=== PATIENT | male | born 1960 | race Caucasian/White ===

== ENCOUNTER 2016-07-30 14:08 | Emergency (ER) | payer MEDICARE ==
[~2016-07-30] VITALS: Ht 185.4 cm; Wt 109.0 kg
[~2016-07-30 14:08] MED LIST: ARIP1TAB87 PO; CELE200 PO; CHLO100 PO; CYCL1PAK PO; FENT25DI T-DERMAL; FIORTAB4 PO; HALC0.25 PO; HYDR-3535 PO; PROP20TA24 PO; SUMA25TA2 PO; TRAZ100 PO; Z.0.OXYGEN INH
[2016-07-30 14:32] VITALS: BP 118/79; PULSE 72; RESP 16; TEMP 98.8; O2SAT 99
[2016-07-30] MEDS ORDERED: CHLO200T5 PO (14:46)
[2016-07-30] MEDS ORDERED: TRIA1TAB21 PO (14:46)
[2016-07-30] MEDS ORDERED: FENTANYL 25 MCG/HR T-DERMAL (14:46)
[2016-07-30] MEDS ORDERED: [UNRECOGNIZED DRUG - OTHER] (14:46)
[2016-07-30] MEDS ORDERED: BUTA1CAP PO (14:46)
[2016-07-30] MEDS ORDERED: SUMATRIPTAN (14:46)
[2016-07-30] MEDS ORDERED: HYDR-3535 PO (14:46)
[2016-07-30] MEDS ORDERED: TRAZ150T75 PO (14:46)
[2016-07-30] MEDS ORDERED: PROP20TA3 PO (14:46)
[2016-07-30] MEDS ORDERED: CELE200C PO (14:46)
[2016-07-30] MEDS ORDERED: ABIL30TA2 PO (14:46)
[2016-07-30] MEDS ORDERED: oxyCODONE/ACETAMINOPHEN 5 MG/325 MG TAB PO ONE ×2 (15:15)
--- NOTE | 2016-07-30 15:36 | RADHPO ---
EXAM DATE/TIME: 07/30/2016 15:22 [place] COMPARISON: No previous studies available for comparison. INDICATIONS : Fall. Headache. RADIATION DOSE: 60.14 CTDIvol (mGy) MEDICAL HISTORY : Seizures. Hypertension. Chronic obstructive pulmonary disease. SURGICAL HISTORY : Umbilical hernia repair. ENCOUNTER: Initial ACUITY: 2 days PAIN SCALE: 6/10 LOCATION: cranial TECHNIQUE: Multiple contiguous axial images were obtained of the head. Using automated exposure control and adj ustment of the mA and/or kV according to patient size, radiation dose was kept as low as reasonably a chievable to obtain optimal diagnostic quality images. FINDINGS: CEREBRUM: The ventricles are normal for age. No evidence of midline shift, mass lesion, hemorrhage or acute in farction. No extra-axial fluid collections are seen. POSTERIOR FOSSA: The cerebellum and brainstem are intact. The 4th ventricle is midline. The cerebellopontine angle i s unremarkable. EXTRACRANIAL: The visualized portion of the orbits is intact. SKULL: The calvaria is intact. No evidence of skull fracture. CONCLUSION: Unremarkable noncontrast CT. Sravan Alvarez MD on July 30, 2016 at 15:34 Board Certified Radiologist. This report was verified electronically.
[2016-07-30] MEDS ORDERED: PERC5TAB12 PO (16:55)
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
[2016-07-30 16:59] VITALS: BP 120/80
[2016-07-31] MEDS ORDERED: FENT25DI T-DERMAL (11:21)
== END 2016-07-30 17:02 | disposition home or self-care (01) ==
LOC: PHEFT 14:08
DX: M54.5 Low back pain (principal); J44.9 Chronic obstructive pulmonary disease, unspecified; I10 Essential (primary) hypertension; Z96.641 Presence of right artificial hip joint; Z96.612 Presence of left artificial shoulder joint; Z96.698 Presence of other orthopedic joint implants; Z72.0 Tobacco use; M19.90 Unspecified osteoarthritis, unspecified site; W19.XXXA Unspecified fall, initial encounter
CPT/HCPCS: 70450; 99284

== ENCOUNTER 2016-08-26 16:57 | Emergency (ER) | payer MEDICARE ==
[~2016-08-26] VITALS: Ht 185.4 cm; Wt 112.6 kg
[~2016-08-26 16:57] MED LIST changes: +ABIL30TA2 PO; -ARIP1TAB87 PO; +BUTA1CAP PO; -CELE200 PO; +CELE200C PO; -CHLO100 PO; +CHLO200T5 PO; -CYCL1PAK PO; -FIORTAB4 PO; -HALC0.25 PO; +PERC5TAB12 PO; -PROP20TA24 PO; +PROP20TA3 PO; -SUMA25TA2 PO; +SUMATRIPTAN; -TRAZ100 PO; +TRAZ150T75 PO; +TRIA1TAB21 PO; -Z.0.OXYGEN INH; +[UNRECOGNIZED DRUG - OTHER]
[2016-08-26 17:03] VITALS: BP 131/79; PULSE 80; RESP 20; TEMP 98.3; O2SAT 98
[2016-08-26] MEDS ORDERED: BACT800T5 PO (17:51)
[2016-08-26] MEDS ORDERED: ERYTOIN10 EACH EYE (17:51)
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
== END 2016-08-26 18:00 | disposition home or self-care (01) ==
LOC: PHEFT 16:57
DX: H00.11 Chalazion right upper eyelid (principal)
CPT/HCPCS: 99283

== ENCOUNTER 2016-09-24 13:01 | Emergency (ER) | payer MEDICARE, OTHER ==
[~2016-09-24 13:01] MED LIST changes: +BACT800T5 PO; +ERYTOIN10 EACH EYE; -TRAZ150T75 PO; -TRIA1TAB21 PO
[2016-09-24 13:16] VITALS: BP 146/100; PULSE 77; RESP 20; TEMP 98.6; O2SAT 96
[2016-09-24] MEDS ORDERED: HYDR-3535 PO ×3 (14:14→16:46)
[2016-09-24] MEDS ORDERED: PROP20TA3 PO (14:14)
[2016-09-24] MEDS ORDERED: CELE100C PO (14:14)
[2016-09-24] MEDS ORDERED: CYCL1TAB29 PO (14:14)
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
== END 2016-09-24 14:38 | disposition home or self-care (01) ==
LOC: PHED 13:01
DX: G89.29 Other chronic pain (principal); M25.559 Pain in unspecified hip; Z99.3 Dependence on wheelchair; J44.9 Chronic obstructive pulmonary disease, unspecified; H91.90 Unspecified hearing loss, unspecified ear; I10 Essential (primary) hypertension; Z72.0 Tobacco use; Z87.828 Personal history of other (healed) physical injury and trauma; Z99.81 Dependence on supplemental oxygen
CPT/HCPCS: 99281

== ENCOUNTER 2016-10-08 11:43 | Emergency (ER) | payer MEDICARE ==
[~2016-10-08] VITALS: Ht 182.9 cm; Wt 112.0 kg
[~2016-10-08 11:43] MED LIST changes: -ABIL30TA2 PO; -BACT800T5 PO; -BUTA1CAP PO; +CELE100C PO; -CELE200C PO; -CHLO200T5 PO; +CYCL1TAB29 PO; -ERYTOIN10 EACH EYE; -FENT25DI T-DERMAL; -PERC5TAB12 PO; -SUMATRIPTAN; -[UNRECOGNIZED DRUG - OTHER]
[2016-10-08 12:03] VITALS: BP 111/79; PULSE 68; RESP 18; TEMP 97.7; O2SAT 97
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
[2016-10-08] MEDS ORDERED: TYLETAB34 PO (12:52)
== END 2016-10-08 13:52 | disposition home or self-care (01) ==
LOC: PHEFT 11:43
DX: M54.5 Low back pain (principal); G89.29 Other chronic pain; I10 Essential (primary) hypertension; G47.30 Sleep apnea, unspecified; H91.90 Unspecified hearing loss, unspecified ear; Z76.0 Encounter for issue of repeat prescription; Z72.0 Tobacco use; Z87.39 Personal history of other diseases of the musculoskeletal system and connective tissue; Z86.59 Personal history of other mental and behavioral disorders; Z87.09 Personal history of other diseases of the respiratory system; Z86.69 Personal history of other diseases of the nervous system and sense organs
CPT/HCPCS: 99283

== ENCOUNTER 2017-03-16 08:10 | Emergency (ER) | payer MEDICARE, OTHER ==
[~2017-03-16] VITALS: Ht 185.4 cm; Wt 106.5 kg
[~2017-03-16 08:10] MED LIST changes: +CYCL10TA PO; -CYCL1TAB29 PO; +TYLETAB34 PO
[2017-03-16 08:17] VITALS: BP 118/77; PULSE 70; RESP 16; TEMP 97.3; O2SAT 99
[2017-03-16] MEDS ORDERED: HYDR-3583 PO ×2 (08:32→08:53)
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
== END 2017-03-16 09:03 | disposition home or self-care (01) ==
LOC: PHED 08:10
DX: Z76.0 Encounter for issue of repeat prescription (principal); G89.29 Other chronic pain; M19.90 Unspecified osteoarthritis, unspecified site; E11.9 Type 2 diabetes mellitus without complications; F32.9 Major depressive disorder, single episode, unspecified; I10 Essential (primary) hypertension; J44.9 Chronic obstructive pulmonary disease, unspecified; F17.290 Nicotine dependence, other tobacco product, uncomplicated
CPT/HCPCS: 99281

== ENCOUNTER 2017-04-02 11:21 | Emergency (ER) | payer OTHER ==
[~2017-04-02] VITALS: Ht 185.4 cm; Wt 106.0 kg
[~2017-04-02 11:21] MED LIST changes: -CELE100C PO; -CYCL10TA PO; -HYDR-3535 PO; +HYDR-3583 PO; -TYLETAB34 PO
[2017-04-02 11:24] VITALS: BP 129/86; PULSE 50; RESP 16; TEMP 97.8; O2SAT 99
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
--- NOTE | 2017-04-02 12:33 | RADRPT ---
EXAM DATE/TIME: 04/02/2017 12:11 [facility] COMPARISON: CT BRAIN W/O CONTRAST, July 30, 2016, 15:22. INDICATIONS : Fell out of bed this morning. Headache. RADIATION DOSE: 60.38 CTDIvol (mGy) MEDICAL HISTORY : Seizures. Hypertension. Brain injury. Anticoagulant therapy. SURGICAL HISTORY : None. ENCOUNTER: Initial ACUITY: 1 day PAIN SCALE: 8/10 LOCATION: Bilateral cranial TECHNIQUE: Multiple contiguous axial images were obtained of the head. Using automated exposure control and adj ustment of the mA and/or kV according to patient size, radiation dose was kept as low as reasonably a chievable to obtain optimal diagnostic quality images. DICOM format image data is available electro nically for review and comparison. FINDINGS: CEREBRUM: The ventricles are normal for age. Mild stable cortical atrophy overlie both frontal lobes. No eviden ce of midline shift, mass lesion, hemorrhage or acute infarction. No extra-axial fluid collections a re seen. POSTERIOR FOSSA: The cerebellum and brainstem are intact. The 4th ventricle is midline. The cerebellopontine angle i s unremarkable. EXTRACRANIAL: The visualized portion of the orbits is intact. SKULL: The calvaria is intact. No evidence of skull fracture. CONCLUSION: Unremarkable and stable CT scan of the brain compared to the prior examination. Robert Jones MD on April 02, 2017 at 12:29 Board Certified Radiologist. This report was verified electronically.
[2017-04-02] MEDS ORDERED: ACETAMINOPHEN 325 MG TAB PO ONE (12:45)
[2017-04-02] MEDS ORDERED: AMBI10TA PO (13:06)
[2017-04-02] MEDS ORDERED: CELE200C PO (13:06)
== END 2017-04-02 13:28 | disposition home or self-care (01) ==
LOC: PHED 11:21
DX: G44.309 Post-traumatic headache, unspecified, not intractable (principal); I10 Essential (primary) hypertension; Z72.0 Tobacco use
CPT/HCPCS: 70450; 99284

== ENCOUNTER 2017-04-05 11:33 | Emergency (ER) | payer OTHER ==
[~2017-04-05] VITALS: Ht 177.8 cm; Wt 100.0 kg
[~2017-04-05 11:33] MED LIST changes: +AMBI10TA PO; +CELE200C PO
[2017-04-05 12:03] VITALS: BP 114/73; PULSE 68; RESP 18; TEMP 97.6; O2SAT 99
[2017-04-05] MEDS ORDERED: ACETAMINOPHEN/HYDROcodone 325 MG/10 MG TAB PO ONE (12:15)
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
[2017-04-05 13:01] LABS: AUTOMATED NEUTROPHIL # 2.3 TH/MM3 (1.8-7.7); BASOPHIL # 0.1 TH/MM3 (0-0.2); BASOPHIL % 1.2 % (0.0-2.0); EOSINOPHIL # 0.1 TH/MM3 (0-0.4); EOSINOPHIL % 2.9 % (0.0-4.0); HEMATOCRIT 41.6 % (39.0-51.0); HEMOGLOBIN 14.7 GM/DL (13.0-17.0); LYMPH % 29.9 % (9.0-44.0); LYMPHOCYTE # 1.3 TH/MM3 (1.0-4.8); MEAN CELL VOLUME 89.7 FL (80.0-100.0); MEAN CORPUSCULAR HEMOGLOBIN 31.7 PG (27.0-34.0); MEAN CORPUSCULAR HGB CONC 35.4 % (32.0-36.0); MEAN PLATELET VOLUME 7.6 FL (7.0-11.0); MONO % 12.9 % (0.0-8.0); MONOCYTE # 0.6 TH/MM3 (0-0.9); NEUT % 53.1 % (16.0-70.0); PLATELET COUNT 192 TH/MM3 (150-450); RED BLOOD COUNT 4.64 MIL/MM3 (4.50-5.90); RED CELL DISTRIBUTION WIDTH 13.3 % (11.6-17.2); WHITE BLOOD COUNT 4.4 TH/MM3 (4.0-11.0)
[2017-04-05 13:16] LABS: ALBUMIN 3.2 GM/DL (3.4-5.0); AST (GOT) 14 U/L (15-37); BICARBONATE 29.3 MEQ/L (21.0-32.0); BLOOD UREA NITROGEN 20 MG/DL (7-18); CALCIUM 8.1 MG/DL (8.5-10.1); CHLORIDE 105 MEQ/L (98-107); CREATININE 1.04 MG/DL (0.60-1.30); GLOMERULAR FILTRATION RATE 74 ML/MIN (>89); GLUCOSE,RANDOM 96 MG/DL (74-106); SODIUM (NA) 139 MEQ/L (136-145)
[2017-04-05 13:26] LABS: ACETAMINOPHEN LESS THAN 2.0 MCG/ML (10.0-30.0); ALKALINE PHOSPHATASE 72 U/L (45-117); ALT (GPT) 14 U/L (12-78); TOTAL BILIRUBIN ADULT 0.2 MG/DL (0.2-1.0); TOTAL PROTEIN 6.6 GM/DL (6.4-8.2)
[2017-04-06 01:06] VITALS: BP 117/74; PULSE 51; RESP 18; O2SAT 98
[2017-04-06] MEDS ORDERED: IBUPROFEN 600 MG TAB PO ONE (01:15)
[2017-04-06] MEDS ORDERED: ACETAMINOPHEN 325 MG TAB PO ONE (04:15)
[2017-04-06] MEDS ORDERED: CELECOXIB 200 MG CAP PO ONE (08:15)
--- NOTE | 2017-04-06 11:39 | PD ---
Physical Exam Date Seen by Provider: Apr 06, 2017 Time Seen by Provider: 11:37 Narrative 56-year-old male patient was brought to the emergency Department under Wright act. The patient has been seen and evaluated by the psychiatric nurse practitioner, Peyton, to the Wright act. The patient denies any suicidal or homicidal ideation. He is happy and excited to go home. Data Data Last Documented VS Vital Signs Date Time Temp Pulse Resp B/P (MAP) Pulse Ox O2 Delivery O2 Flow Rate FiO2 04/06/17 01:06 51 18 117/74 (88) 98 Nasal Cannula 2.00 04/05/17 12:03 97.6 Orders Orders Complete Blood Count With Diff (04/05/17 12:12) Comprehensive Metabolic Panel (04/05/17 12:12) Thyroid Stimulating Hormone (04/05/17 12:12) Psych Screen (04/05/17 12:12) Drug Screen, Random Urine (04/05/17 12:12) Alcohol (Ethanol) (04/05/17 12:12) Salicylates (Aspirin) (04/05/17 12:12) Tylenol (Acetaminophen) (04/05/17 12:12) Acetamin-Hydrocod 325-10 Mg ([place] 10-32 (04/05/17 12:15) Ibuprofen (Motrin) (04/06/17 01:15) Acetaminophen (Tylenol) (04/06/17 04:15) Diet Regular Basic (04/06/17 Breakfast) Celecoxib (Celebrex) (04/06/17 08:15) Labs Laboratory Tests Test 04/05/17 11:57 04/05/17 12:30 Urine Opiates Screen NEG Urine Barbiturates Screen NEG Urine Amphetamines Screen NEG Urine Benzodiazepines Screen NEG Urine Cocaine Screen NEG Urine Cannabinoids Screen NEG White Blood Count 4.4 TH/MM3 Red Blood Count 4.64 MIL/MM3 Hemoglobin 14.7 GM/DL Hematocrit 41.6 % Mean Corpuscular Volume 89.7 FL Mean Corpuscular Hemoglobin 31.7 PG Mean Corpuscular Hemoglobin Concent 35.4 % Red Cell Distribution Width 13.3 % Platelet Count 192 TH/MM3 Mean Platelet Volume 7.6 FL Neutrophils (%) (Auto) 53.1 % Lymphocytes (%) (Auto) 29.9 % Monocytes (%) (Auto) 12.9 % Eosinophils (%) (Auto) 2.9 % Basophils (%) (Auto) 1.2 % Neutrophils # (Auto) 2.3 TH/MM3 Lymphocytes # (Auto) 1.3 TH/MM3 Monocytes # (Auto) 0.6 TH/MM3 Eosinophils # (Auto) 0.1 TH/MM3 Basophils # (Auto) 0.1 TH/MM3 CBC Comment DIFF FINAL Differential Comment Blood Urea Nitrogen 20 MG/DL Creatinine 1.04 MG/DL Random Glucose 96 MG/DL Total Protein 6.6 GM/DL Albumin 3.2 GM/DL Calcium Level 8.1 MG/DL Alkaline Phosphatase 72 U/L Aspartate Amino Transf (AST/SGOT) 14 U/L Alanine Aminotransferase (ALT/SGPT) 14 U/L Total Bilirubin 0.2 MG/DL Sodium Level 139 MEQ/L Potassium Level 4.5 MEQ/L Chloride Level 105 MEQ/L Carbon Dioxide Level 29.3 MEQ/L Anion Gap 5 MEQ/L Estimat Glomerular Filtration Rate 74 ML/MIN Thyroid Stimulating Hormone 3rd Gen 1.020 uIU/ML Salicylates Level 5.5 MG/DL Acetaminophen Level LESS THAN 2.0 MCG/ML Ethyl Alcohol Level LESS THAN 3 MG/DL MDM Supervised Visit with [facility]: No Narrative Course 56-year-old male was brought to the emergency Department under Wright act. His Wright act has been lifted by the psychiatric nurse practitioner. The patient denies any suicidal or homicidal ideations and would like to go home. The patient was discharged in stable condition with instructions, including return instructions and follow up instructions. Diagnosis Primary Impression: Chronic pain Qualified Codes: G89.29 - Other chronic pain Referrals: Primary Care Physician call for appointment Patient Instructions: Chronic Pain (ED), General Instructions Additional Instruction: Follow-up with your primary care physician. Return to the emergency department for any acute worsening of symptoms. Med/Other Pt SpecificInfo: No Change to Meds Disposition: 01 DISCHARGE HOME Condition: Stable Domenica Manriquez Apr 06, 2017 11:39
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
== END 2017-04-06 13:26 | disposition home or self-care (01) ==
LOC: NEDAMB 11:33 → NEPD 04-06 13:26
DX: G89.29 Other chronic pain (principal); F43.20 Adjustment disorder, unspecified; M19.90 Unspecified osteoarthritis, unspecified site; I10 Essential (primary) hypertension; J44.9 Chronic obstructive pulmonary disease, unspecified; E11.9 Type 2 diabetes mellitus without complications; F60.9 Personality disorder, unspecified; F17.290 Nicotine dependence, other tobacco product, uncomplicated
CPT/HCPCS: 80053; 80307; 84443; 85025; 99284

== ENCOUNTER → 2017-05-29 | Outpatient (CLI) | payer OTHER ==
[~2017-05-29] MED LIST changes: +GABA300C5 PO
--- NOTE | 2017-06-12 13:54 | RSPPFT ---
DATE OF PROCEDURE: 05/29/17 COMMENTS: Spirometry with FVC of 2.5 at 48% of predicted, FEV1 of 1.2 at 28%, FEV1/FVC ratio is 48%. There is a positive and significant response to acutely inhaled bronchodilator. Slow vital capacity is 61% of predicted. TLC is 76%. Diffusion capacity is 57% of predicted and normal when corrected for alveolar volume. IMPRESSION: 1. Moderately severe airways obstruction. 2. Positive and significant response to acutely inhaled bronchodilator. 3. Associated restrictive component. 4. Reduced diffusion but normal when corrected for lung volumes.
== END ==
LOC: PHRSP 10:29
PROVIDERS: ATTEND Internal Medicine Sleep Medicine
DX: R06.89 Other abnormalities of breathing (principal)
CPT/HCPCS: 36600; 82805; 94060; 94729

== ENCOUNTER 2017-06-04 15:45 | Inpatient (IN) | payer OTHER, MEDICARE ==
[2017-06-04] VITALS (15 sets, daily range): BP systolic 93–115; BP diastolic 53–68; PULSE 66–84; RESP 15–21; TEMP 97.9–99.5; O2SAT 97–100
[~2017-06-04] VITALS: Ht 180.3 cm; Wt 111.3 kg
[~2017-06-04 15:45] MED LIST changes: -GABA300C5 PO
[2017-06-04] MEDS ORDERED: SODIUM CHLOR 0.9% 1000 ML INJ 1,000 ML IV SCH (15:55)
[2017-06-04] MEDS ORDERED: DOPamine 800 MG/500 ML INJ 500 ML IV PRN (16:00)
[2017-06-04] MEDS ORDERED: SODIUM CHLORIDE 0.9% FLUSH 10 ML FLUSH IV FLUSH PRN (16:00)
[2017-06-04] MEDS ORDERED: TERBUTALINE INJ 1 MG/ML AMP SQ PRN ×2 (16:00→17:45)
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
[2017-06-04] MEDS ORDERED: VANCOMYCIN INJ 1,000 MG in SODIUM CHLOR 0.9% 250 ML INJ 250 ML IV ONE (16:45)
[2017-06-04] MEDS ORDERED: PIPERACIL-TAZO 4.5 GM PREMIX 100 ML IV ONE (16:45)
[2017-06-04] MEDS ORDERED: SODIUM CHLOR 0.9% 1000 ML INJ 1,000 ML IV ONE ×2 (16:45→19:15)
--- NOTE | 2017-06-04 16:53 | RADRPT ---
EXAM DATE/TIME: 06/04/2017 16:17 [facility] COMPARISON: No previous studies available for comparison. INDICATIONS : Short of breath. MEDICAL HISTORY : None. SURGICAL HISTORY : None. ENCOUNTER: Initial ACUITY: 1 day PAIN SCORE: 0/10 LOCATION: Bilateral chest FINDINGS: Endotracheal tube in good position. NG enters stomach. Ill-defined airspace disease in the upper righ t lung which could represent a bronchopneumonia. Minimal basilar density as well. No significant effu heidi. No pneumothorax. CONCLUSION: 1. Patchy air space disease in the right lung especially the upper right lung. Differential diagnosis includes pneumonia and aspiration. Endotracheal tube and nasogastric tube in good position. Ludin Woods MD on June 04, 2017 at 16:49 Board Certified Radiologist. This report was verified electronically.
--- NOTE | 2017-06-04 17:01 | RADRPT ---
EXAM DATE/TIME: 06/04/2017 16:42 [facility] COMPARISON: No previous studies available for comparison. INDICATIONS : Altered mental status, post code. RADIATION DOSE: 56.35 CTDIvol (mGy) MEDICAL HISTORY : Seizures. Hypertension. Chronic obstructive pulmonary disease.diabetic SURGICAL HISTORY : None. ENCOUNTER: Initial ACUITY: 1 day PAIN SCALE: Non-responsive LOCATION: cranial TECHNIQUE: Multiple contiguous axial images were obtained of the head. Using automated exposure control and adj ustment of the mA and/or kV according to patient size, radiation dose was kept as low as reasonably a chievable to obtain optimal diagnostic quality images. DICOM format image data is available electro nically for review and comparison. FINDINGS: CEREBRUM: The ventricles are normal for age. No evidence of midline shift, mass lesion, hemorrhage or acute in farction. No extra-axial fluid collections are seen. POSTERIOR FOSSA: The cerebellum and brainstem are intact. The 4th ventricle is midline. The cerebellopontine angle i s unremarkable. EXTRACRANIAL: The visualized portion of the orbits is intact. SKULL: The calvaria is intact. No evidence of skull fracture. CONCLUSION: Normal examination. Ludin Woods MD on June 04, 2017 at 16:56 Board Certified Radiologist. This report was verified electronically.
[2017-06-04 17:21] LABS: EOSINOPHIL % 0.1 % (0.0-4.0); HEMATOCRIT 43.3 % (39.0-51.0); HEMOGLOBIN 13.6 GM/DL (13.0-17.0); LYMPH % 9.7 % (9.0-44.0); LYMPHOCYTE # 2.9 TH/MM3 (1.0-4.8); MEAN CELL VOLUME 98.7 FL (80.0-100.0); MEAN CORPUSCULAR HEMOGLOBIN 30.9 PG (27.0-34.0); MEAN CORPUSCULAR HGB CONC 31.3 % (32.0-36.0); MEAN PLATELET VOLUME 8.7 FL (7.0-11.0); MONO % 12.5 % (0.0-8.0); MONOCYTE # 3.7 TH/MM3 (0-0.9); NEUT % 77.7 % (16.0-70.0); PLATELET COUNT 308 TH/MM3 (150-450); RED BLOOD COUNT 4.39 MIL/MM3 (4.50-5.90); RED CELL DISTRIBUTION WIDTH 15.4 % (11.6-17.2); WHITE BLOOD COUNT 29.5 TH/MM3 (4.0-11.0)
[2017-06-04] MEDS ORDERED: GABA300C5 PO (17:37)
[2017-06-04] MEDS ORDERED: Vancomycin Consult Pharmacy 1 EA OTHER SCH ×2 (17:45)
[2017-06-04] MEDS ORDERED: GLUCAGON 1 MG/ML VIAL OTHER PRN ×2 (17:45→21:15)
[2017-06-04] MEDS ORDERED: BISACODYL 10 MG SUPP RECTAL PRN (17:45)
[2017-06-04] MEDS ORDERED: NOREPINEPHRINE-DEXTROSE DRIP 250 ML IV PRN (17:45)
[2017-06-04] MEDS ORDERED: CHLORHEXIDINE GLUCONATE 2 % 1 PACK (2 CLOTHS) TOP PRN (17:45)
[2017-06-04] MEDS ORDERED: DEXTROSE 50% IN WATER 50 ML VIAL(D50) IV PUSH PRN ×2 (17:45→21:15)
[2017-06-04] MEDS ORDERED: RESP: ALBUTEROL 2.5 MG/IPRATROPIUM 0.5 MG NEB (PRN) INH (17:45)
[2017-06-04] MEDS ORDERED: LACTULOSE SYRUP 20 GM/30 ML CUP PO PRN (17:45)
[2017-06-04] MEDS ORDERED: MISCELLANEOUS NURSING INFORMATION XX SCH (17:45)
[2017-06-04] MEDS ORDERED: MAGNESIUM HYDROXIDE SUSP 30 ML CUP PO PRN (17:45)
[2017-06-04] MEDS ORDERED: SENNOSIDES 8.6 MG TAB PO PRN (17:45)
[2017-06-04 18:09] LABS: BANDS 26 % (0-6); CORRECTED NUCLEATED RBC 2 /100 WBC (0-0); LYMPHOCYTES 8 % (9-44); METAMYELOCYTES 1 % (0-1); MONOCYTES 16 % (0-8); MYELOCYTES 2 % (0-0); NEUTROPHIL # MANUAL DIFF 22.4 TH/MM3 (1.8-7.7); NUCLEATED RED BLOOD CELL 2 (0-0); POLYS (SEG NEUTROPHILS) 47 % (16-70)
[2017-06-04 18:11] LABS: TOXIC GRANULATION 1+ (NORMAL)
[2017-06-04] MEDS ORDERED: RESP: ALBUTEROL 2.5 MG/IPRATROPIUM 0.5 MG NEB (SCH) INH (18:30)
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
[2017-06-04 18:35] LABS: INTERNATIONAL NORMALIZED RATIO 1.1 RATIO; PROTHROMBIN TIME - PATIENT 11.4 SEC (9.8-11.6)
[2017-06-04 18:52] LABS: LACTIC ACID SEPSIS PROTOCOL 7.1 mmol/L (0.4-2.0)
[2017-06-04] MEDS ORDERED: INSULIN NovoLIN REGULAR SUPPLEMENTAL SCALE SQ SCH (19:00)
--- NOTE | 2017-06-04 19:08 | RADRPT ---
EXAM DATE/TIME: 06/04/2017 18:37 [facility] COMPARISON: CHEST SINGLE AP, June 04, 2017, 16:17. INDICATIONS : Central line placement. MEDICAL HISTORY : Seizures. Hypertension. Chronic obstructive pulmonary disease. Diabetes. SURGICAL HISTORY : None. ENCOUNTER: Subsequent ACUITY: 1 day PAIN SCORE: Non-responsive. LOCATION: Bilateral chest FINDINGS: The ET tube is 4 cm in micron. The NG tube is directed into the stomach. There is a left subclavian l ine in place with the tip overlying the SVC. The heart size is normal. There is diffuse prominence of the interstitial markings. There some focal density in the right upper lung. A significant effusion is not seen. There is a plate seen at the distal lateral left clavicle. No pneumothorax is seen. CONCLUSION: 1. Diffuse prominence of the interstitial markings likely representing edema versus underlying chroni c interstitial disease. 2. Focal alveolar density in the right upper lung. 3. Tubes and lines in good position. Jakob Carvalho MD on June 04, 2017 at 19:04 Board Certified Radiologist. This report was verified electronically.
[2017-06-04 19:44] LABS: ALBUMIN 2.1 GM/DL (3.4-5.0); BICARBONATE 27.9 MEQ/L (21.0-32.0); BLOOD UREA NITROGEN 41 MG/DL (7-18); CALCIUM 7.6 MG/DL (8.5-10.1); CHLORIDE 102 MEQ/L (98-107); CREATININE 2.86 MG/DL (0.60-1.30); GLOMERULAR FILTRATION RATE 23 ML/MIN (>89); GLUCOSE,RANDOM 183 MG/DL (74-106); SODIUM (NA) 142 MEQ/L (136-145)
[2017-06-04] MEDS: RESP: ALBUTEROL 2.5 MG/IPRATROPIUM 0.5 MG NEB (SCH) NEB (19:47)
[2017-06-04 19:54] LABS: ALKALINE PHOSPHATASE 139 U/L (45-117); ALT (GPT) 572 U/L (12-78); AST (GOT) 1941 U/L (15-37); TOTAL BILIRUBIN ADULT 0.4 MG/DL (0.2-1.0); TOTAL PROTEIN 6.8 GM/DL (6.4-8.2); TROPONIN I 0.53 NG/ML (0.02-0.05)
[2017-06-04 19:56] LABS: ACETAMINOPHEN LESS THAN 2.0 MCG/ML (10.0-30.0)
[2017-06-04] MEDS ORDERED: LACTATED RINGER'S 1000 ML INJ 500 ML IV ONE (20:45)
--- NOTE | 2017-06-04 20:53 | PD.PROCEDR ---
Procedure Note Procedure DATE: 06/05/17 PROCEDURE: Right radial arterial catheter placement INDICATION: Hemodynamic monitoring for shock DETAILS OF PROCEDURE The patient was placed in supine position. The skin was cleansed with Chloraprep. Additional barrier precautions included large sterile drape, sterile gloves, sterile gown, face mask, and hat. 1% lidocaine was used for local anesthesia. Under direct ultrasound guidance and on the first attempt, the artery was accessed with Arrow radial artery catheter. The guide wire was advanced. Using Seldinger technique 20 gauge arterial catheter was placed. The needle and guide wire were removed. The catheter was connected to a transducer line and flushed with saline. The video monitor displayed normal arterial wave forms. The catheter was secured with 2-0 silk. A sterile dressing with antibiotic disc was applied. ESTIMATED BLOOD LOSS: minimal COMPLICATIONS: None Kailyn Gomez MD Jun 04, 2017 20:53
[2017-06-04] MEDS: DOCUSATE SODIUM 50 MG/SENNA 8.6 MG TAB PO SCH (20:59)
[2017-06-04] MEDS: FAMOTIDINE 20 MG/2 ML VIAL IV PUSH SCH (20:59)
[2017-06-04] MEDS: AZITHROMYCIN INJ 500 MG in SODIUM CHLOR 0.9% 250 ML INJ 250 ML IV SCH (20:59)
[2017-06-04] MEDS ORDERED: VANCOMYCIN 1,000 MG/NS 250 ML IV ONE ×2 (21:00)
[2017-06-04] MEDS ORDERED: fentaNYL DRIP 250 ML IV PRN (21:00)
[2017-06-04] MEDS ORDERED: CISATRACURIUM BESYLATE 20 MG/10 ML VIAL IV PUSH ONE (21:00)
[2017-06-04] MEDS ORDERED: MIDAZOLAM 100 MG/100 ML INJ 100 ML IV PRN (21:00)
[2017-06-04] MEDS ORDERED: LORazepam 2 MG/ML VIAL IV PUSH PRN (21:00)
--- NOTE | 2017-06-04 21:50 | PD.PROCEDR ---
Procedure Note Procedure Date: 06/05/17 Procedure: Fiberoptic bronchoscopy with bronchoalveolar lavage, diagnostic and therapeutic Indication: Acute respiratory failure with difficulty ventilating. High peak pressures on vent and copious thick respiratory secretions. Details of procedure: Informed consent was obtained from patient's after discussion of risks, benefits, alternatives. The patient was preoxygenated with 100% FiO2 via endotracheal tube. I entered the endotracheal tube with a flexible bronchoscope. There were copious mucopurulent secretions throughout pulmonary subsegments that were removed with assistance of 5 mL saline wash. The bronchoscope was advanced into the right middle lobe and 40 mLs of saline was instilled. There was 25 mL of cloudy yellow return that was sent for Gram stain culture and sensitivity. All subsegments were reexplored and additional secretions were suctioned until subsegments appeared clear. The patient tolerated the procedure well without any apparent complications. Improvement in ventilator pressures were noted post procedure. Kailyn Gomez MD Jun 04, 2017 21:50
[2017-06-04] MEDS: HYDROCORTISONE SOD SUCCINATE 100 MG VIAL IV PUSH SCH (21:55)
[2017-06-04] MEDS ORDERED: INSULIN ASPART SUPPLEMENTAL SCALE SQ SCH (22:00)
[2017-06-04] MEDS ORDERED: MIDAZOLAM HCL 2 MG/2 ML VIAL IV PUSH ONE (22:00)
[2017-06-04] MEDS ORDERED: ASPIRIN 81 MG CHEW TAB OG-TUBE ONE (22:00)
[2017-06-04 22:30] LABS: BICARBONATE 28.2 MEQ/L (21.0-32.0); CALCIUM 7.3 MG/DL (8.5-10.1); CREATININE 2.88 MG/DL (0.60-1.30); MAGNESIUM 2.5 MG/DL (1.5-2.5)
[2017-06-04] MEDS: NOREPINEPHRINE INJ 4 MG in SODIUM CHLOR 0.9% 250 ML INJ 246 ML IV PRN (22:37)
[2017-06-04] MEDS: PIPERACIL-TAZO 4.5 GM PREMIX 100 ML IV SCH (22:37)
[2017-06-04 22:45] LABS: CALCIUM-PROTEIN CORRECTED 7.6 MG/DL (8.5-10.1); TOTAL PROTEIN 6.6 GM/DL (6.4-8.2)
[2017-06-04] MEDS: SODIUM CHLORIDE 0.9% FLUSH 10 ML FLUSH IV FLUSH SCH (23:08)
[2017-06-04] MEDS: HEPARIN SODIUM - SQ 10,000 UNITS/ML VIAL SQ SCH (23:08)
[2017-06-04] MEDS: CISATRACURIUM INJ 100 MG in SODIUM CHLOR 0.9% 250 ML INJ 240 ML IV PRN (23:13)
[2017-06-04] MEDS ORDERED: RESP: ACETYLCYSTEINE 20% 10 ML NEB NEB SCH (23:30)
[2017-06-04] MEDS: RESP: ALBUTEROL 2.5 MG/3 ML NEB (PRN) INH (23:52)
[2017-06-04] MEDS: RESP: ACETYLCYSTEINE 20% 4 ML NEB NEB SCH (23:52)
[2017-06-05] VITALS (33 sets, daily range): BP systolic 100–176; BP diastolic 68–102; PULSE 71–98; RESP 20–24; O2SAT 96–100
[2017-06-05] MEDS: HYDROCORTISONE SOD SUCCINATE 100 MG VIAL IV PUSH SCH ×2 (00:13→05:03)
[2017-06-05] MEDS ORDERED: DEXTROSE 50% IN WATER 50 ML VIAL(D50) IV PUSH PRN (01:45)
[2017-06-05] MEDS ORDERED: GLUCAGON 1 MG/ML VIAL OTHER PRN (01:45)
[2017-06-05] MEDS ORDERED: INSULIN ASPART SUPPLEMENTAL SCALE SQ SCH (02:00)
[2017-06-05] MEDS: CISATRACURIUM INJ 100 MG in SODIUM CHLOR 0.9% 250 ML INJ 240 ML IV PRN ×2 (02:45→06:34)
[2017-06-05] MEDS: ARTIFICIAL TEARS OPTH OINT 3.5 APPLIC/3.5 GM TUBO EACH EYE PRN ×2 (02:54→20:07)
[2017-06-05 03:18] LABS: AUTOMATED NEUTROPHIL # 17.6 TH/MM3 (1.8-7.7); BASOPHIL # 0.1 TH/MM3 (0-0.2); BASOPHIL % 0.5 % (0.0-2.0); HEMATOCRIT 42.2 % (39.0-51.0); HEMOGLOBIN 13.9 GM/DL (13.0-17.0); LYMPH % 6.2 % (9.0-44.0); LYMPHOCYTE # 1.3 TH/MM3 (1.0-4.8); MEAN CELL VOLUME 93.6 FL (80.0-100.0); MEAN CORPUSCULAR HEMOGLOBIN 30.9 PG (27.0-34.0); MEAN PLATELET VOLUME 7.9 FL (7.0-11.0); MONO % 6.9 % (0.0-8.0); MONOCYTE # 1.4 TH/MM3 (0-0.9); NEUT % 86.4 % (16.0-70.0); PLATELET COUNT 264 TH/MM3 (150-450); RED BLOOD COUNT 4.51 MIL/MM3 (4.50-5.90); RED CELL DISTRIBUTION WIDTH 14.3 % (11.6-17.2); WHITE BLOOD COUNT 20.3 TH/MM3 (4.0-11.0)
[2017-06-05 03:51] LABS: ALBUMIN 1.9 GM/DL (3.4-5.0); CALCIUM 7.3 MG/DL (8.5-10.1); CALCIUM-PROTEIN CORRECTED 7.8 MG/DL (8.5-10.1); CREATININE 3.15 MG/DL (0.60-1.30); MAGNESIUM 2.1 MG/DL (1.5-2.5); TOTAL BILIRUBIN ADULT 0.4 MG/DL (0.2-1.0); TOTAL PROTEIN 6.2 GM/DL (6.4-8.2); TROPONIN I 0.34 NG/ML (0.02-0.05)
[2017-06-05] MEDS: RESP: ALBUTEROL 2.5 MG/3 ML NEB (PRN) INH (03:59)
[2017-06-05] MEDS: RESP: ACETYLCYSTEINE 20% 4 ML NEB NEB SCH ×4 (04:00→22:38)
[2017-06-05] MEDS ORDERED: LACTATED RINGER'S 1000 ML INJ 1,000 ML IV SCH (04:00)
[2017-06-05] MEDS: INSULIN ASPART SUPPLEMENTAL SCALE SQ SCH ×4 (04:00→21:48)
[2017-06-05] MEDS: CHLORHEXIDINE GLUCONATE 2 % 1 PACK (2 CLOTHS) TOP SCH (04:00)
[2017-06-05] MEDS: PIPERACIL-TAZO 4.5 GM PREMIX 100 ML IV SCH ×2 (04:30→12:02)
[2017-06-05 04:37] LABS: BANDS 28 % (0-6); LYMPHOCYTES 3 % (9-44); MONOCYTES 7 % (0-8); NEUTROPHIL # MANUAL DIFF 18.3 TH/MM3 (1.8-7.7); POLYS (SEG NEUTROPHILS) 62 % (16-70)
[2017-06-05 04:38] LABS: TOXIC GRANULATION 1+ (NORMAL); TOXIC VACUOLATION PRESENT (NONE SEEN)
[2017-06-05] MEDS: CHLORHEXIDINE 0.12% (ORAL KIT) 15 ML CUP MT SCH ×2 (08:08→19:54)
[2017-06-05] MEDS: SODIUM CHLORIDE 0.9% FLUSH 10 ML FLUSH IV FLUSH SCH ×2 (08:09→19:54)
[2017-06-05] MEDS: DOCUSATE SODIUM 50 MG/SENNA 8.6 MG TAB PO SCH ×2 (08:09→19:51)
[2017-06-05] MEDS: HEPARIN SODIUM - SQ 10,000 UNITS/ML VIAL SQ SCH ×2 (08:09→19:52)
[2017-06-05] MEDS: FAMOTIDINE 20 MG/2 ML VIAL IV PUSH SCH (08:09)
[2017-06-05] MEDS ORDERED: PHARMACY ORDERED LAB ONE (08:45)
[2017-06-05] MEDS: RESP: ALBUTEROL 2.5 MG/IPRATROPIUM 0.5 MG NEB (SCH) NEB ×4 (09:07→22:38)
[2017-06-05 09:53] LABS: BICARBONATE 26.3 MEQ/L (21.0-32.0); BLOOD UREA NITROGEN 59 MG/DL (7-18); CALCIUM 7.2 MG/DL (8.5-10.1); CHLORIDE 108 MEQ/L (98-107); CREATININE 3.78 MG/DL (0.60-1.30); GLOMERULAR FILTRATION RATE 17 ML/MIN (>89); GLUCOSE,RANDOM 206 MG/DL (74-106); MAGNESIUM 2.3 MG/DL (1.5-2.5); SODIUM (NA) 145 MEQ/L (136-145)
[2017-06-05 10:04] LABS: CALCIUM-PROTEIN CORRECTED 7.7 MG/DL (8.5-10.1); TOTAL PROTEIN 6.1 GM/DL (6.4-8.2); TROPONIN I 0.15 NG/ML (0.02-0.05)
--- NOTE | 2017-06-05 10:43 | PD.PROCEDR ---
Procedure Note Procedure DATE: Received her was performed . This procedure note is injured later. Heat Exchange Catheter Placement: Right femoral vein. INDICATION: Induced therapeutic hypothermia. CONSENT Informed consent for procedure was obtained from patient's . DESCRIPTION OF THE PROCEDURE The patient was placed in supine position. The skin was cleansed with Chloraprep. Additional barrier precautions included large sterile drape, sterile gloves, sterile gown, face mask, and hat. 1 % lidocaine was used for local anesthesia. On a single attempt, the vein was accessed with an introducer needle. The guide wire was advanced and the tract was dilated. When catheter was advancing, wire frayed and therefore wire and catheter were immediately removed. Wire was removed completely. A new wire was obtained. On a single attempt, the vein was accessed again with introducer needle. The wire was advanced. The wire was noted to be in the vein per ultrasound imaging.. The tract was dilated. Using Seldinger technique a 9.3 [place] Zoll Quattro Heat Exchange catheter was advanced. The guide wire was removed. All ports had good return of dark venous blood and flushed easily with saline. The central line was secured with 2.0 silk. A sterile dressing with antibiotic disc was applied. ESTIMATED BLOOD LOSS: Minimal COMPLICATIONS: No apparent complications. Kailyn Gomez MD Jun 05, 2017 10:43
--- NOTE | 2017-06-05 11:54 | ECHRPT ---
Indication: CARDIAC ARREST CONCLUSIONS The left ventricular systolic function is normal with an estimated ejection fraction in the range of 60-65%. Normal left ventricular size. Wall thickness is normal. No regional wall motion abnormalities are present. There is trace tricuspid valve regurgitation. The estimated pulmonary arterial pressure is 30.8 mmHg. BP: / HR: Rhythm: Sinus MEASUREMENTS (Male / Female) Normal Values Technical Quality:Fair 2D ECHO LV Diastolic Diameter PLAX 4.1 cm 4.2 - 5.9 / 3.9 - 5.3 cm LV Systolic Diameter PLAX 2.8 cm IVS Diastolic Thickness 1.1 cm 0.6 - 1.0 / 0.6 - 0.9 cm LVPW Diastolic Thickness 1.1 cm 0.6 - 1.0 / 0.6 - 0.9 cm LV Relative Wall Thickness 0.5 LVOT Diameter 2.1 cm LA Systolic Diameter LX 3.4 cm 3.0 - 4.0 / 2.7 - 3.8 cm M-MODE Aortic Root Diameter MM 3.3 cm LA Systolic Diameter MM 3.9 cm LA Ao Ratio MM 1.2 AV Cusp Separation MM 2.2 cm DOPPLER AV Peak Velocity 111.0 cm/s AV Peak Gradient 4.9 mmHg LVOT Peak Velocity 79.0 cm/s LVOT Peak Gradient 2.5 mmHg AV Area Cont Eq pk 2.5 cm TR Peak Velocity 228.0 cm/s TR Peak Gradient 20.8 mmHg Right Atrial Pressure 10.0 mmHg Pulmonary Artery Systolic Pressu 30.8 mmHg Right Ventricular Systolic Press 30.8 mmHg PV Peak Velocity 69.2 cm/s PV Peak Gradient 1.9 mmHg FINDINGS LEFT VENTRICLE The left ventricular systolic function is normal with an estimated ejection fraction in the range of 60-65%. Normal left ventricular size. Wall thickness is normal. No regional wall motion abnormalities are present. RIGHT VENTRICLE Normal right ventricular size and systolic function. LEFT ATRIUM The left atrial size is normal. RIGHT ATRIUM The right atrial size is normal. ATRIAL SEPTUM Normal atrial septal thickness without atrial level shunting by limited color doppler interrogation. AORTA The aortic root and proximal ascending aorta are normal in size on limited imaging. MITRAL VALVE Structurally normal mitral valve. No mitral valve stenosis or regurgitation. AORTIC VALVE Trileaflet aortic valve. No aortic valve stenosis or regurgitation. TRICUSPID VALVE Structurally normal tricuspid valve. There is trace tricuspid valve regurgitation. The estimated pulmonary arterial pressure is 30.8 mmHg. PULMONARY VALVE No pulmonary valve regurgitation or stenosis. VESSELS The inferior vena cava is normal in size. PERICARDIUM No pericardial effusion. Tae Hernández MD, FACC, FSCAI (Electronically Signed) Final Date:05 June 2017 11:53
[2017-06-05] MEDS: NYSTATIN 100,000 UNIT/GM CREAM 15 GM TOPICAL SCH ×2 (12:00→17:46)
--- NOTE | 2017-06-05 12:24 | RADRPT ---
EXAM DATE/TIME: 06/05/2017 11:50 [facility] COMPARISON: No previous studies available for comparison. INDICATIONS : Abnormal labs. MEDICAL HISTORY : Chronic obstructive pulmonary disease. Migraine. Arthritis. Diabetes. SURGICAL HISTORY : Tonsillectomy. Umbilical hernia repair. Orthopedic surgery, right hip, spine, right femur, left s houlder. ENCOUNTER: Initial ACUITY: 1 day PAIN SCORE: 0/10 LOCATION: Bilateral flank MEASUREMENTS: RIGHT KIDNEY: 11.5 x 5.8 x 5.2 cm LEFT KIDNEY: 12.0 x 7.4 x 5.6 cm FINDINGS: RIGHT KIDNEY: Renal cortex is normal in thickness and echotexture. No hydronephrosis, stone, or mass. LEFT KIDNEY: Renal cortex is normal in thickness and echotexture. No hydronephrosis, stone, or mass. BLADDER: Decompressed with Bruner catheter. CONCLUSION: No hydronephrosis Jakob Cartre MD on June 05, 2017 at 12:19 Board Certified Radiologist. This report was verified electronically.
[2017-06-05] MEDS: SODIUM BICARBONATE 8.4% INJ 75 MEQ in SODIUM CHLOR 0.45% 1000 ML INJ 1,000 ML IV SCH ×2 (12:38→23:20)
[2017-06-05] MEDS: PROPOFOL 1000 MG/100 ML INJ 100 ML IV PRN ×3 (12:39→20:27)
[2017-06-05] MEDS: methylPREDNISolone SOD SUCC 125 MG/2 ML VIAL IV PUSH SCH ×2 (12:39→17:47)
[2017-06-05 13:05] LABS: AMORPHOUS SEDIMENT, URINE RARE; BILIRUBIN, URINE NEG (NEG); BLOOD, URINE MOD (NEG); GLUCOSE,URINE 150 mg/dL (NEG); KETONE, URINE NEG (NEG); NITRITE,URINE NEG (NEG); SPERM, URINE FEW; SQUAMOUS EPITHELIAL CELL URINE <1 /hpf (0-5); URINE COLOR YELLOW (YELLW/STRAW); URINE LEUKOCYTE ESTERASE NEG (NEG)
[2017-06-05 13:07] LABS: CREATININE, RANDOM URINE 153.1 MG/DL
--- NOTE | 2017-06-05 14:40 | HHI.CCPN ---
Subjective Remarks/Hospital Course 06/04: 56 yo Male with PMH of COPD on 2L home O2, HTN, DM who presented to [facility] ED following asystolic cardiac arrest. states he was in bed most the day. She tried to get him to seek medical attention but he initially refused. She noted that he was having respiratory difficulties so she made preparations to call [facility]. She went into check on him again and he was unresponsive. He was in asystole when [facility] arrived. had not administered bystander CPR. He was intubated in the field and CPR was initiated. Reportedly ROSC was achieved after 9 minutes of CPR per [facility]. He was hypotensive and was started on dopamine per [facility] which was continued in the ED and is currently running at 20 mcg/kg/min. Glucose was 145. His GCS was 3 on arrival and he had anisocoria. However as per the paramedics the said he has history of unequal pupil and the left one being fixed and nonreactive (however she denied this when I inquired about it later that evening??) states he had PFT's Wed per Dr. Eli and has had cough ever since. Had not complained of chest pain but had been having headaches and R leg pain since Lortab was recently discontinued by his physician. 06/05: Remains sedated, orally intubated on mechanical ventilation. Was on neuromuscular blockade which is currently being discontinued. Urine output 10 cc overnight. Given fluid bolus now and renal ultrasound ordered. Objective Vital Signs Date Time Temp Pulse Resp B/P (MAP) Pulse Ox O2 Delivery O2 Flow Rate FiO2 06/05/17 12:28 80 122/84 (97) 06/05/17 11:52 99 45 06/05/17 11:00 96.6 06/05/17 06:00 20 06/04/17 18:44 Ventilator Intake and Output 06/05/17 06/05/17 06/06/17 08:00 16:00 00:00 Intake Total 986 ml Output Total 10 ml Balance 976 ml Result Diagram: 06/05/17 0302 06/05/17 0855 Other Results Microbiology Date/Time Source Procedure Growth Status 06/04/17 00:00 Nasal Washing Influenza Types A,B Antigen (ODETTE) - Final NEGATIVE FOR FLU A AND B ANTIGEN.... Complete Laboratory Tests Test 06/04/17 15:55 06/04/17 17:00 06/04/17 20:55 06/05/17 03:19 Blood Gas Puncture Site RT RADIAL RT RADIAL ART LINE ART LINE Blood Gas Patient Temperature 98.6 98.6 98.6 98.6 Blood Gas HCO3 24 mmol/L (22-26) 25 mmol/L (22-26) 25 mmol/L (22-26) 23 mmol/L (22-26) Blood Gas Base Excess -6.6 mmol/L (-2-2) -3.8 mmol/L (-2-2) -1.0 mmol/L (-2-2) -2.7 mmol/L (-2-2) Blood Gas Oxygen Saturation 96 % (90-100) 97 % (90-100) 98 % (90-100) 98 % ( 90-100) Arterial Blood pH 6.97 (7.380-7.420) 7.11 (7.380-7.420) 7.28 (7.380-7.420) 7.28 (7.380-7.420) Arterial Blood Partial Pressure CO2 113 mmHg (38-42) 83 mmHg (38-42) 55 mmHg (38-42) 50 mmHg (38-42) Arterial Blood Partial Pressure O2 250 mmHG (61-120) 407 mmHG (61-120) 478 mmHg (61-120) 223 mmHg (61-120) Arterial Blood Oxygen Content 19.3 Vol % (12.0-20.0) 20.4 Vol % (12.0-20.0) 22.1 Vol % (12.0-20.0) 19.4 Vol % (12.0-20.0) Arterial Blood Carboxyhemoglobin 1.1 % (0-4) 1.1 % (0-4) 0.3 % (0-4) 0.1 % (0-4) Arterial Blood Methemoglobin 1.1 % (0-2) 0.9 % (0-2) 1.4 % (0-2) 1.3 % (0-2) Blood Gas Hemoglobin 13.9 G/DL (12.0-16.0) 14.1 G/DL (12.0-16.0) 15.2 G/DL (12.0-16.0) 13.8 G/DL (12.0-16.0) Oxygen Delivery Device VENTILATOR VENTILATOR VENTILATOR VENT Blood Gas Ventilator Setting SEE COMMENTS SEE COMMENTS Blood Gas Inspired Oxygen 100 % 100 % 100 % 80 % Objective Remarks GENERAL: Obese male who is orotracheally intubated. He has not been on any sedatives. Unresponsive. SKIN: Centrally warm, peripherally cool with some mottling of his knees bilaterally HEAD: Atraumatic. Normocephalic. EYES: R pupil 4-5 mm and nonreactive, L pupil 8 mm and nonreactive. No scleral icterus. No injection or drainage. ENT: No nasal bleeding or discharge. Mucous membranes pale. NECK: Trachea midline. No JVD. CARDIOVASCULAR: Regular rate and rhythm, sinus rhythm on monitor. No murmurs rubs or gallops. RESPIRATORY: Orally intubated on mechanical ventilation, good air entry bilaterally, scattered rhonchi, no wheezing or crackles. GASTROINTESTINAL: Abdomen soft, non-tender, nondistended. Large L inguinal hernia, not incarcerated. : urinary catheter in place with no urine. U/s of bladder shows no distention. MUSCULOSKELETAL: Extremities without clubbing, cyanosis, or significant edema. NEUROLOGICAL: Sedated, orally intubated on neuromuscular blockade at the time of my evaluation this morning. 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 Dr. Gomez discussed with , will proceed with induced therapeutic hypothermia. Target temperature 36 degrees (sepsis) and then maintain normothermia post rewarming. Rewarm in 24 hours after reach target temperature. Hyperammonemia with level 52. Will avoid lactulose at this point due to metabolic derangements. Recheck ammonia level in a.m. Recent Wright Act for depression. Tylenol, salicylate negative. EtOH negative. Nimbex being stopped. Transitioning from Versed to propofol and titrate down on fentanyl as tolerated in view of worsening renal function in order to minimize longer acting sedatives. Hold gabapentin 300 daily RESP: Acute hypercapnic and hypoxemic respiratory failure Aspiration pneumonia Acute COPD exacerbation Obstructive sleep apnea Continue mechanical ventilation Status post Therapeutic and diagnostic bronchoscopy with removal of copious mucopurulent secretions by Dr. Gomez Ventilator bundle DuoNeb every 4 hours. Albuterol every 2 hours as needed Solu-Medrol 60 mg IV every 6 hours Antibiotics as per below PE seems less likely at this point as no RV strain noted on bedside Echo and likely arrest was related to severe respiratory acidosis and COPD. Creatinine elevated and he is anuric so would avoid proceeding with CTA at this time. CV: Asystolic cardiac arrest suspect secondary to severe COPD exacerbation with hypercapnia Mild troponin elevation secondary to Type II NSTEMI. We'll trend. Transitioned off dopamine to Levophed to maintain mean arterial pressure greater than 65 Had received 2 L normal saline in the emergency department. Had another episode of near-arrest in ED due to issue with dopamine drip programming when transitioned from EVAC dopamine drip, but I was at bedside at the time and bolused additional 1 L chilled NS bolus, bagged patient and resumed dopamine and BP improved. Art line placed with Rene Trac for hemodynamic monitoring. SVV elevated 24 and CI 2.8. Given additional 1 L LR bolus and SVV improved to 9-10 and CI 2.2 Lactic acidemia - secondary to cardiac arrest. We'll trend Essential hypertension Hold propranolol 20 mg by mouth twice a day due to current hypotension GI: Acute ischemic hepatitis OG tube to low intermittent wall suction. NPO while on paralytic Trend LFTs FEN/RENAL: Acute kidney injury Anuric despite optimization of hemodynamic parameters on Flotrac. Likely secondary to ischemic ATN Switched IV fluid to half and is with bicarbonate and 100 cc an hour. 1 L and S bolus ordered. Follow up UA, urine sodium and creatinine. Ordered renal ultrasound Monitor electrolytes every 6 hours during cooling. Replace as indicated. Hold Celebrex and other NSAIDs ID: Acute community acquired pneumonia versus aspiration pneumonia Severe sepsis Follow-up results of bronchial washing, blood culture. Unable to obtain urine therefor unable to obtain u/a or urine legionella or pneumococcal antigen. Influenza negative Zosyn 2.25 IV q6 hours, azithromycin 500 mg IV every 24 hours, vancomycin. Marilynn intertrigo bilateral groin nystatin topical HEME: Monitor CBC ENDO: Type II Diabetes mellitus Monitor bedside glucose every 6 hours and initiate low-dose insulin sliding scale as indicated PROPH: Heparin 5000 units subcutaneous every 12 hours for DVT prophylaxis. Famotidine for stress ulcer prophylaxis ACCESS: Left subclavian central venous line placed by ED physician 06/04. Right radial art line placed 06/04. Right femoral heat exchange catheter placed 06/04 Patient's is uncertain if he has a living will. She says she believes he may have written up a living will previously and that his sister may have it; she will investigate further. Patient is full code at this time. On 06/04 Dr. Gomez discussed with patient's that neurologic prognosis appears poor at this point however will follow neuro exam post-rewarming. Dr. Gomez also spoke with patient's sister Milagros and then his brother Abner Krueger on phone. Multiple questions answered. They are aware he is very critically ill with guarded neurologic prognosis and plan to come down from [place] this week. Dr. Gomez discussed with him that we will have limited information about his neurologic prognosis over the next several days as we complete rewarming process and subsequent sedation discontinuation. Critical care time 40 minutes exclusive of separately billable procedures. Jimy Pacheco MD Jun 05, 2017 14:40
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
[2017-06-05] MEDS ORDERED: FUROSEMIDE 40 MG/4 ML VIAL IV PUSH ONE (17:30)
[2017-06-05 17:37] LABS: BICARBONATE 25.2 MEQ/L (21.0-32.0); CALCIUM 7.5 MG/DL (8.5-10.1); CREATININE 4.22 MG/DL (0.60-1.30); MAGNESIUM 2.2 MG/DL (1.5-2.5)
[2017-06-05] MEDS: PIPERACIL-TAZO 2.25 GM PREMIX 50 ML IV SCH ×2 (18:16→23:20)
[2017-06-05] MEDS: FAMOTIDINE 20 MG TAB PO SCH (19:51)
[2017-06-05] MEDS: AZITHROMYCIN INJ 500 MG in SODIUM CHLOR 0.9% 250 ML INJ 250 ML IV SCH (19:52)
[2017-06-05] MEDS: LABETALOL HCL 100 MG/20 ML VIAL IV PUSH PRN (20:15)
--- NOTE | 2017-06-05 22:53 | EKG ---
Date Performed: 06/04/2017 Time Performed: 15:48:19 PTAGE: 56 years EKG: Sinus rhythm MODERATE T-WAVE ABNORMALITY ABNORMAL ECG Since the PREVIOUS TRACING , no significant change noted DOCTOR: Erik Sanchez Interpretating Date/Time 06/05/2017 22:51:56
[2017-06-05] MEDS: hydrALAZINE HCL 20 MG/ML VIAL IV PUSH PRN (23:08)
[2017-06-06] VITALS (32 sets, daily range): BP systolic 122–175; BP diastolic 67–101; PULSE 80–108; RESP 20–24; O2SAT 95–96
[2017-06-06] MEDS: NYSTATIN 100,000 UNIT/GM CREAM 15 GM TOPICAL SCH ×4 (00:13→18:04)
[2017-06-06] MEDS: methylPREDNISolone SOD SUCC 125 MG/2 ML VIAL IV PUSH SCH ×4 (00:13→18:04)
[2017-06-06] MEDS: PROPOFOL 1000 MG/100 ML INJ 100 ML IV PRN ×2 (00:22→04:29)
[2017-06-06] MEDS: LABETALOL HCL 100 MG/20 ML VIAL IV PUSH PRN ×4 (01:08→21:57)
[2017-06-06] MEDS: CHLORHEXIDINE GLUCONATE 2 % 1 PACK (2 CLOTHS) TOP SCH (03:02)
[2017-06-06] MEDS: INSULIN ASPART SUPPLEMENTAL SCALE SQ SCH ×4 (04:00→21:52)
[2017-06-06] MEDS: PIPERACIL-TAZO 2.25 GM PREMIX 50 ML IV SCH ×2 (04:33→12:31)
[2017-06-06] MEDS: RESP: ALBUTEROL 2.5 MG/3 ML NEB (PRN) INH (05:17)
[2017-06-06] MEDS: RESP: ACETYLCYSTEINE 20% 4 ML NEB NEB SCH ×3 (05:18→16:11)
[2017-06-06 06:47] LABS: BICARBONATE 25.4 MEQ/L (21.0-32.0); CALCIUM 7.5 MG/DL (8.5-10.1); CREATININE 5.14 MG/DL (0.60-1.30); MAGNESIUM 2.4 MG/DL (1.5-2.5); RANDOM VANCOMYCIN 20.3 COMMENT
[2017-06-06] MEDS: DOCUSATE SODIUM 50 MG/SENNA 8.6 MG TAB PO SCH ×2 (07:07→21:51)
[2017-06-06] MEDS: FAMOTIDINE 20 MG TAB PO SCH ×2 (07:07→21:51)
[2017-06-06] MEDS: SODIUM CHLORIDE 0.9% FLUSH 10 ML FLUSH IV FLUSH SCH ×2 (07:08→21:51)
[2017-06-06] MEDS: HEPARIN SODIUM - SQ 10,000 UNITS/ML VIAL SQ SCH ×2 (07:08→21:50)
[2017-06-06] MEDS: CHLORHEXIDINE 0.12% (ORAL KIT) 15 ML CUP MT SCH ×2 (07:09→20:00)
[2017-06-06] MEDS: SODIUM BICARBONATE 8.4% INJ 75 MEQ in SODIUM CHLOR 0.45% 1000 ML INJ 1,000 ML IV SCH (07:10)
[2017-06-06] MEDS: RESP: ALBUTEROL 2.5 MG/IPRATROPIUM 0.5 MG NEB (SCH) NEB ×4 (09:01→20:08)
[2017-06-06] MEDS ORDERED: FUROSEMIDE 40 MG/4 ML VIAL IV PUSH ONE (10:00)
--- NOTE | 2017-06-06 12:04 | HHI.NPPN ---
Subjective Renal Failure: Acute History of Present Illness Patient is a 56 yo Male with PMH of COPD on O2 dependent, HTN and DM. Presented to [facility] ED following asystolic cardiac arrest. Per records patient has had a cough for over a week and just not feeling well. Reportedly ROSC was achieved after 9 minutes of CPR per E VAC. Patient is intubated and sedated currently. On therapeutic cool therapy. Nephrology was consulted for acute kidney injury with a creatinine of 3.78. UOP approximately 10 ml overnight and 10 ml today. Patient has received a fluid bolus and is currently on a bicarb gtt. Patient does not have a past medical history of CKD. Additional Remarks Patient is sedated and intubated. Minimal UOP last night about 25 ml. (Leyla Tello) Review of Systems General General Remarks Unable to do ROS as patient is intubated (Leyla Tello) Objective Data Data Vital Signs Date Time Temp Pulse Resp B/P (MAP) Pulse Ox O2 Delivery O2 Flow Rate FiO2 06/06/17 11:00 98.2 103 160/97 (118) 96 170/90 (116) 06/06/17 10:00 97.3 91 148/97 (114) 95 158/87 (110) 06/06/17 09:12 96 45 06/06/17 09:00 97.0 101 159/95 (116) 95 168/88 (114) 06/06/17 08:12 100 168/88 (114) 154/95 (114) 06/06/17 08:00 96.6 100 154/95 (114) 96 167/88 (114) 06/06/17 08:00 100 06/06/17 08:00 45 06/06/17 07:00 96.6 95 150/92 (111) 95 161/85 (110) 06/06/17 06:00 96.4 97 20 151/91 (111) 95 161/85 (110) 06/06/17 06:00 97 06/06/17 05:18 95 45 06/06/17 05:00 96.6 92 20 149/88 (108) 95 154/81 (105) 06/06/17 04:00 97 06/06/17 04:00 45 06/06/17 04:00 96.8 97 20 149/92 (111) 96 155/89 (111) 06/06/17 04:00 97 155/89 (111) 149/92 (111) 06/06/17 03:00 96.8 93 21 144/90 (108) 95 150/86 (107) 06/06/17 02:00 96.8 89 21 145/84 (104) 95 144/83 (103) 06/06/17 02:00 89 06/06/17 01:55 96 45 06/06/17 01:00 96.8 104 23 157/90 (112) 95 159/89 (112) 06/06/17 00:00 96.8 101 24 143/86 (105) 95 148/82 (104) 06/06/17 00:00 101 148/82 (104) 143/86 (105) 06/06/17 00:00 101 06/06/17 00:00 45 06/05/17 23:00 96.8 89 24 160/98 (118) 98 165/98 (120) 06/05/17 22:39 100 45 06/05/17 22:00 90 06/05/17 22:00 96.8 90 20 158/93 (114) 99 165/94 (117) 06/05/17 21:00 97.0 79 20 114/75 (88) 100 122/76 (91) 06/05/17 20:00 45 06/05/17 20:00 98 176/94 (121) 169/94 (119) 06/05/17 20:00 96.8 98 20 169/94 (119) 98 176/94 (121) 06/05/17 20:00 98 06/05/17 19:00 96.8 94 20 163/94 (117) 97 171/91 (117) 06/05/17 18:00 95 06/05/17 18:00 96.8 95 174/92 (119) 99 173/93 (119) 06/05/17 17:00 96.8 90 152/87 (108) 99 147/91 (109) 06/05/17 16:05 93 144/102 (116) 06/05/17 16:00 90 06/05/17 16:00 45 06/05/17 16:00 96.8 90 173/89 (117) 99 143/101 (115) 06/05/17 15:10 100 45 06/05/17 15:00 96.8 88 153/91 (111) 99 134/95 (108) 06/05/17 14:00 81 06/05/17 14:00 96.8 81 146/75 (98) 96 139/92 (108) 06/05/17 13:00 96.8 77 143/89 (107) 100 147/95 (112) 06/05/17 12:28 80 122/84 (97) 06/05/17 12:20 96.8 80 147/82 (103) 100 108/88 (95) 06/05/17 12:00 45 06/05/17 12:00 96.6 80 143/80 (101) 96 149/94 (112) 06/05/17 12:00 80 149/94 (112) 143/80 (101) 06/05/17 12:00 80 (Leyla Tello) -: 06/05/17 0302 06/06/17 0425 Imaging Last Impressions Renal Ultrasound 06/05/17 0000 Signed Impressions: Service Date/Time: Monday, June 05, 2017 11:50 - CONCLUSION: No hydronephrosis Jakob Carter MD Head CT 06/04/17 1555 Signed Impressions: Service Date/Time: Sunday, June 04, 2017 16:42 - CONCLUSION: Normal examination. Ludin Woods MD Chest X-Ray 06/04/17 1555 Signed Impressions: Service Date/Time: Sunday, June 04, 2017 16:17 - CONCLUSION: 1. Patchy air space disease in the right lung especially the upper right lung. Differential diagnosis includes pneumonia and aspiration. Endotracheal tube and nasogastric tube in good position. Ludin Woods MD Tubes & Lines: [place] (Leyla Tello) Physical Exam General Appearance: No Acute Distress, Obese Appearance Remarks intubated (Leyla Tello) Throat Throat Exam: Oral Mucosa Coyle & Moist (Leyla Tello) Pulmonary Resp Exam: Breath Sounds Equal, No Distress (Leyla Tello) Cardiology CV Exam: Regular (Leyla Tello) Gastrointestinal/Abdomen GI Exam: Soft, Non-Tender, Distended (Leyla Tello) Genitourinary Remarks minimal uop (Leyla Tello) Integumentary Skin Exam: Clear, Warm, Dry (Leyla Tello) Extremeties Extremities Exam: Moderate Edema (Leyla Tello) Neurologic Neuro Exam: Sedated (Leyla Tello) Assessment/Plan Problem List: (1) Acute kidney injury ICD Codes: N17.9 - Acute kidney failure, unspecified Plan: Acute kidney injury with a creatinine of 3.78 most likely ATN from cardiopulmonary arrest. FeNA at 0.54 % suggestive of prerenal state but unlikely with significant rise in creatinine. Renal US with no acute findings UOP is minimal with approximately 25 ml overnight. Plan Continue IVF's Avoid nephrotoxins as possible Renal dose antibiotics Monitor I+O Will monitor UOP and BMP Lasix 80 mg given with no response in UOP yet. Plan for vas cath placement today and possible dialysis tomorrow if no improvement in UOP (2) Respiratory failure ICD Codes: J96.90 - Respiratory failure, unspecified, unspecified whether with hypoxia or hypercapnia Plan: sedated and intubated (3) Cardiorespiratory arrest ICD Codes: I46.9 - Cardiac arrest, cause unspecified Status: Acute (Leyla Tello) Problem List: (1) Acute kidney injury ICD Codes: N17.9 - Acute kidney failure, unspecified Plan: Acute kidney injury with a creatinine of 3.78 most likely ATN from cardiopulmonary arrest. FeNA at 0.54 % suggestive of prerenal state but unlikely with significant rise in creatinine. Renal US with no acute findings UOP is minimal with approximately 25 ml overnight. Plan Continue IVF's Avoid nephrotoxins as possible Renal dose antibiotics Monitor I+O Will monitor UOP and BMP Lasix 80 mg given with no response in UOP yet. Plan for vas cath placement today and possible dialysis tomorrow if no improvement in UOP. Patient seen and examined, agree with above. Possible HD if no improvement with Lasix. (2) Respiratory failure ICD Codes: J96.90 - Respiratory failure, unspecified, unspecified whether with hypoxia or hypercapnia Plan: sedated and intubated (3) Cardiorespiratory arrest ICD Codes: I46.9 - Cardiac arrest, cause unspecified Status: Acute (Jana Martin MD) Leyla Tello Jun 06, 2017 12:04 Jana Martin MD Jun 06, 2017 18:06
--- NOTE | 2017-06-06 12:34 | HHI.CCPN ---
Subjective Remarks/Hospital Course 06/04: 56 yo Male with PMH of COPD on 2L home O2, HTN, DM who presented to [facility] [place] [facility] ED following asystolic cardiac arrest. states he was in bed most the day. She tried to get him to seek medical attention but he initially refused. She noted that he was having respiratory difficulties so she made preparations to call [facility]. She went into check on him again and he was unresponsive. He was in asystole when [facility] arrived. had not administered bystander CPR. He was intubated in the field and CPR was initiated. Reportedly ROSC was achieved after 9 minutes of CPR per E [facility]. He was hypotensive and was started on dopamine per [facility] which was continued in the ED and is currently running at 20 mcg/kg/min. Glucose was 145. His GCS was 3 on arrival and he had anisocoria. However as per the paramedics the said he has history of unequal pupil and the left one being fixed and nonreactive (however she denied this when I inquired about it later that evening??) states he had PFT's Wed per Dr. Eli and has had cough ever since. Had not complained of chest pain but had been having headaches and R leg pain since Lortab was recently discontinued by his physician. 06/05: Remains sedated, orally intubated on mechanical ventilation. Was on neuromuscular blockade which is currently being discontinued. Urine output 10 cc overnight. Given fluid bolus now and renal ultrasound ordered. 06/06: Remains sedated, orally intubated on mechanical ventilation. On propofol for sedation. Off neuromuscular blockade since yesterday. Essentially anuric renal failure Objective Vital Signs Date Time Temp Pulse Resp B/P (MAP) Pulse Ox O2 Delivery O2 Flow Rate FiO2 06/06/17 12:18 96 40 06/06/17 11:00 98.2 103 160/97 (118) 170/90 (116) 06/06/17 06:00 20 06/04/17 18:44 Ventilator Intake and Output 06/06/17 06/06/17 06/07/17 08:00 16:00 00:00 Intake Total 1104 ml Output Total 25 ml Balance 1079 ml Result Diagram: 06/05/17 0302 06/06/17 0425 Other Results Microbiology Date/Time Source Procedure Growth Status 06/04/17 00:00 Nasal Washing Influenza Types A,B Antigen (ODETTE) - Final NEGATIVE FOR FLU A AND B ANTIGEN.... Complete Objective Remarks GENERAL: Obese male who is orotracheally intubated. He has not been on any sedatives. Unresponsive. SKIN: Centrally warm, peripherally cool with some mottling of his knees bilaterally HEAD: Atraumatic. Normocephalic. EYES: R pupil 4-5 mm and nonreactive, L pupil 8 mm and nonreactive. No scleral icterus. No injection or drainage. ENT: No nasal bleeding or discharge. Mucous membranes pale. NECK: Trachea midline. No JVD. CARDIOVASCULAR: Regular rate and rhythm, sinus rhythm on monitor. No murmurs rubs or gallops. RESPIRATORY: Orally intubated on mechanical ventilation, good air entry bilaterally, scattered rhonchi, no wheezing or crackles. GASTROINTESTINAL: Abdomen soft, non-tender, nondistended. Large L inguinal hernia, not incarcerated. : urinary catheter in place with no urine. U/s of bladder shows no distention. MUSCULOSKELETAL: Extremities without clubbing, cyanosis, or significant edema. NEUROLOGICAL: Sedated, orally intubated on neuromuscular blockade at the time of my evaluation this morning. 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 Dr. Gomez discussed with , status post induced therapeutic hypothermia. Target temperature 36 degrees (sepsis) and then maintain normothermia post rewarming. Stop Coumadin currently. We will attempt to keep normothermic Hyperammonemia with level 52. Will avoid lactulose at this point due to metabolic derangements. Recent Wright Act for depression. Tylenol, salicylate negative. EtOH negative. On propofol for sedation, daily sedation vacation. We will obtain EEG and neuro consult in view of suspected anoxic encephalopathy. Hold gabapentin 300 daily RESP: Acute hypercapnic and hypoxemic respiratory failure Aspiration pneumonia Acute COPD exacerbation Obstructive sleep apnea Continue mechanical ventilation Status post Therapeutic and diagnostic bronchoscopy with removal of copious mucopurulent secretions by Dr. Gomez Ventilator bundle DuoNeb every 4 hours. Albuterol every 2 hours as needed Solu-Medrol 60 mg IV every 6 hours Antibiotics as per below PE seems less likely at this point as no RV strain noted on bedside Echo and likely arrest was related to severe respiratory acidosis and COPD. Creatinine elevated and he is anuric so would avoid proceeding with CTA at this time. CV: Asystolic cardiac arrest suspect secondary to severe COPD exacerbation with hypercapnia Mild troponin elevation secondary to Type II NSTEMI. We'll trend. Transitioned off dopamine to Levophed to maintain mean arterial pressure greater than 65 Had received 2 L normal saline in the emergency department. Had another episode of near-arrest in ED due to issue with dopamine drip programming when transitioned from EVAC dopamine drip, but I was at bedside at the time and bolused additional 1 L chilled NS bolus, bagged patient and resumed dopamine and BP improved. Art line placed with Rene Trac for hemodynamic monitoring. Cardiac index 3, SVV 4 Lactic acidemia - secondary to cardiac arrest. Essential hypertension Resume propranolol 20 mg twice daily GI: Acute ischemic hepatitis OG tube to low intermittent wall suction. NPO while on paralytic Trend LFTs FEN/RENAL: Acute kidney injury Anuric despite optimization of hemodynamic parameters on Flotrac. Likely secondary to ischemic ATN Decreased IV fluid 1/2NS with bicarb to 50 cc/h as patient and anuric renal failure.Renal ultrasound with no hydronephrosis Monitor electrolytes every 6 hours during cooling. Replace as indicated. Hold Celebrex and other NSAIDs ID: Acute community acquired pneumonia versus aspiration pneumonia Severe sepsis Follow-up results of bronchial washing, blood culture. Unable to obtain urine therefore unable to obtain u/a or urine legionella or pneumococcal antigen. Influenza negative Zosyn 2.25 IV q6 hours, azithromycin 500 mg IV every 24 hours, vancomycin. Marilynn intertrigo bilateral groin nystatin topical HEME: Monitor CBC ENDO: Type II Diabetes mellitus Monitor bedside glucose every 6 hours and initiate low-dose insulin sliding scale as indicated PROPH: Heparin 5000 units subcutaneous every 12 hours for DVT prophylaxis. Famotidine for stress ulcer prophylaxis ACCESS: Left subclavian central venous line placed by ED physician 06/04. Right radial art line placed 06/04. Right femoral heat exchange catheter placed 06/04 Patient's is uncertain if he has a living will. She says she believes he may have written up a living will previously and that his sister may have it; she will investigate further. Patient is full code at this time. On 06/04 Dr. Gomez discussed with patient's that neurologic prognosis appears poor at this point however will follow neuro exam post-rewarming. Dr. Gomez also spoke with patient's sister Milagros and then his brother Abner Krueger on phone. Multiple questions answered. They are aware he is very critically ill with guarded neurologic prognosis and plan to come down from [place] this week. Dr. Gomez discussed with him that we will have limited information about his neurologic prognosis over the next several days as we complete rewarming process and subsequent sedation discontinuation. Critical care time 40 minutes exclusive of separately billable procedures. Jimy Pacheco MD Jun 06, 2017 12:34
[2017-06-06] MEDS: PROPRANOLOL HCL 20 MG TAB PO SCH ×2 (13:56→21:51)
[2017-06-06] MEDS: cefTRIAXone INJ 2,000 MG in SODIUM CHLORIDE 0.9% INJ 100 ML IV SCH (16:00)
--- NOTE | 2017-06-06 16:04 | HHI.PR ---
Addendum to Inpatient Note Additional Information Pt seen and examined full note to follow Bessie Hernández MD Jun 06, 2017 16:04
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
[2017-06-06] MEDS: AZITHROMYCIN INJ 500 MG in SODIUM CHLOR 0.9% 250 ML INJ 250 ML IV SCH (20:00)
[2017-06-07] VITALS (20 sets, daily range): BP systolic 105–168; BP diastolic 55–96; PULSE 72–91; RESP 17–18; TEMP 98; O2SAT 92–99
[2017-06-07] MEDS: INSULIN ASPART SUPPLEMENTAL SCALE SQ SCH ×4 (03:32→22:00)
[2017-06-07] MEDS: methylPREDNISolone SOD SUCC 125 MG/2 ML VIAL IV PUSH SCH ×4 (03:32→18:35)
[2017-06-07] MEDS: CHLORHEXIDINE GLUCONATE 2 % 1 PACK (2 CLOTHS) TOP SCH (03:33)
[2017-06-07] MEDS: SODIUM BICARBONATE 8.4% INJ 75 MEQ in SODIUM CHLOR 0.45% 1000 ML INJ 1,000 ML IV SCH (04:11)
[2017-06-07] MEDS: LABETALOL HCL 100 MG/20 ML VIAL IV PUSH PRN (05:47)
[2017-06-07] MEDS: NYSTATIN 100,000 UNIT/GM CREAM 15 GM TOPICAL SCH ×4 (06:02→18:34)
[2017-06-07 06:37] LABS: BICARBONATE 25.3 MEQ/L (21.0-32.0); CALCIUM 7.5 MG/DL (8.5-10.1); CREATININE 7.37 MG/DL (0.60-1.30); PHOSPHORUS 7.5 MG/DL (2.5-4.9); RANDOM VANCOMYCIN 17.7 COMMENT
[2017-06-07] MEDS: RESP: ALBUTEROL 2.5 MG/IPRATROPIUM 0.5 MG NEB (SCH) NEB ×4 (07:29→21:12)
[2017-06-07] MEDS ORDERED: HEPARIN SODIUM - IV 10,000 UNITS/10 ML VIAL ONE (09:09)
--- NOTE | 2017-06-07 10:19 | RADRPT ---
EXAM DATE/TIME: 06/07/2017 09:42 [facility] COMPARISON: CHEST SINGLE AP, June 04, 2017, 18:37. INDICATIONS : Central line placement. MEDICAL HISTORY : Chronic obstructive pulmonary disease. SURGICAL HISTORY : None. ENCOUNTER: Subsequent ACUITY: 3 days PAIN SCORE: Non-responsive. LOCATION: Bilateral chest FINDINGS: 2 AP supine portable views of the chest were obtained and demonstrate an endotracheal tube in place w ith the tip approximately 5 cm above the carlos alberto. The nasogastric tube remains in place. A left subcla vian central venous catheter is stable as well. There is been interval placement of a right internal jugular central venous line with the tip projected over the superior vena cava. There is no pneumotho rax. No confluent infiltrates or effusions are identified. The heart and mediastinal structures remai n within normal limits. CONCLUSION: 1. Interval placement of right internal jugular central venous line with no pneumothorax. 2. No acute cardiopulmonary disease. Sravan Alvarez MD on June 07, 2017 at 10:15 Board Certified Radiologist. This report was verified electronically.
[2017-06-07] MEDS: FAMOTIDINE 20 MG TAB PO SCH ×2 (10:29→20:49)
[2017-06-07] MEDS: DOCUSATE SODIUM 50 MG/SENNA 8.6 MG TAB PO SCH ×2 (10:30→20:49)
[2017-06-07] MEDS: HEPARIN SODIUM - SQ 10,000 UNITS/ML VIAL SQ SCH ×2 (10:30→20:49)
[2017-06-07] MEDS: PROPRANOLOL HCL 20 MG TAB PO SCH ×2 (10:31→20:49)
[2017-06-07] MEDS: SODIUM CHLORIDE 0.9% FLUSH 10 ML FLUSH IV FLUSH SCH ×2 (10:31→20:49)
[2017-06-07] MEDS: CHLORHEXIDINE 0.12% (ORAL KIT) 15 ML CUP MT SCH ×2 (10:32→20:50)
[2017-06-07] MEDS ORDERED: SODIUM CHLOR 0.9% 1000 ML INJ 1,000 ML OTHER PRN ×2 (10:46)
[2017-06-07] MEDS ORDERED: ACETAMINOPHEN 325 MG TAB PO PRN (11:00)
[2017-06-07] MEDS ORDERED: SODIUM CHLORIDE 0.9% FLUSH 10 ML FLUSH IV FLUSH PRN (11:00)
[2017-06-07] MEDS ORDERED: ONDANSETRON HCL 4 MG/2 ML VIAL IV PUSH PRN (11:00)
[2017-06-07] MEDS ORDERED: MANNITOL 12.5 GM/50 ML VIAL IV PRN (11:00)
[2017-06-07] MEDS ORDERED: diphenhydrAMINE HCL 25 MG CAP PO PRN (11:00)
[2017-06-07] MEDS ORDERED: NITROGLYCERIN 0.4 MG SL 25 TABS/BTL SL PRN (11:00)
[2017-06-07] MEDS ORDERED: GELATIN 12 MM/7 MM FOAM TOP PRN (11:00)
[2017-06-07] MEDS ORDERED: HEPARIN SODIUM - IV 10,000 UNITS/10 ML VIAL IV FLUSH PRN (11:00)
--- NOTE | 2017-06-07 11:33 | HHI.NPPN ---
Subjective Renal Failure: Acute History of Present Illness Patient is a 56 yo Male with PMH of COPD on O2 dependent, HTN and DM. Presented to [facility] ED following asystolic cardiac arrest. Per records patient has had a cough for over a week and just not feeling well. Reportedly ROSC was achieved after 9 minutes of CPR per E V[facility]. Patient is intubated and sedated currently. On therapeutic cool therapy. Nephrology was consulted for acute kidney injury with a creatinine of 3.78. UOP approximately 10 ml overnight and 10 ml today. Patient has received a fluid bolus and is currently on a bicarb gtt. Patient does not have a past medical history of CKD. Additional Remarks Patient is sedated and intubated. Minimal UOP continues. Vas cath placed. Dialysis planned for today. (Leyla Tello) Review of Systems General General Remarks Unable to do ROS as patient is intubated (Leyla Tello) Objective Data Data Vital Signs Date Time Temp Pulse Resp B/P (MAP) Pulse Ox O2 Delivery O2 Flow Rate FiO2 06/07/17 07:30 99 30 06/07/17 06:00 97.5 75 134/67 (89) 96 06/07/17 05:50 97.3 74 107/64 (78) 95 116/55 (75) 06/07/17 05:00 97.3 81 150/75 (100) 96 06/07/17 04:03 96 40 06/07/17 04:00 40 06/07/17 04:00 86 139/70 (93) 129/80 (96) 06/07/17 04:00 97.5 79 129/80 (96) 95 139/70 (93) 06/07/17 03:00 91 157/93 (114) 97 155/84 (107) 06/07/17 02:33 97.3 90 157/93 (114) 97 151/85 (107) 06/07/17 02:24 97.5 90 159/95 (116) 96 110/89 (96) 06/07/17 02:00 97.5 90 158/93 (114) 96 168/84 (112) 06/07/17 01:00 97.3 89 167/84 (111) 97 06/07/17 00:00 97.5 87 157/96 (116) 96 166/85 (112) 06/07/17 00:00 86 166/85 (112) 157/96 (116) 06/07/17 00:00 40 06/06/17 23:55 96 40 06/06/17 23:00 97.3 84 163/83 (109) 96 06/06/17 22:00 97.3 80 122/76 (91) 95 134/67 (89) 06/06/17 21:00 97.5 90 173/91 (118) 96 06/06/17 20:05 96 40 06/06/17 20:00 86 170/90 (116) 163/101 (121) 06/06/17 20:00 97.5 86 163/101 (121) 95 170/90 (116) 06/06/17 20:00 40 06/06/17 19:00 97.5 90 174/94 (120) 96 06/06/17 18:00 97.5 88 170/93 (118) 95 06/06/17 18:00 88 06/06/17 17:00 97.9 89 166/101 (122) 96 168/93 (118) 06/06/17 16:11 96 40 06/06/17 16:00 100.6 95 163/97 (119) 96 170/89 (116) 06/06/17 16:00 95 06/06/17 16:00 95 170/89 (116) 163/97 (119) 06/06/17 16:00 40 06/06/17 15:00 100.0 100 168/100 (122) 96 175/91 (119) 06/06/17 14:00 99.5 108 158/95 (116) 95 175/89 (117) 06/06/17 14:00 108 06/06/17 13:00 99.3 103 152/94 (113) 95 167/86 (113) 06/06/17 12:18 96 40 06/06/17 12:00 40 06/06/17 12:00 99 163/86 (111) 149/91 (110) 06/06/17 12:00 99 06/06/17 12:00 99.1 99 149/91 (110) 96 163/86 (111) (Leyla Tello) -: 06/05/17 0302 06/07/17 0530 Tubes & Lines: Vas-Cath, Bruner (Leyla Tello. SERVICES ACCOUNT MANAGER) Physical Exam General Appearance: No Acute Distress, Obese Appearance Remarks intubated (Leyla TelloP) Throat Throat Exam: Oral Mucosa [place] & Moist (Leyla Tello. SERVICES ACCOUNT MANAGER) Pulmonary Resp Exam: Breath Sounds Equal, No Distress (Leyla Tello SERVICES ACCOUNT MANAGER) Cardiology CV Exam: Regular (Leyla Tello SERVICES ACCOUNT MANAGER) Gastrointestinal/Abdomen GI Exam: Soft, Non-Tender, Distended (Leyla Tello. SERVICES ACCOUNT MANAGER) Genitourinary Remarks minimal uop (Leyla TelloP) Integumentary Skin Exam: Clear, Warm, Dry (Leyla Tello SERVICES ACCOUNT MANAGER) Extremeties Extremities Exam: Moderate Edema (Leyla Tello SERVICES ACCOUNT MANAGER) Neurologic Neuro Exam: Sedated (Leyla TelloP) Assessment/Plan Problem List: (1) Acute kidney injury ICD Codes: N17.9 - Acute kidney failure, unspecified Plan: Acute kidney injury with a creatinine of 3.78 most likely ATN from cardiopulmonary arrest. FeNA at 0.54 % suggestive of prerenal state but unlikely with significant rise in creatinine. Renal US with no acute findings UOP is minimal with approximately 40 ml overnight. Plan PO4 elevated Phoslo added. Avoid nephrotoxins as possible Renal dose antibiotics Continue to monitor UOP and BMP Vas cath placed. Plan for HD today. (2) Respiratory failure ICD Codes: J96.90 - Respiratory failure, unspecified, unspecified whether with hypoxia or hypercapnia Plan: sedated and intubated (3) Cardiorespiratory arrest ICD Codes: I46.9 - Cardiac arrest, cause unspecified Status: Acute (Leyla TelloP) Problem List: (1) Acute kidney injury ICD Codes: N17.9 - Acute kidney failure, unspecified Plan: Acute kidney injury with a creatinine of 3.78 most likely ATN from cardiopulmonary arrest. FeNA at 0.54 % suggestive of prerenal state but unlikely with significant rise in creatinine. Renal US with no acute findings UOP is minimal with approximately 40 ml overnight. Plan PO4 elevated Phoslo added. Avoid nephrotoxins as possible Renal dose antibiotics Continue to monitor UOP and BMP Vas cath placed. Plan for HD today. Patient seen and examined, agree with above. D/W sisters at bed side. (2) Respiratory failure ICD Codes: J96.90 - Respiratory failure, unspecified, unspecified whether with hypoxia or hypercapnia Plan: sedated and intubated (3) Cardiorespiratory arrest ICD Codes: I46.9 - Cardiac arrest, cause unspecified Status: Acute (Jana Martin MD) Leyla Tello Jun 07, 2017 11:33 Jana Martin MD Jun 07, 2017 18:25
[2017-06-07] MEDS: GENTAMICIN SULFATE 20 MG/2 ML VIAL OTHER PRN (14:03)
[2017-06-07] MEDS: CALCIUM ACETATE 667 MG CAP PO SCH ×2 (14:43→18:34)
--- NOTE | 2017-06-07 15:18 | PD.CONS ---
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 Patients goals of care as best understood from advance directives and/or conversations and/or values * Current medical treatment options and benefits/burdens of those options * Likely scenarios comparing ongoing aggressive care with a transition to comfort measures only * Questions answered to the best of my ability * Palliative care contact information provided Assessment and Plan Disease Oriented Problem List: (1) Septic shock (2) Cardiorespiratory arrest (3) Respiratory failure Comment: pneumonia (4) Acute kidney injury (5) Encephalopathy Symptom Scale: Pertinent Non-Medical Issues Psychosocial:Lives with . On disablility. No children Spiritual:[employer]ism Legal: Per , she had confirmed with his sister, pt has no advance directives. Ethical issues impacting care:none. Important Contacts Edith Silva [phone] Prognosis patient has a history of COPD, chronic pain that was found by to be unresponsive. [facility] found patient to be in asystole, where CPR was initiated and patient intubated. Is most likely that there was pneumonia along with COPD that triggered patient's cardiopulmonary arrest. Patient's condition is complicated by worsening renal failure, and possible anoxic encephalopathy. Prognosis is poor overall. Plan ==capaicty- no capacity to make medical decsion. == health care decision maker. No advance directives per pt's . Under [place] [employer], health care proxy is . == symptom- dyspnea- currently intubated, no new med recommendation. == goals of care:I called patient's Edith Silva. She endorsed that patient never did completed a living well or any other advanced directives. I reviewed patient's current clinical conditions, and the worry about anoxic encephalopathy. She states that neither she nor her would want to be on life support long-term. If patient does not make any neurological improvement, states she would not want to prolong his suffering. Patient has several sister that is coming down and they have been informed of his critical condition. There are not ready to withdraw care yet, like to see if there are any improvements. However they will be open to transition to comfort measures and withdrawal of life support if there has not been any significant improvement in clinical condition in the coming days. == code: In terms of CODE STATUS, she wanted convene with pt's sister, but she states she is leaning towards no CPR or resuscitation. I have called pt's Edith Silva at 6:23 pm regarding code status. Only got a busy signal, could not leave a voicemail. I have informed her before, she can let the medical team know about the change in code status over the weekend. Thank you for the opportunity to participate in the care of Mr. Silva. Attestation To help prompt me to consider important information that might be impacting today's encounter and assessment, information from prior notes written by myself or my colleagues may have been "brought forward" into today's note. My signature on this note, however, is an attestation that I personally performed the exam, history, and/or decision-making noted today, and, unless otherwise indicated, the interactions with patient, family, and staff as well as the review of records all occurred today. I also attest that the listed assessment and stated plan reflect my best clinical judgment today based on the combination of historical information, prior notes, and today's exam/ interactions. When time spent is documented, it refers only to time spent today by the signer, or if indicated, combined time spent today by collaborating physician/nurse practitioner. Pio Henderson MD Jun 07, 2017 15:18
[2017-06-07] MEDS: cefTRIAXone INJ 2,000 MG in SODIUM CHLORIDE 0.9% INJ 100 ML IV SCH (16:02)
--- NOTE | 2017-06-07 17:42 | HHI.CCPN ---
Subjective Remarks/Hospital Course 06/04: 56 yo Male with PMH of COPD on 2L home O2, HTN, DM who presented to [facility] following asystolic cardiac arrest. states he was in bed most the day. She tried to get him to seek medical attention but he initially refused. She noted that he was having respiratory difficulties so she made preparations to call [facility]. She went into check on him again and he was unresponsive. He was in asystole when [facility] arrived. had not administered bystander CPR. He was intubated in the field and CPR was initiated. Reportedly ROSC was achieved after 9 minutes of CPR per [facility]. He was hypotensive and was started on dopamine per EVAC which was continued in the ED and is currently running at 20 mcg/kg/min. Glucose was 145. His GCS was 3 on arrival and he had anisocoria. However as per the paramedics the said he has history of unequal pupil and the left one being fixed and nonreactive (however she denied this when I inquired about it later that evening??) states he had PFT's Wed per Dr. Eli and has had cough ever since. Had not complained of chest pain but had been having headaches and R leg pain since Lortab was recently discontinued by his physician. 06/05: Remains sedated, orally intubated on mechanical ventilation. Was on neuromuscular blockade which is currently being discontinued. Urine output 10 cc overnight. Given fluid bolus now and renal ultrasound ordered. 06/06: Remains sedated, orally intubated on mechanical ventilation. On propofol for sedation. Off neuromuscular blockade since yesterday. Essentially anuric renal failure. 06/07: Off sedation for more than 24 hours, remains comatose, orally intubated on mechanical ventilation. Vas-Cath placed and started hemodialysis today. Objective Vital Signs Date Time Temp Pulse Resp B/P (MAP) Pulse Ox O2 Delivery O2 Flow Rate FiO2 06/07/17 15:44 96 30 06/07/17 06:00 97.5 75 134/67 (89) 06/06/17 06:00 20 06/04/17 18:44 Ventilator Intake and Output 06/07/17 06/07/17 06/08/17 08:00 16:00 00:00 Intake Total 1237 ml Output Total 15 ml 500 ml Balance 1222 ml -500 ml Result Diagram: 06/05/17 0302 06/07/17 0530 Other Results Microbiology Date/Time Source Procedure Growth Status 06/04/17 19:15 Bronchial Washings Right Mid Lobe Gram Stain - Final Complete 06/04/17 19:15 Bronchial Culture - Final Haemophilus Influenzae Complete 06/05/17 10:30 Urine Catheterized Urine Urine Culture - Final NO GROWTH IN 48 HOURS. Complete Objective Remarks GENERAL: Obese male who is orotracheally intubated. He has not been on any sedatives. Unresponsive. SKIN: Centrally warm, peripherally cool with some mottling of his knees bilaterally HEAD: Atraumatic. Normocephalic. EYES: R pupil 4-5 mm and nonreactive, L pupil 8 mm and nonreactive. No scleral icterus. No injection or drainage. ENT: No nasal bleeding or discharge. Mucous membranes pale. NECK: Trachea midline. No JVD. CARDIOVASCULAR: Regular rate and rhythm, sinus rhythm on monitor. No murmurs rubs or gallops. RESPIRATORY: Orally intubated on mechanical ventilation, good air entry bilaterally, scattered rhonchi, no wheezing or crackles. GASTROINTESTINAL: Abdomen soft, non-tender, nondistended. Large L inguinal hernia, not incarcerated. : urinary catheter in place with no urine. U/s of bladder shows no distention. MUSCULOSKELETAL: Extremities without clubbing, cyanosis, or significant edema. NEUROLOGICAL: Comatose, orally intubated. 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 Dr. Gomez discussed with , status post induced therapeutic hypothermia. Target temperature 36 degrees (sepsis) and then maintain normothermia post rewarming. Stop Coumadin currently. We will attempt to keep normothermic Hyperammonemia with level 52. Will avoid lactulose at this point due to metabolic derangements. Recent Wright Act for depression. Tylenol, salicylate negative. EtOH negative. Off propofol. Remains comatose. Neurology consulted in view of severe anoxic encephalopathy. Hold gabapentin 300 daily RESP: Acute hypercapnic and hypoxemic respiratory failure Aspiration pneumonia Acute COPD exacerbation Obstructive sleep apnea Continue mechanical ventilation Status post Therapeutic and diagnostic bronchoscopy with removal of copious mucopurulent secretions by Dr. Gomez Ventilator bundle DuoNeb every 4 hours. Albuterol every 2 hours as needed Solu-Medrol 60 mg IV every 6 hours Antibiotics as per below CV: Asystolic cardiac arrest suspect secondary to severe COPD exacerbation with hypercapnia Mild troponin elevation secondary to Type II NSTEMI. We'll trend. Art line placed with Rene Trac for hemodynamic monitoring. Cardiac index 3, SVV 4 Lactic acidemia - secondary to cardiac arrest. Essential hypertension Resumed propranolol 20 mg twice daily GI: Acute ischemic hepatitis Started tube feeds Trend LFTs FEN/RENAL: Acute kidney injury Anuric despite optimization of hemodynamic parameters on Flotrac. Likely secondary to ischemic ATN Decreased IV fluid 1/2NS with bicarb to 50 cc/h as patient and anuric renal failure.Renal ultrasound with no hydronephrosis Monitor electrolytes every 6 hours during cooling. Replace as indicated. Hold Celebrex and other NSAIDs Nephrology consulted. Starting hemodialysis 06/07. Vas-Cath placed in right IJ ID: Acute community acquired pneumonia versus aspiration pneumonia Severe sepsis Follow-up results of bronchial washing, blood culture. Unable to obtain urine therefore unable to obtain u/a or urine legionella or pneumococcal antigen. Influenza negative Antibiotics per ID. Growing Haemophilus influenza and sputum. Marilynn intertrigo bilateral groin nystatin topical HEME: Monitor CBC ENDO: Type II Diabetes mellitus Monitor bedside glucose every 6 hours and initiate low-dose insulin sliding scale as indicated PROPH: Heparin 5000 units subcutaneous every 12 hours for DVT prophylaxis. Famotidine for stress ulcer prophylaxis ACCESS: Left subclavian central venous line placed by ED physician 06/04. Right radial art line placed 06/04. Right femoral heat exchange catheter placed 06/04 Patient's is uncertain if he has a living will. She says she believes he may have written up a living will previously and that his sister may have it; she will investigate further. Patient is full code at this time. On 06/04 Dr. Gomez discussed with patient's that neurologic prognosis appears poor at this point however will follow neuro exam post-rewarming. Dr. Gomez also spoke with patient's sister Milagros and then his brother Abner Krueger on phone. Multiple questions answered. They are aware he is very critically ill with guarded neurologic prognosis and plan to come down from [place] this week. Dr. Gomez discussed with him that we will have limited information about his neurologic prognosis over the next several days as we complete rewarming process and subsequent sedation discontinuation. Consult palliative care to assist with deciding goals of therapy. Critical care time 40 minutes exclusive of separately billable procedures. Jimy Pacheco MD Jun 07, 2017 17:42
--- NOTE | 2017-06-07 17:59 | PD.PROCEDR ---
Procedure Note Procedure Preop diagnosis: Cardiac arrest status post CPR, acute respiratory failure, anoxic encephalopathy, acute renal failure next Postop diagnosis: Informed consent: Obtained from family and document on chart. Anesthesia: 1% lidocaine for local anesthesia Procedure: Dialysis catheter placement Site: Right IJ Ultrasound guidance : yes After sterile prepping and draping using 1% lidocaine for local infiltration anesthesia, [] internal jugular vein was visualized using an ultrasound was finder and under direct visualization was cannulated using an introducer needle with dark nonpulsatile blood return. A Guidewire was passed through the introducer needle without any resistance and the needle was then removed. After making a skin neck and dilation of tract, a [] cm dual lumen dialysis catheter was passed over the guidewire by modified seldinger's technique into the right internal jugular vein up to the 18 cm thompson and the guidewire was then removed. Good blood return obtained through both ports which were then flushed with saline and subsequently hep-locked. After suturing the catheter in place, a Bio- occlusive dressing with biopatch was applied to the site. Post procedure chest x -ray was ordered and reviewed with good placement of RIJ dialysis catheter with tip overlying SVC, no pneumothorax on postprocedure film. Patient tolerated the procedure well with no immediate complications noted. Jimy Pacheco MD Jun 07, 2017 17:59
[2017-06-07] MEDS: AZITHROMYCIN INJ 500 MG in SODIUM CHLOR 0.9% 250 ML INJ 250 ML IV SCH (20:49)
[2017-06-08] VITALS (24 sets, daily range): BP systolic 91–171; BP diastolic 59–103; PULSE 73–96; RESP 18–20; O2SAT 92–97
[2017-06-08] MEDS: methylPREDNISolone SOD SUCC 125 MG/2 ML VIAL IV PUSH SCH ×4 (00:18→18:02)
[2017-06-08] MEDS: NYSTATIN 100,000 UNIT/GM CREAM 15 GM TOPICAL SCH ×4 (00:18→18:02)
[2017-06-08] MEDS: LABETALOL HCL 100 MG/20 ML VIAL IV PUSH PRN ×2 (02:39→06:06)
[2017-06-08] MEDS: CHLORHEXIDINE GLUCONATE 2 % 1 PACK (2 CLOTHS) TOP SCH (02:39)
[2017-06-08] MEDS: INSULIN ASPART SUPPLEMENTAL SCALE SQ SCH ×4 (04:45→22:12)
[2017-06-08] MEDS: hydrALAZINE HCL 20 MG/ML VIAL IV PUSH PRN (06:17)
[2017-06-08] MEDS: RESP: ALBUTEROL 2.5 MG/IPRATROPIUM 0.5 MG NEB (SCH) NEB ×3 (08:38→16:06)
[2017-06-08] MEDS: FAMOTIDINE 20 MG TAB PO SCH ×2 (08:53→19:44)
[2017-06-08] MEDS: HEPARIN SODIUM - SQ 10,000 UNITS/ML VIAL SQ SCH ×2 (08:53→19:44)
[2017-06-08] MEDS: SODIUM CHLORIDE 0.9% FLUSH 10 ML FLUSH IV FLUSH PRN (08:53)
[2017-06-08] MEDS: CALCIUM ACETATE 667 MG CAP PO SCH ×3 (08:53→18:02)
[2017-06-08] MEDS: SODIUM CHLORIDE 0.9% FLUSH 10 ML FLUSH IV FLUSH SCH ×2 (08:53→19:44)
[2017-06-08] MEDS: CHLORHEXIDINE 0.12% (ORAL KIT) 15 ML CUP MT SCH ×2 (08:53→19:45)
[2017-06-08] MEDS: DOCUSATE SODIUM 50 MG/SENNA 8.6 MG TAB PO SCH ×2 (08:54→19:43)
[2017-06-08] MEDS: PROPRANOLOL HCL 20 MG TAB PO SCH ×2 (08:54→21:00)
[2017-06-08 09:30] LABS: AUTOMATED NEUTROPHIL # 15.9 TH/MM3 (1.8-7.7); BASOPHIL % 0.2 % (0.0-2.0); HEMATOCRIT 42.6 % (39.0-51.0); HEMOGLOBIN 14.2 GM/DL (13.0-17.0); LYMPH % 4.4 % (9.0-44.0); LYMPHOCYTE # 0.8 TH/MM3 (1.0-4.8); MEAN CELL VOLUME 89.7 FL (80.0-100.0); MEAN CORPUSCULAR HGB CONC 33.4 % (32.0-36.0); MEAN PLATELET VOLUME 7.9 FL (7.0-11.0); MONO % 3.9 % (0.0-8.0); MONOCYTE # 0.7 TH/MM3 (0-0.9); NEUT % 91.5 % (16.0-70.0); PLATELET COUNT 275 TH/MM3 (150-450); RED BLOOD COUNT 4.75 MIL/MM3 (4.50-5.90); RED CELL DISTRIBUTION WIDTH 13.8 % (11.6-17.2); WHITE BLOOD COUNT 17.4 TH/MM3 (4.0-11.0)
[2017-06-08 10:22] LABS: ALBUMIN 2.1 GM/DL (3.4-5.0); ALKALINE PHOSPHATASE 88 U/L (45-117); ALT (GPT) 155 U/L (12-78); AST (GOT) 71 U/L (15-37); BICARBONATE 24.9 MEQ/L (21.0-32.0); BLOOD UREA NITROGEN 124 MG/DL (7-18); CALCIUM 8.2 MG/DL (8.5-10.1); CHLORIDE 104 MEQ/L (98-107); CREATININE 7.49 MG/DL (0.60-1.30); GLOMERULAR FILTRATION RATE 8 ML/MIN (>89); GLUCOSE,RANDOM 204 MG/DL (74-106); PHOSPHORUS 6.3 MG/DL (2.5-4.9); SODIUM (NA) 143 MEQ/L (136-145); TOTAL BILIRUBIN ADULT 0.4 MG/DL (0.2-1.0); TOTAL PROTEIN 6.4 GM/DL (6.4-8.2)
[2017-06-08 10:25] LABS: BANDS 3 % (0-6); LYMPHOCYTES 4 % (9-44); METAMYELOCYTES 3 % (0-1); MONOCYTES 1 % (0-8); NEUTROPHIL # MANUAL DIFF 16.5 TH/MM3 (1.8-7.7); POLYS (SEG NEUTROPHILS) 89 % (16-70)
--- NOTE | 2017-06-08 13:55 | HHI.NPPN ---
Subjective Renal Failure: Acute History of Present Illness Patient is a 56 yo Male with PMH of COPD on O2 dependent, HTN and DM. Presented to [facility] following asystolic cardiac arrest. Per records patient has had a cough for over a week and just not feeling well. Reportedly ROSC was achieved after 9 minutes of CPR per [facility]. Patient is intubated and sedated currently. On therapeutic cool therapy. Nephrology was consulted for acute kidney injury with a creatinine of 3.78. UOP approximately 10 ml overnight and 10 ml today. Patient has received a fluid bolus and is currently on a bicarb gtt. Patient does not have a past medical history of CKD. Additional Remarks Patient remain intubated and unresponsive, off sedation now, urine out put is minimal. Review of Systems General General Remarks Unable to do ROS as patient is intubated Objective Data Data Vital Signs Date Time Temp Pulse Resp B/P (MAP) Pulse Ox O2 Delivery O2 Flow Rate FiO2 06/08/17 12:00 85 163/88 (113) 166/96 (119) 06/08/17 12:00 30 06/08/17 12:00 95.4 85 166/96 (119) 95 163/88 (113) 06/08/17 12:00 85 06/08/17 11:43 95 30 06/08/17 11:00 95.7 89 167/90 (115) 95 06/08/17 10:00 96.3 92 170/92 (118) 95 06/08/17 10:00 92 06/08/17 09:00 96.8 92 162/88 (112) 95 06/08/17 08:39 94 30 06/08/17 08:00 30 06/08/17 08:00 90 06/08/17 08:00 90 153/87 (109) 171/96 (121) 06/08/17 08:00 97.0 90 171/96 (121) 92 153/87 (109) 06/08/17 07:00 97.0 85 145/76 (99) 93 06/08/17 06:00 84 06/08/17 05:27 93 30 06/08/17 04:00 97.0 77 18 171/98 (122) 92 115/94 (101) 06/08/17 04:00 77 06/08/17 04:00 30 06/08/17 04:00 77 153/89 (110) 171/98 (122) 06/08/17 02:00 77 06/08/17 01:53 97 30 06/08/17 00:00 30 06/08/17 00:00 73 06/08/17 00:00 97.2 73 18 134/81 (98) 96 115/93 (100) 06/08/17 00:00 73 115/93 (100) 134/81 (98) 06/07/17 22:00 72 06/07/17 21:16 98 30 06/07/17 20:00 97.2 79 18 119/73 (88) 99 134/76 (95) 06/07/17 20:00 30 06/07/17 20:00 79 134/76 (95) 119/73 (88) 06/07/17 20:00 79 06/07/17 16:00 40 06/07/17 16:00 86 118/68 (85) 105/67 (80) 06/07/17 15:44 96 30 -: 06/08/17 0845 06/08/17 0845 Tubes & Lines: Vas-Cath, Bruner Physical Exam General Appearance: No Acute Distress, Obese Throat Throat Exam: Oral Mucosa [place] & Moist Pulmonary Resp Exam: Breath Sounds Equal, No Distress Cardiology CV Exam: Regular Gastrointestinal/Abdomen GI Exam: Soft, Non-Tender, Distended Integumentary Skin Exam: Clear, Warm, Dry Extremeties Extremities Exam: Moderate Edema Neurologic Neuro Exam: Sedated Assessment/Plan Problem List: (1) Acute kidney injury ICD Codes: N17.9 - Acute kidney failure, unspecified Plan: Acute kidney injury with a creatinine of 3.78 most likely ATN from cardiopulmonary arrest. FeNA at 0.54 % suggestive of prerenal state but unlikely with significant rise in creatinine. Renal US with no acute findings UOP is minimal with approximately 40 ml overnight. Plan PO4 elevated Phoslo added. Avoid nephrotoxins as possible Renal dose antibiotics Continue to monitor UOP and BMP Started on HD 06/07, now getting another HD session. Urine out put is minimal. BP is stable, remove fluid as tolerated. (2) Respiratory failure ICD Codes: J96.90 - Respiratory failure, unspecified, unspecified whether with hypoxia or hypercapnia Plan: sedated and intubated (3) Cardiorespiratory arrest ICD Codes: I46.9 - Cardiac arrest, cause unspecified Status: Acute Jana Martin MD Jun 08, 2017 13:55
[2017-06-08] MEDS: GENTAMICIN SULFATE 20 MG/2 ML VIAL OTHER PRN (14:37)
[2017-06-08] MEDS: HEPARIN SODIUM - IV 10,000 UNITS/10 ML VIAL PRN (14:38)
--- NOTE | 2017-06-08 15:12 | HHI.CCPN ---
Subjective Remarks/Hospital Course 06/04: 56 yo Male with PMH of COPD on 2L home O2, HTN, DM who presented to [facility] following asystolic cardiac arrest. states he was in bed most the day. She tried to get him to seek medical attention but he initially refused. She noted that he was having respiratory difficulties so she made preparations to call [facility]. She went into check on him again and he was unresponsive. He was in asystole when [facility] arrived. had not administered bystander CPR. He was intubated in the field and CPR was initiated. Reportedly ROSC was achieved after 9 minutes of CPR per [facility]. He was hypotensive and was started on dopamine per [facility] which was continued in the ED and is currently running at 20 mcg/kg/min. Glucose was 145. His GCS was 3 on arrival and he had anisocoria. However as per the paramedics the said he has history of unequal pupil and the left one being fixed and nonreactive (however she denied this when I inquired about it later that evening??) states he had PFT's Wed per Dr. Eli and has had cough ever since. Had not complained of chest pain but had been having headaches and R leg pain since Lortab was recently discontinued by his physician. 06/05: Remains sedated, orally intubated on mechanical ventilation. Was on neuromuscular blockade which is currently being discontinued. Urine output 10 cc overnight. Given fluid bolus now and renal ultrasound ordered. 06/06: Remains sedated, orally intubated on mechanical ventilation. On propofol for sedation. Off neuromuscular blockade since yesterday. Essentially anuric renal failure. 06/07: Off sedation for more than 24 hours, remains comatose, orally intubated on mechanical ventilation. Vas-Cath placed and started hemodialysis today. 06/08: Remains comatose off sedation, orally intubated on mechanical ventilation. Objective Vital Signs Date Time Temp Pulse Resp B/P (MAP) Pulse Ox O2 Delivery O2 Flow Rate FiO2 06/08/17 14:00 86 06/08/17 12:00 163/88 (113) 166/96 (119) 06/08/17 12:00 30 06/08/17 12:00 95.4 95 06/08/17 04:00 18 06/04/17 18:44 Ventilator Intake and Output 06/08/17 06/08/17 06/09/17 08:00 16:00 00:00 Output Total 120 ml Balance -120 ml Result Diagram: 06/08/1745 06/08/1745 Objective Remarks GENERAL: Obese male who is orotracheally intubated. He has not been on any sedatives. Unresponsive. SKIN: Centrally warm, peripherally cool with some mottling of his knees bilaterally HEAD: Atraumatic. Normocephalic. EYES: R pupil 4-5 mm and nonreactive, L pupil 8 mm and nonreactive. No scleral icterus. No injection or drainage. ENT: No nasal bleeding or discharge. Mucous membranes pale. NECK: Trachea midline. No JVD. CARDIOVASCULAR: Regular rate and rhythm, sinus rhythm on monitor. No murmurs rubs or gallops. RESPIRATORY: Orally intubated on mechanical ventilation, good air entry bilaterally, scattered rhonchi, no wheezing or crackles. GASTROINTESTINAL: Abdomen soft, non-tender, nondistended. Large L inguinal hernia, not incarcerated. : urinary catheter in place with no urine. U/s of bladder shows no distention. MUSCULOSKELETAL: Extremities without clubbing, cyanosis, or significant edema. NEUROLOGICAL: Comatose, orally intubated. 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 Stop Coumadin currently. We will attempt to keep normothermic Hyperammonemia with level 52. Will avoid lactulose at this point due to metabolic derangements. Recent Wright Act for depression. Tylenol, salicylate negative. EtOH negative. Off propofol. Remains comatose. Suspect severe anoxic encephalopathy Hold gabapentin 300 daily RESP: Acute hypercapnic and hypoxemic respiratory failure Aspiration pneumonia Acute COPD exacerbation Obstructive sleep apnea Continue mechanical ventilation Status post Therapeutic and diagnostic bronchoscopy with removal of copious mucopurulent secretions by Dr. Gomez Ventilator bundle DuoNeb every 4 hours. Albuterol every 2 hours as needed Solu-Medrol 60 mg IV every 6 hours Antibiotics as per below CV: Asystolic cardiac arrest suspect secondary to severe COPD exacerbation with hypercapnia Mild troponin elevation secondary to Type II NSTEMI. We'll trend. Art line placed with Rene Trac for hemodynamic monitoring. Cardiac index 3, SVV 4 Lactic acidemia - secondary to cardiac arrest. Essential hypertension Resumed propranolol 20 mg twice daily GI: Acute ischemic hepatitis Start tube feeds Trend LFTs FEN/RENAL: Acute kidney injury Anuric despite optimization of hemodynamic parameters on Flotrac. Likely secondary to ischemic ATN Renal ultrasound with no hydronephrosis Monitor electrolytes every 6 hours during cooling. Replace as indicated. Hold Celebrex and other NSAIDs Nephrology consulted. Starting hemodialysis 06/07. Vas-Cath placed in right IJ ID: Acute community acquired pneumonia versus aspiration pneumonia Severe sepsis Follow-up results of bronchial washing, blood culture. Unable to obtain urine therefore unable to obtain u/a or urine legionella or pneumococcal antigen. Influenza negative Antibiotics per ID. Growing Haemophilus influenza and sputum. Marilynn intertrigo bilateral groin nystatin topical HEME: Monitor CBC ENDO: Type II Diabetes mellitus Monitor bedside glucose every 6 hours and initiate low-dose insulin sliding scale as indicated PROPH: Heparin 5000 units subcutaneous every 12 hours for DVT prophylaxis. Famotidine for stress ulcer prophylaxis ACCESS: Left subclavian central venous line placed by ED physician 06/04. Right radial art line placed 06/04. Right femoral heat exchange catheter placed 06/04 Patient's is uncertain if he has a living will. She says she believes he may have written up a living will previously and that his sister may have it; she will investigate further. Patient is full code at this time. On 06/04 Dr. Gomez discussed with patient's that neurologic prognosis appears poor at this point however will follow neuro exam post-rewarming. Dr. Gomez also spoke with patient's sister Milagros and then his brother Abner Krueger on phone. Multiple questions answered. They are aware he is very critically ill with guarded neurologic prognosis and plan to come down from [place] this week. Dr. Gomez discussed with him that we will have limited information about his neurologic prognosis over the next several days as we complete rewarming process and subsequent sedation discontinuation. Consult palliative care to assist with deciding goals of therapy. Critical care time 40 minutes exclusive of separately billable procedures. Jimy Pacheco MD Jun 08, 2017 15:12
[2017-06-08] MEDS: cefTRIAXone INJ 2,000 MG in SODIUM CHLORIDE 0.9% INJ 100 ML IV SCH (15:57)
--- NOTE | 2017-06-08 16:21 | HHI.PR ---
Addendum to Inpatient Note Additional Information pt seen around 2 pm full note to follow Bessie Hernández MD Jun 08, 2017 16:21
[2017-06-08] MEDS: AZITHROMYCIN INJ 500 MG in SODIUM CHLOR 0.9% 250 ML INJ 250 ML IV SCH (19:43)
--- NOTE | 2017-06-08 23:48 | HHI.IDPN ---
Subjective Subjective Remarks delayed entry pt is comatous Unresponsive remains on vent Hypothermic Antibiotics azithro zosyn Allergies: Coded Allergies: quetiapine (Unverified Adverse Reaction, Severe, Agitation, 06/04/17) Objective . Vital Signs Date Time Temp Pulse Resp B/P (MAP) Pulse Ox O2 Delivery O2 Flow Rate FiO2 06/08/17 22:00 78 06/08/17 20:09 95 30 06/08/17 20:00 84 06/08/17 20:00 30 06/08/17 20:00 84 91/62 (72) 112/76 (88) 06/08/17 20:00 94.6 84 20 112/76 (88) 95 104/59 (74) 06/08/17 18:00 89 06/08/17 18:00 95.2 89 117/66 (83) 95 06/08/17 17:00 95.4 92 124/68 (86) 96 06/08/17 16:06 95 30 06/08/17 16:00 96 06/08/17 16:00 30 06/08/17 16:00 95.9 96 140/103 (115) 94 130/76 (94) 06/08/17 16:00 96 130/76 (94) 140/103 (115) 06/08/17 15:00 95.7 92 129/80 (96) 95 06/08/17 14:00 95.2 86 136/82 (100) 94 06/08/17 14:00 86 06/08/17 13:00 95.0 84 159/85 (109) 95 06/08/17 12:00 85 163/88 (113) 166/96 (119) 06/08/17 12:00 30 06/08/17 12:00 95.4 85 166/96 (119) 95 163/88 (113) 06/08/17 12:00 85 06/08/17 11:43 95 30 06/08/17 11:00 95.7 89 167/90 (115) 95 06/08/17 10:00 96.3 92 170/92 (118) 95 06/08/17 10:00 92 06/08/17 09:00 96.8 92 162/88 (112) 95 06/08/17 08:39 94 30 06/08/17 08:00 30 06/08/17 08:00 90 06/08/17 08:00 90 153/87 (109) 171/96 (121) 06/08/17 08:00 97.0 90 171/96 (121) 92 153/87 (109) 06/08/17 07:00 97.0 85 145/76 (99) 93 06/08/17 06:00 84 06/08/17 05:27 93 30 06/08/17 04:00 97.0 77 18 171/98 (122) 92 115/94 (101) 06/08/17 04:00 77 06/08/17 04:00 30 06/08/17 04:00 77 153/89 (110) 171/98 (122) 06/08/17 02:00 77 06/08/17 01:53 97 30 06/08/17 00:00 30 06/08/17 00:00 73 06/08/17 00:00 97.2 73 18 134/81 (98) 96 115/93 (100) 06/08/17 00:00 73 115/93 (100) 134/81 (98) 06/08/17 06/08/17 06/09/17 15:00 23:00 07:00 Intake Total 160 ml Output Total 2010.0 ml Balance -1850.0 ml Intake IV Total 100 ml Other 60 ml Output Urine Total 10 ml Tube Feeding Residual Discard 0 ml Hemodialysis 2000 ml # Bowel Movements 1 . Laboratory Tests Test 06/08/17 08:45 White Blood Count 17.4 TH/MM3 Red Blood Count 4.75 MIL/MM3 Hemoglobin 14.2 GM/DL Hematocrit 42.6 % Mean Corpuscular Volume 89.7 FL Mean Corpuscular Hemoglobin 30.0 PG Mean Corpuscular Hemoglobin Concent 33.4 % Red Cell Distribution Width 13.8 % Platelet Count 275 TH/MM3 Mean Platelet Volume 7.9 FL Neutrophils (%) (Auto) 91.5 % Lymphocytes (%) (Auto) 4.4 % Monocytes (%) (Auto) 3.9 % Eosinophils (%) (Auto) 0.0 % Basophils (%) (Auto) 0.2 % Neutrophils # (Auto) 15.9 TH/MM3 Lymphocytes # (Auto) 0.8 TH/MM3 Monocytes # (Auto) 0.7 TH/MM3 Eosinophils # (Auto) 0.0 TH/MM3 Basophils # (Auto) 0.0 TH/MM3 CBC Comment AUTO DIFF Differential Total Cells Counted 100 Neutrophils % (Manual) 89 % Band Neutrophils % 3 % Lymphocytes % 4 % Monocytes % 1 % Neutrophils # (Manual) 16.5 TH/MM3 Metamyelocytes 3 % Differential Comment FINAL DIFF MANUAL Platelet Estimate NORMAL Platelet Morphology Comment NORMAL Red Cell Morphology Comment NORMAL Laboratory Tests Test 06/07/17 05:30 06/08/17 08:45 Blood Urea Nitrogen 119 MG/DL 124 MG/DL Creatinine 7.37 MG/DL 7.49 MG/DL Random Glucose 183 MG/DL 204 MG/DL Calcium Level 7.5 MG/DL 8.2 MG/DL Phosphorus Level 7.5 MG/DL 6.3 MG/DL Sodium Level 143 MEQ/L 143 MEQ/L Potassium Level 3.8 MEQ/L 3.9 MEQ/L Chloride Level 103 MEQ/L 104 MEQ/L Carbon Dioxide Level 25.3 MEQ/L 24.9 MEQ/L Anion Gap 15 MEQ/L 14 MEQ/L Estimat Glomerular Filtration Rate 8 ML/MIN 8 ML/MIN Total Protein 6.4 GM/DL Albumin 2.1 GM/DL Magnesium Level 3.0 MG/DL Alkaline Phosphatase 88 U/L Aspartate Amino Transf (AST/SGOT) 71 U/L Alanine Aminotransferase (ALT/SGPT) 155 U/L Total Bilirubin 0.4 MG/DL Imaging Last Impressions Chest X-Ray 06/07/17 0000 Signed Impressions: Service Date/Time: Wednesday, June 07, 2017 09:42 - CONCLUSION: 1. Interval placement of right internal jugular central venous line with no pneumothorax. 2. No acute cardiopulmonary disease. Sravan Alvarez MD Renal Ultrasound 06/05/17 0000 Signed Impressions: Service Date/Time: Monday, June 05, 2017 11:50 - CONCLUSION: No hydronephrosis Jakob Carter MD Head CT 06/04/17 1555 Signed Impressions: Service Date/Time: Sunday, June 04, 2017 16:42 - CONCLUSION: Normal examination. Ludin Woods MD Physical Exam CONSTITUTIONAL/GENERAL: This is an adequately nourished patient, in no apparent distress. Sedated, intubated, on vent TUBES/LINES/DRAINS: SKIN: No jaundice, rashes, or lesions. Skin temperature appropriate. Not diaphoretic. CARDIOVASCULAR: Regular rate and rhythm without murmurs, gallops, or rubs. No JVD. Peripheral pulses symmetric. RESPIRATORY/CHEST: Symmetric, unlabored respirations. Rhonchi to auscultation. Breath sounds equal bilaterally. GASTROINTESTINAL: Abdomen soft, non-tender, nondistended. No hepato-splenomegaly , or palpable masses. No guarding. Bowel sounds present. GENITOURINARY: Without palpable bladder distension. Bruner catheter in place. MUSCULOSKELETAL: Extremities without clubbing, cyanosis, + 2 edema. No joint tenderness or effusion noted. No calf tenderness. No mottling or clubbing. LYMPHATICS: No palpable cervical or supraclavicular adenopathy. NEUROLOGICAL: unresponsive PSYCHIATRIC: unable to assess Assessment & Plan Remarks MARIELLE H.flu Acute VDRF Anoxic encephlopathy cont CFTX rechk blood, sputum clx will broaden abx Bessie Hernández MD Jun 08, 2017 23:48
[2017-06-09] VITALS (23 sets, daily range): BP systolic 105–169; BP diastolic 54–93; PULSE 75–115; RESP 20; O2SAT 92–95
[2017-06-09] MEDS: methylPREDNISolone SOD SUCC 125 MG/2 ML VIAL IV PUSH SCH ×4 (00:22→17:45)
[2017-06-09] MEDS: NYSTATIN 100,000 UNIT/GM CREAM 15 GM TOPICAL SCH ×4 (00:23→17:45)
[2017-06-09] MEDS: INSULIN ASPART SUPPLEMENTAL SCALE SQ SCH ×4 (03:48→20:53)
[2017-06-09] MEDS: SODIUM CHLOR 0.9% 1000 ML INJ 1,000 ML IV SCH ×2 (03:49→03:50)
[2017-06-09] MEDS: CHLORHEXIDINE GLUCONATE 2 % 1 PACK (2 CLOTHS) TOP SCH (03:50)
[2017-06-09 04:49] LABS: AUTOMATED NEUTROPHIL # 18.1 TH/MM3 (1.8-7.7); BASOPHIL # 0.1 TH/MM3 (0-0.2); BASOPHIL % 0.4 % (0.0-2.0); HEMATOCRIT 41.7 % (39.0-51.0); LYMPH % 3.1 % (9.0-44.0); LYMPHOCYTE # 0.6 TH/MM3 (1.0-4.8); MEAN CELL VOLUME 90.1 FL (80.0-100.0); MEAN CORPUSCULAR HEMOGLOBIN 30.4 PG (27.0-34.0); MEAN CORPUSCULAR HGB CONC 33.7 % (32.0-36.0); MEAN PLATELET VOLUME 8.2 FL (7.0-11.0); MONO % 4.5 % (0.0-8.0); MONOCYTE # 0.9 TH/MM3 (0-0.9); PLATELET COUNT 247 TH/MM3 (150-450); RED BLOOD COUNT 4.62 MIL/MM3 (4.50-5.90); WHITE BLOOD COUNT 19.7 TH/MM3 (4.0-11.0)
[2017-06-09 05:17] LABS: ALKALINE PHOSPHATASE 79 U/L (45-117); ALT (GPT) 103 U/L (12-78); AST (GOT) 45 U/L (15-37); BLOOD UREA NITROGEN 107 MG/DL (7-18); CALCIUM 8.5 MG/DL (8.5-10.1); CHLORIDE 101 MEQ/L (98-107); CREATININE 6.88 MG/DL (0.60-1.30); GLOMERULAR FILTRATION RATE 8 ML/MIN (>89); GLUCOSE,RANDOM 294 MG/DL (74-106); SODIUM (NA) 140 MEQ/L (136-145); TOTAL BILIRUBIN ADULT 0.5 MG/DL (0.2-1.0); TOTAL PROTEIN 6.1 GM/DL (6.4-8.2)
[2017-06-09 06:00] LABS: BANDS 1 % (0-6); LYMPHOCYTES 5 % (9-44); METAMYELOCYTES 1 % (0-1); MONOCYTES 3 % (0-8); NEUTROPHIL # MANUAL DIFF 18.1 TH/MM3 (1.8-7.7); POLYS (SEG NEUTROPHILS) 90 % (16-70)
[2017-06-09] MEDS: PROPRANOLOL HCL 20 MG TAB PO SCH ×2 (08:11→20:52)
[2017-06-09] MEDS: SODIUM CHLORIDE 0.9% FLUSH 10 ML FLUSH IV FLUSH PRN (08:11)
[2017-06-09] MEDS: FAMOTIDINE 20 MG TAB PO SCH ×2 (08:11→20:52)
[2017-06-09] MEDS: CHLORHEXIDINE 0.12% (ORAL KIT) 15 ML CUP MT SCH ×2 (08:11→20:51)
[2017-06-09] MEDS: SODIUM CHLORIDE 0.9% FLUSH 10 ML FLUSH IV FLUSH SCH ×2 (08:11→20:52)
[2017-06-09] MEDS: HEPARIN SODIUM - SQ 10,000 UNITS/ML VIAL SQ SCH ×2 (08:12→20:52)
[2017-06-09] MEDS: DOCUSATE SODIUM 50 MG/SENNA 8.6 MG TAB PO SCH ×2 (08:12→20:52)
[2017-06-09] MEDS: CALCIUM ACETATE 667 MG CAP PO SCH ×3 (08:12→17:45)
--- NOTE | 2017-06-09 10:28 | HHI.CCPN ---
Subjective Remarks/Hospital Course 06/04: 56 yo Male with PMH of COPD on 2L home O2, HTN, DM who presented to [facility] ED following asystolic cardiac arrest. states he was in bed most the day. She tried to get him to seek medical attention but he initially refused. She noted that he was having respiratory difficulties so she made preparations to call [facility]. She went into check on him again and he was unresponsive. He was in asystole when [facility] arrived. had not administered bystander CPR. He was intubated in the field and CPR was initiated. Reportedly ROSC was achieved after 9 minutes of CPR per [facility]. He was hypotensive and was started on dopamine per [facility] which was continued in the ED and is currently running at 20 mcg/kg/min. Glucose was 145. His GCS was 3 on arrival and he had anisocoria. However as per the paramedics the said he has history of unequal pupil and the left one being fixed and nonreactive (however she denied this when I inquired about it later that evening??) states he had PFT's Wed per Dr. Eli and has had cough ever since. Had not complained of chest pain but had been having headaches and R leg pain since Lortab was recently discontinued by his physician. 06/05: Remains sedated, orally intubated on mechanical ventilation. Was on neuromuscular blockade which is currently being discontinued. Urine output 10 cc overnight. Given fluid bolus now and renal ultrasound ordered. 06/06: Remains sedated, orally intubated on mechanical ventilation. On propofol for sedation. Off neuromuscular blockade since yesterday. Essentially anuric renal failure. 06/07: Off sedation for more than 24 hours, remains comatose, orally intubated on mechanical ventilation. Vas-Cath placed and started hemodialysis today. 06/08: Remains comatose off sedation, orally intubated on mechanical ventilation. 06/09: Remains comatose off sedation, orally intubated on mechanical ventilation. Awaiting EEG this morning. Tube feeds held this morning for high residuals. Dialyzed yesterday. Objective Vital Signs Date Time Temp Pulse Resp B/P (MAP) Pulse Ox O2 Delivery O2 Flow Rate FiO2 06/09/17 09:00 98.8 114 158/89 (112) 92 157/77 (103) 06/09/17 08:00 35 06/09/17 04:00 20 Intake and Output 06/09/17 06/09/17 06/09/17 07:59 15:59 23:59 Intake Total 4820 ml Output Total 10 ml 0 ml Balance 4810 ml 0 ml Result Diagram: 06/09/1742906/09/17429 Objective Remarks GENERAL: Obese male who is orotracheally intubated. He has not been on any sedatives. Unresponsive. SKIN: Centrally warm, peripherally cool with some mottling of his knees bilaterally HEAD: Atraumatic. Normocephalic. EYES: R pupil 4-5 mm and nonreactive, L pupil 8 mm and nonreactive. No scleral icterus. No injection or drainage. ENT: No nasal bleeding or discharge. Mucous membranes pale. NECK: Trachea midline. No JVD. CARDIOVASCULAR: Regular rate and rhythm, sinus rhythm on monitor. No murmurs rubs or gallops. RESPIRATORY: Orally intubated on mechanical ventilation, good air entry bilaterally, scattered rhonchi, no wheezing or crackles. GASTROINTESTINAL: Abdomen soft, non-tender, nondistended. Large L inguinal hernia, not incarcerated. : urinary catheter in place MUSCULOSKELETAL: Extremities without clubbing, cyanosis, or significant edema. NEUROLOGICAL: Comatose, orally intubated. 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 We will attempt to keep normothermic Hyperammonemia with level 52. Will avoid lactulose at this point due to metabolic derangements. Recent Wright Act for depression. Tylenol, salicylate negative. EtOH negative. Off propofol. Remains comatose. Suspect severe anoxic encephalopathy. Repeat EEG. Hold gabapentin 300 daily RESP: Acute hypercapnic and hypoxemic respiratory failure Aspiration pneumonia Acute COPD exacerbation Obstructive sleep apnea Continue mechanical ventilation Status post Therapeutic and diagnostic bronchoscopy with removal of copious mucopurulent secretions by Dr. Gomez Ventilator bundle DuoNeb every 4 hours. Albuterol every 2 hours as needed Solu-Medrol 60 mg IV every 6 hours Antibiotics as per below CV: Asystolic cardiac arrest suspect secondary to severe COPD exacerbation with hypercapnia Mild troponin elevation secondary to Type II NSTEMI. We'll trend. Art line placed with Rene Trac for hemodynamic monitoring. Cardiac index 3, SVV 4 Lactic acidemia - secondary to cardiac arrest. Essential hypertension Resumed propranolol 20 mg twice daily GI: Acute ischemic hepatitis Start tube feeds Trend LFTs FEN/RENAL: Acute kidney injury Anuric despite optimization of hemodynamic parameters on Flotrac. Likely secondary to ischemic ATN Renal ultrasound with no hydronephrosis Monitor electrolytes every 6 hours during cooling. Replace as indicated. Hold Celebrex and other NSAIDs Nephrology consulted. Starting hemodialysis 06/07. Vas-Cath placed in right IJ ID: Acute community acquired pneumonia versus aspiration pneumonia Severe sepsis Follow-up results of bronchial washing, blood culture. Unable to obtain urine therefore unable to obtain u/a or urine legionella or pneumococcal antigen. Influenza negative Antibiotics per ID. Growing Haemophilus influenza and sputum. Marilynn intertrigo bilateral groin nystatin topical HEME: Monitor CBC ENDO: Type II Diabetes mellitus Monitor bedside glucose every 6 hours and initiate low-dose insulin sliding scale as indicated PROPH: Heparin 5000 units subcutaneous every 12 hours for DVT prophylaxis. Famotidine for stress ulcer prophylaxis ACCESS: Left subclavian central venous line placed by ED physician 06/04. Right radial art line placed 06/04. Right femoral heat exchange catheter placed 06/04, removed 06/08 Patient's is uncertain if he has a living will. She says she believes he may have written up a living will previously and that his sister may have it; she will investigate further. Patient is full code at this time. On 06/04 Dr. Gomez discussed with patient's that neurologic prognosis appears poor at this point. Dr. Gomez also spoke with patient's sister Milagros and then his brother Abner Krueger on phone. Multiple questions answered. They are aware he is very critically ill with guarded neurologic prognosis and plan to come down from [place] this week. Dr. Gomez discussed with him that we will have limited information about his neurologic prognosis over the next several days as we complete rewarming process and subsequent sedation discontinuation. Consulted palliative care to assist with deciding goals of therapy. Critical care time 40 minutes exclusive of separately billable procedures. Jimy Pacheco MD Jun 09, 2017 10:28
[2017-06-09] MEDS: cefTRIAXone INJ 2,000 MG in SODIUM CHLORIDE 0.9% INJ 100 ML IV SCH (15:51)
--- NOTE | 2017-06-09 16:47 | HHI.NPPN ---
Subjective Renal Failure: Acute History of Present Illness Patient is a 56 yo Male with PMH of COPD on O2 dependent, HTN and DM. Presented to [facility] following asystolic cardiac arrest. Per records patient has had a cough for over a week and just not feeling well. Reportedly ROSC was achieved after 9 minutes of CPR per [facility]. Patient is intubated and sedated currently. On therapeutic cool therapy. Nephrology was consulted for acute kidney injury with a creatinine of 3.78. UOP approximately 10 ml overnight and 10 ml today. Patient has received a fluid bolus and is currently on a bicarb gtt. Patient does not have a past medical history of CKD. Additional Remarks Patient remain intubated and unresponsive, off sedation now, urine out put is minimal, clinically same. Review of Systems General General Remarks Unable to do ROS as patient is intubated Objective Data Data 06/09/17 06/10/17 19:00 07:00 Output Total 0 ml Balance 0 ml Tube Feeding Residual Discard 0 ml Vital Signs Date Time Temp Pulse Resp B/P (MAP) Pulse Ox O2 Delivery O2 Flow Rate FiO2 06/09/17 16:00 92 114/72 (86) 127/75 (92) 06/09/17 16:00 92 06/09/17 16:00 96.8 92 127/75 (92) 94 114/72 (86) 06/09/17 16:00 35 06/09/17 15:00 97.3 93 132/80 (97) 94 119/74 (89) 06/09/17 14:58 94 35 06/09/17 14:00 97.5 97 134/75 (94) 94 119/74 (89) 06/09/17 14:00 97 06/09/17 13:00 97.7 100 135/76 (95) 94 119/74 (89) 06/09/17 12:00 102 06/09/17 12:00 102 121/79 (93) 138/81 (100) 06/09/17 12:00 35 06/09/17 12:00 98.1 102 138/81 (100) 94 121/79 (93) 06/09/17 11:13 93 35 06/09/17 11:00 98.4 107 146/84 (104) 94 145/71 (95) 06/09/17 10:00 98.6 110 155/88 (110) 92 151/75 (100) 06/09/17 10:00 110 06/09/17 09:00 98.8 114 158/89 (112) 92 157/77 (103) 06/09/17 08:00 35 06/09/17 08:00 115 06/09/17 08:00 115 167/82 (110) 169/93 (118) 06/09/17 08:00 99.0 115 169/93 (118) 92 167/82 (110) 06/09/17 07:00 98.6 115 159/89 (112) 92 155/77 (103) 06/09/17 06:00 115 06/09/17 04:00 35 06/09/17 04:00 97 06/09/17 04:00 96.3 97 20 137/80 (99) 95 135/69 (91) 06/09/17 04:00 97 135/69 (91) 137/80 (99) 06/09/17 03:56 92 35 06/09/17 02:00 81 06/09/17 00:10 94 30 06/09/17 00:00 75 105/54 (71) 107/66 (80) 06/09/17 00:00 78 06/09/17 00:00 30 06/09/17 00:00 75 107/66 (80) 95 105/54 (71) 06/08/17 22:00 78 06/08/17 20:09 95 30 06/08/17 20:00 84 06/08/17 20:00 30 06/08/17 20:00 84 91/62 (72) 112/76 (88) 06/08/17 20:00 94.6 84 20 112/76 (88) 95 104/59 (74) 06/08/17 18:00 89 06/08/17 18:00 95.2 89 117/66 (83) 95 06/08/17 17:00 95.4 92 124/68 (86) 96 -: 06/09/17 0430 06/09/17 0430 Tubes & Lines: Vas-Cath, Bruner Physical Exam General Appearance: No Acute Distress, Obese Throat Throat Exam: Oral Mucosa Sidell & Moist Pulmonary Resp Exam: Breath Sounds Equal, No Distress Cardiology CV Exam: Regular Gastrointestinal/Abdomen GI Exam: Soft, Non-Tender, Distended Integumentary Skin Exam: Clear, Warm, Dry Extremeties Extremities Exam: Moderate Edema Neurologic Neuro Exam: Sedated Assessment/Plan Problem List: (1) Acute kidney injury ICD Codes: N17.9 - Acute kidney failure, unspecified Plan: Acute kidney injury with a creatinine of 3.78 most likely ATN from cardiopulmonary arrest. FeNA at 0.54 % suggestive of prerenal state but unlikely with significant rise in creatinine. Renal US with no acute findings UOP is minimal with approximately 40 ml overnight. Plan PO4 elevated Phoslo added. Avoid nephrotoxins as possible Renal dose antibiotics Continue to monitor UOP and BMP Started on HD 06/07, was again done yesterday. Urine out put is minimal. BP is stable, remove fluid as tolerated. Work up for neurological brain damage in progress. HD again in AM as BUN is elevated. (2) Respiratory failure ICD Codes: J96.90 - Respiratory failure, unspecified, unspecified whether with hypoxia or hypercapnia Plan: sedated and intubated (3) Cardiorespiratory arrest ICD Codes: I46.9 - Cardiac arrest, cause unspecified Status: Acute Jana Martin MD Jun 09, 2017 16:46
--- NOTE | 2017-06-09 19:33 | MG ---
cc: Alfredo Anaya MD, PhD TEST NUMBER: [id number] TECHNIQUE: A 17-channel EEG. DESCRIPTION: Background rhythm reveals no significant electroencephalographic activity. There are no epileptiform discharges. With photic stimulation, there is some minor driving response, but this is very minimal. INTERPRETATION: Severely abnormal study consistent with severe anoxic injury. Alfredo Anaya MD, PhD SIGIFREDO/SB , 07:22 PM , 07:32 PM
--- NOTE | 2017-06-09 19:47 | MB ---
cc: Alfredo Anaya MD, PhD DATE: 06/09/2017 REASON FOR CONSULTATION: Anoxic encephalopathy. HISTORY OF PRESENT ILLNESS: Mr. Silva is a 56-year-old man, came to the ER following asystolic cardiac arrest. He was found unresponsive by his . [facility] arrived, was in asystole. His did administer CPR, intubated in the field. He is hypotensive. He has been nonresponsive since. NEUROLOGIC EXAMINATION: VITAL SIGNS: Blood pressure is 115/71, pulse is 86, respiratory rate, no spontaneous breathing, temperature 96.8 degrees. HIGHER CORTICAL FUNCTION: Nonresponsive. CRANIAL NERVES: The pupils are fixed at 4 mm, symmetric, nonreactive. He has no extraocular movements to doll's eyes maneuver. Corneal reflexes are absent. Gag is absent. MOTOR: No posturing, no spontaneous limb movements, no withdrawal. DIAGNOSTIC DATA: CT brain is normal. EEG shows no significant electrical activity except with photic stimulation, there is only a minimal response. LABORATORY DATA: The white count is 19,700, hemoglobin 14, hematocrit 41.7%, platelet count 247,000. Sodium is 140, potassium 3.6, chloride 101, CO2 is 23. The BUN is 107, creatinine 6.88, GFR is 8, calcium 8.5, AST 45, ALT 103. Tox screen positive for opiates, benzodiazepines. IMPRESSION: Severe anoxic encephalopathy. RECOMMENDATIONS: Recommend cerebral perfusion study to assess for possible brain . Alfredo Anaya MD, PhD SIGIFREDO/R[place] , 07:35 PM , 07:46 PM
[2017-06-09] MEDS: NOREPINEPHRINE INJ 4 MG in SODIUM CHLOR 0.9% 250 ML INJ 246 ML IV PRN ×2 (20:51→22:18)
[2017-06-09] MEDS: AZITHROMYCIN INJ 500 MG in SODIUM CHLOR 0.9% 250 ML INJ 250 ML IV SCH (20:53)
[2017-06-10] VITALS (48 sets, daily range): BP systolic 73–193; BP diastolic 58–114; PULSE 74–98; RESP 20–26; TEMP 97.3–98.4; O2SAT 93–100
[2017-06-10] MEDS: methylPREDNISolone SOD SUCC 125 MG/2 ML VIAL IV PUSH SCH ×4 (01:45→18:22)
[2017-06-10] MEDS: INSULIN ASPART SUPPLEMENTAL SCALE SQ SCH ×4 (04:37→21:56)
[2017-06-10] MEDS: NYSTATIN 100,000 UNIT/GM CREAM 15 GM TOPICAL SCH ×4 (04:38→18:18)
[2017-06-10] MEDS: CHLORHEXIDINE GLUCONATE 2 % 1 PACK (2 CLOTHS) TOP SCH (04:38)
[2017-06-10] MEDS: INSULIN DETEMIR 100 UNITS/ML VIAL SQ SCH ×2 (09:00→20:19)
[2017-06-10] MEDS: CALCIUM ACETATE 667 MG CAP PO SCH ×3 (09:00→18:18)
[2017-06-10] MEDS: DOCUSATE SODIUM 50 MG/SENNA 8.6 MG TAB PO SCH ×2 (09:00→20:18)
--- NOTE | 2017-06-10 11:09 | HHI.CCPN ---
Subjective Remarks/Hospital Course 06/04: 56 yo Male with PMH of COPD on 2L home O2, HTN, DM who presented to [facility] [place] ED following asystolic cardiac arrest. states he was in bed most the day. She tried to get him to seek medical attention but he initially refused. She noted that he was having respiratory difficulties so she made preparations to call [facility]. She went into check on him again and he was unresponsive. He was in asystole when [facility] arrived. had not administered bystander CPR. He was intubated in the field and CPR was initiated. Reportedly ROSC was achieved after 9 minutes of CPR per [facility]. He was hypotensive and was started on dopamine per [facility] which was continued in the ED and is currently running at 20 mcg/kg/min. Glucose was 145. His GCS was 3 on arrival and he had anisocoria. However as per the paramedics the said he has history of unequal pupil and the left one being fixed and nonreactive (however she denied this when I inquired about it later that evening??) states he had PFT's Wed per Dr. Eli and has had cough ever since. Had not complained of chest pain but had been having headaches and R leg pain since Lortab was recently discontinued by his physician. 06/05: Remains sedated, orally intubated on mechanical ventilation. Was on neuromuscular blockade which is currently being discontinued. Urine output 10 cc overnight. Given fluid bolus now and renal ultrasound ordered. 06/06: Remains sedated, orally intubated on mechanical ventilation. On propofol for sedation. Off neuromuscular blockade since yesterday. Essentially anuric renal failure. 06/07: Off sedation for more than 24 hours, remains comatose, orally intubated on mechanical ventilation. Vas-Cath placed and started hemodialysis today. 06/08: Remains comatose off sedation, orally intubated on mechanical ventilation. 06/09: Remains comatose off sedation, orally intubated on mechanical ventilation. Awaiting EEG this morning. Tube feeds held this morning for high residuals. Dialyzed yesterday. 06/10: Remains, dose of sedation. Being dialyzed. Consulted neurology for brain eval. Flow study ordered. Objective Vital Signs Date Time Temp Pulse Resp B/P (MAP) Pulse Ox O2 Delivery O2 Flow Rate FiO2 06/10/17 08:45 95 35 06/10/17 06:00 88 06/10/17 04:00 86/72 (77) 123/72 (89) 06/10/17 04:00 97.7 06/09/17 04:00 20 Intake and Output 06/10/17 06/10/17 06/10/17 07:59 15:59 23:59 Intake Total 609 ml Output Total 80 ml Balance 529 ml Result Diagram: 06/09/17 0430 06/09/17 0430 Other Results Laboratory Tests Test 06/09/17 11:10 Blood Gas Puncture Site ART LINE Blood Gas Patient Temperature 98.6 Blood Gas HCO3 23 mmol/L (22-26) Blood Gas Base Excess -1.3 mmol/L (-2-2) Blood Gas Oxygen Saturation 94 % (90-100) Arterial Blood pH 7.42 (7.380-7.420) Arterial Blood Partial Pressure CO2 36 mmHg (38-42) Arterial Blood Partial Pressure O2 99 mmHg (61-120) Arterial Blood Oxygen Content 18.9 Vol % (12.0-20.0) Arterial Blood Carboxyhemoglobin 0.4 % (0-4) Arterial Blood Methemoglobin 1.6 % (0-2) Blood Gas Hemoglobin 14.2 G/DL (12.0-16.0) Oxygen Delivery Device VENTILATOR Blood Gas Ventilator Setting Blood Gas Inspired Oxygen 35 % Objective Remarks GENERAL: Obese male who is orotracheally intubated. Remains comatose off all sedation SKIN: Centrally warm, peripherally cool with some mottling of his knees bilaterally HEAD: Atraumatic. Normocephalic. EYES: R pupil 4-5 mm and nonreactive, L pupil 8 mm and nonreactive. No scleral icterus. No injection or drainage. ENT: No nasal bleeding or discharge. Mucous membranes pale. NECK: Trachea midline. No JVD. CARDIOVASCULAR: Regular rate and rhythm, sinus rhythm on monitor. No murmurs rubs or gallops. RESPIRATORY: Orally intubated on mechanical ventilation, good air entry bilaterally, scattered rhonchi, no wheezing or crackles. GASTROINTESTINAL: Abdomen soft, non-tender, nondistended. Large L inguinal hernia, not incarcerated. : urinary catheter in place MUSCULOSKELETAL: Extremities without clubbing, cyanosis, or significant edema. NEUROLOGICAL: Comatose, orally intubated. 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 Absent gag response, absent doll's eye, absent spontaneous respirations. A/P Assessment and Plan NEURO: Coma Anoxic Encephalopathy Depression Peripheral neuropathy Hard of hearing CT brain - normal Stop Coumadin currently. We will attempt to keep normothermic Hyperammonemia with level 52. Will avoid lactulose at this point due to metabolic derangements. Recent Wright Act for depression. Tylenol, salicylate negative. EtOH negative. Off propofol. Remains comatose. Suspect severe anoxic encephalopathy. Neurology consulted for brain evaluation. Brain flow study ordered with nuclear medicine. Hold gabapentin 300 daily RESP: Acute hypercapnic and hypoxemic respiratory failure Aspiration pneumonia Acute COPD exacerbation Obstructive sleep apnea Continue mechanical ventilation Status post Therapeutic and diagnostic bronchoscopy with removal of copious mucopurulent secretions by Dr. Gomez Ventilator bundle DuoNeb every 4 hours. Albuterol every 2 hours as needed Solu-Medrol 60 mg IV every 6 hours Antibiotics as per below CV: Asystolic cardiac arrest suspect secondary to severe COPD exacerbation with hypercapnia Mild troponin elevation secondary to Type II NSTEMI. We'll trend. Art line placed with Rene Trac for hemodynamic monitoring. Lactic acidemia - secondary to cardiac arrest. Essential hypertension Resumed propranolol 20 mg twice daily GI: Acute ischemic hepatitis tube feeds as tolerated Trend LFTs FEN/RENAL: Acute kidney injury Anuric despite optimization of hemodynamic parameters on Flotrac. Likely secondary to ischemic ATN Renal ultrasound with no hydronephrosis Monitor electrolytes every 6 hours during cooling. Replace as indicated. Hold Celebrex and other NSAIDs Nephrology consulted. Started hemodialysis 06/07. Vas-Cath placed in right IJ ID: Acute community acquired pneumonia versus aspiration pneumonia Severe sepsis Follow-up results of bronchial washing, blood culture. Unable to obtain urine therefore unable to obtain u/a or urine legionella or pneumococcal antigen. Influenza negative Antibiotics per ID. Growing Haemophilus influenza and sputum. Marilynn intertrigo bilateral groin nystatin topical HEME: Monitor CBC ENDO: Type II Diabetes mellitus Monitor bedside glucose every 6 hours and initiate low-dose insulin sliding scale as indicated PROPH: Heparin 5000 units subcutaneous every 12 hours for DVT prophylaxis. Famotidine for stress ulcer prophylaxis ACCESS: Left subclavian central venous line placed by ED physician 06/04. Right radial art line placed 06/04. Right femoral heat exchange catheter placed 06/04, removed 06/08 Patient's is uncertain if he has a living will. She says she believes he may have written up a living will previously and that his sister may have it; she will investigate further. Patient is full code at this time. On 06/04 Dr. Gomez discussed with patient's that neurologic prognosis appears poor at this point. Dr. Gomez also spoke with patient's sister Mialgros and then his brother Abner Krueger on phone. Multiple questions answered. They are aware he is very critically ill with guarded neurologic prognosis and plan to come down from [place] this week. Dr. Gomez discussed with him that we will have limited information about his neurologic prognosis over the next several days as we complete rewarming process and subsequent sedation discontinuation. Consulted palliative care to assist with deciding goals of therapy. Critical care time 35 minutes exclusive of separately billable procedures. Jimy Pacheco MD Jun 10, 2017 11:09
[2017-06-10] MEDS: ALBUMIN 25% INJ 100 ML IV PRN ×2 (11:23→11:24)
[2017-06-10] MEDS: HEPARIN SODIUM - IV 10,000 UNITS/10 ML VIAL PRN (11:25)
[2017-06-10] MEDS: GENTAMICIN SULFATE 20 MG/2 ML VIAL OTHER PRN (11:25)
[2017-06-10] MEDS: HEPARIN SODIUM - SQ 10,000 UNITS/ML VIAL SQ SCH ×2 (12:57→20:18)
[2017-06-10] MEDS: FAMOTIDINE 20 MG TAB PO SCH ×2 (12:58→20:18)
[2017-06-10] MEDS: PROPRANOLOL HCL 20 MG TAB PO SCH ×2 (12:58→20:18)
[2017-06-10] MEDS: CHLORHEXIDINE 0.12% (ORAL KIT) 15 ML CUP MT SCH ×2 (12:59→20:43)
[2017-06-10] MEDS: SODIUM CHLORIDE 0.9% FLUSH 10 ML FLUSH IV FLUSH SCH ×2 (12:59→20:17)
[2017-06-10 13:40] LABS: BICARBONATE 28.2 MEQ/L (21.0-32.0); CALCIUM 8.6 MG/DL (8.5-10.1); CREATININE 5.72 MG/DL (0.60-1.30)
--- NOTE | 2017-06-10 14:22 | RADRPT ---
EXAM DATE/TIME: 06/10/2017 12:56 [facility] COMPARISON: No previous studies available for comparison. INDICATIONS : Cardic Arrest. DOSE: 25.0 mCi Tc99m DTPA IV Please note: The diagnosis of brain is clinical and the results of this test should be taken in the content of clinical and electrocephalographic data. MEDICAL HISTORY : Hypertension. Diabetes mellitus type 2. Chronic obstructive pulmonary disease. SURGICAL HISTORY : Right Hip and Femur. ENCOUNTER: Initial ACUITY: 2 days PAIN SCALE: 0/10 LOCATION: cranial TECHNIQUE: Anterior dynamic imaging as well as delayed static imaging. FINDINGS: Flow study demonstrates prominent activity in the ethmoid/nasal region and no definite cortical blush on the right side. There is some minimal cortical activity seen on the left side. On the delayed phase images, there is some mild activity seen in the sagittal sinus. CONCLUSION: There is some cortical activity seen in the left hemisphere and activity is seen in the sagittal sinu s. Therefore, this study does not meet the nuclear imaging criteria for brain . Terrell Dozier MD on June 10, 2017 at 14:18 Board Certified Radiologist. This report was verified electronically.
--- NOTE | 2017-06-10 14:41 | RADRPT ---
EXAM DATE/TIME: 06/10/2017 13:58 [facility] COMPARISON: No previous studies available for comparison. INDICATIONS : Organ donor ORAL CONTRAST: No oral contrast ingested. RADIATION DOSE: 12.62 CTDIvol (mGy) MEDICAL HISTORY : Seizures. Hypertension. Chronic obstructive pulmonary disease.Diabetes SURGICAL HISTORY : None. ENCOUNTER: Initial ACUITY: 1 day PAIN SCALE: Non-responsive LOCATION: Abdomen TECHNIQUE: Volumetric scanning of the abdomen and pelvis was performed. Using automated exposure control and ad justment of the mA and/or kV according to patient size, radiation dose was kept as low as reasonably achievable to obtain optimal diagnostic quality images. DICOM format image data is available electro nically for review and comparison. FINDINGS: There is multisegmental consolidation left lower lobe with air bronchograms. Small bilateral pleural effusions. The liver is normal in size and has normal density for noncontrast technique. No calcified gallstone s. Kidneys are symmetric in size. Gastric tube tip projects within the stomach. No dilated loops o f small or large bowel. Bruner catheter and rectal balloon in place. There is a large left-sided inguinal hernia containing portion of the sigmoid colon. The inferior as pect of the hernia sac extends below the field of view of the exam. Evidence of prior right inguinal herniorrhaphy with out residual right-sided hernia. Intramedullary amara in the proximal right femur. CONCLUSION: 1. Left lower lobe consolidation. Small bilateral pleural effusions. 2. No focal abnormalities seen in the liver on this noncontrast study. 3. Large left inguinal hernia containing portions of the sigmoid colon. No dilated loops of small or large bowel. Terrell Dozier MD on June 10, 2017 at 14:36 Board Certified Radiologist. This report was verified electronically.
--- NOTE | 2017-06-10 15:42 | HHI.PR ---
Addendum to Inpatient Note Additional Information attempted to see the pt: he was in CT CT results noted will see the pt tomorrow Bessie Hernández MD Jun 10, 2017 15:42
[2017-06-10] MEDS: cefTRIAXone INJ 2,000 MG in SODIUM CHLORIDE 0.9% INJ 100 ML IV SCH (16:27)
--- NOTE | 2017-06-10 16:43 | HHI.NPPN ---
Subjective Renal Failure: Acute History of Present Illness Patient is a 56 yo Male with PMH of COPD on O2 dependent, HTN and DM. Presented to [facility] ED following asystolic cardiac arrest. Per records patient has had a cough for over a week and just not feeling well. Reportedly ROSC was achieved after 9 minutes of CPR per [facility]. Patient is intubated and sedated currently. On therapeutic cool therapy. Nephrology was consulted for acute kidney injury with a creatinine of 3.78. UOP approximately 10 ml overnight and 10 ml today. Patient has received a fluid bolus and is currently on a bicarb gtt. Patient does not have a past medical history of CKD. Additional Remarks Patient remains intubated and unresponsive. Dialysis this AM. (Leyla Tello) Review of Systems General General Remarks Unable to do ROS as patient is intubated (Leyla Tello) Objective Data Data 06/10/17 06/11/17 19:00 07:00 Output Total 600 ml Balance -600 ml Hemodialysis 600 ml Vital Signs Date Time Temp Pulse Resp B/P (MAP) Pulse Ox O2 Delivery O2 Flow Rate FiO2 06/10/17 16:15 95 35 06/10/17 14:00 100 100 06/10/17 13:10 100 100 06/10/17 12:11 94 35 06/10/17 12:00 35 06/10/17 11:00 97.5 95 170/99 (122) 95 103/92 (96) 06/10/17 10:45 97.5 95 169/94 (119) 95 102/91 (95) 06/10/17 10:30 97.5 95 168/95 (119) 95 102/91 (95) 06/10/17 10:15 97.5 93 169/96 (120) 96 111/100 (104) 06/10/17 10:00 35 06/10/17 10:00 97.7 95 184/103 (130) 96 137/112 (120) 06/10/17 09:45 97.7 89 132/80 (97) 96 94/77 (83) 06/10/17 09:30 97.7 88 128/76 (93) 95 117/83 (94) 06/10/17 09:15 97.7 87 126/75 (92) 95 113/82 (92) 06/10/17 09:00 97.7 86 129/77 (94) 95 120/86 (97) 06/10/17 08:45 97.7 85 123/73 (90) 95 117/83 (94) 06/10/17 08:45 95 35 06/10/17 08:30 97.7 86 124/73 (90) 95 116/82 (93) 06/10/17 08:15 97.7 86 126/73 (90) 95 117/83 (94) 06/10/17 08:00 97.5 86 125/73 (90) 94 118/84 (95) 06/10/17 08:00 86 118/84 (95) 125/73 (90) 06/10/17 08:00 35 06/10/17 07:45 97.7 86 123/72 (89) 94 115/82 (93) 06/10/17 07:30 97.9 85 124/72 (89) 94 118/83 (95) 06/10/17 07:15 97.9 84 124/72 (89) 94 117/82 (94) 06/10/17 07:00 97.7 85 121/70 (87) 94 114/82 (93) 06/10/17 06:00 88 06/10/17 04:00 84 06/10/17 04:00 35 06/10/17 04:00 86/72 (77) 123/72 (89) 06/10/17 04:00 97.7 84 123/72 (89) 94 92/77 (82) 06/10/17 03:42 94 35 06/10/17 02:00 75 06/10/17 00:15 95 35 06/10/17 00:00 95.9 74 118/73 (88) 95 95/86 (89) 06/10/17 00:00 35 06/10/17 00:00 118/73 (88) 06/10/17 00:00 74 118/73 06/10/17 00:00 74 06/09/17 22:18 75 87/55 06/09/17 22:00 77 06/09/17 20:25 94 35 06/09/17 20:00 96.4 83 113/69 (84) 94 105/66 (79) 06/09/17 20:00 35 06/09/17 20:00 105/66 (79) 113/69 (84) 06/09/17 20:00 83 06/09/17 18:00 96.8 86 115/71 (86) 94 105/66 (79) 06/09/17 18:00 86 06/09/17 17:00 64.4 89 124/74 (91) 95 112/71 (85) (Leyla Tello) -: 06/09/17 0430 06/10/17 1255 Tubes & Lines: Vas-Cath, Bruner (Leyla Tello) Physical Exam General Appearance: No Acute Distress, Obese Appearance Remarks intubated (Leyla Tello) Throat Throat Exam: Oral Mucosa [place] & Moist (Leyla Tello) Pulmonary Resp Exam: Breath Sounds Equal, No Distress (Leyla Tello) Cardiology CV Exam: Regular (Leyla Tello) Gastrointestinal/Abdomen GI Exam: Soft, Non-Tender, Distended (Leyla Tello) Genitourinary Remarks minimal uop (Leyla Tello) Integumentary Skin Exam: Clear, Warm, Dry (Leyla Tello) Extremeties Extremities Exam: Moderate Edema (Leyla Tello) Neurologic Neuro Exam: Sedated (Leyla Tello) Assessment/Plan Problem List: (1) Acute kidney injury ICD Codes: N17.9 - Acute kidney failure, unspecified Plan: Acute kidney injury with a creatinine of 3.78 most likely ATN from cardiopulmonary arrest. FeNA at 0.54 % suggestive of prerenal state but unlikely with significant rise in creatinine. Renal US with no acute findings HD started on 06/07 via vas cath UOP minimal Plan Avoid nephrotoxins as possible Renal dose antibiotics Continue to monitor UOP and BMP HD this AM Work up for neurological brain damage in progress. (2) Respiratory failure ICD Codes: J96.90 - Respiratory failure, unspecified, unspecified whether with hypoxia or hypercapnia Plan: sedated and intubated (3) Cardiorespiratory arrest ICD Codes: I46.9 - Cardiac arrest, cause unspecified Status: Acute (Leyla Tello) Problem List: (1) Acute kidney injury ICD Codes: N17.9 - Acute kidney failure, unspecified Plan: Acute kidney injury with a creatinine of 3.78 most likely ATN from cardiopulmonary arrest. FeNA at 0.54 % suggestive of prerenal state but unlikely with significant rise in creatinine. Renal US with no acute findings HD started on 06/07 via vas cath UOP minimal Plan Avoid nephrotoxins as possible Renal dose antibiotics Continue to monitor UOP and BMP HD this AM Work up for neurological brain damage in progress. Patient seen and examined, agree with above. HD done in AM. (2) Respiratory failure ICD Codes: J96.90 - Respiratory failure, unspecified, unspecified whether with hypoxia or hypercapnia Plan: sedated and intubated (3) Cardiorespiratory arrest ICD Codes: I46.9 - Cardiac arrest, cause unspecified Status: Acute (Jana Martin MD) Leyla Tello Jun 10, 2017 16:43 Jana Mratin MD Jun 10, 2017 18:32
--- NOTE | 2017-06-10 17:02 | HHI.IDPN ---
Subjective Subjective Remarks pt remains comatous Unresponsive remains on vent Hypothermia resolved flow study shows a little bit of flow Antibiotics azithro CFTX Allergies: Coded Allergies: quetiapine (Unverified Adverse Reaction, Severe, Agitation, 06/04/17) Objective . Vital Signs Date Time Temp Pulse Resp B/P (MAP) Pulse Ox O2 Delivery O2 Flow Rate FiO2 06/10/17 16:15 95 35 06/10/17 14:00 100 100 06/10/17 13:10 100 100 06/10/17 12:11 94 35 06/10/17 12:00 35 06/10/17 11:00 97.5 95 170/99 (122) 95 103/92 (96) 06/10/17 10:45 97.5 95 169/94 (119) 95 102/91 (95) 06/10/17 10:30 97.5 95 168/95 (119) 95 102/91 (95) 06/10/17 10:15 97.5 93 169/96 (120) 96 111/100 (104) 06/10/17 10:00 35 06/10/17 10:00 97.7 95 184/103 (130) 96 137/112 (120) 06/10/17 09:45 97.7 89 132/80 (97) 96 94/77 (83) 06/10/17 09:30 97.7 88 128/76 (93) 95 117/83 (94) 06/10/17 09:15 97.7 87 126/75 (92) 95 113/82 (92) 06/10/17 09:00 97.7 86 129/77 (94) 95 120/86 (97) 06/10/17 08:45 97.7 85 123/73 (90) 95 117/83 (94) 06/10/17 08:45 95 35 06/10/17 08:30 97.7 86 124/73 (90) 95 116/82 (93) 06/10/17 08:15 97.7 86 126/73 (90) 95 117/83 (94) 06/10/17 08:00 97.5 86 125/73 (90) 94 118/84 (95) 06/10/17 08:00 86 118/84 (95) 125/73 (90) 06/10/17 08:00 35 06/10/17 07:45 97.7 86 123/72 (89) 94 115/82 (93) 06/10/17 07:30 97.9 85 124/72 (89) 94 118/83 (95) 06/10/17 07:15 97.9 84 124/72 (89) 94 117/82 (94) 06/10/17 07:00 97.7 85 121/70 (87) 94 114/82 (93) 06/10/17 06:00 88 06/10/17 04:00 84 06/10/17 04:00 35 06/10/17 04:00 86/72 (77) 123/72 (89) 06/10/17 04:00 97.7 84 123/72 (89) 94 92/77 (82) 06/10/17 03:42 94 35 06/10/17 02:00 75 06/10/17 00:15 95 35 06/10/17 00:00 95.9 74 118/73 (88) 95 95/86 (89) 06/10/17 00:00 35 06/10/17 00:00 118/73 (88) 06/10/17 00:00 74 118/73 06/10/17 00:00 74 06/09/17 22:18 75 87/55 06/09/17 22:00 77 06/09/17 20:25 94 35 06/09/17 20:00 96.4 83 113/69 (84) 94 105/66 (79) 06/09/17 20:00 35 06/09/17 20:00 105/66 (79) 113/69 (84) 06/09/17 20:00 83 06/09/17 18:00 96.8 86 115/71 (86) 94 105/66 (79) 06/09/17 18:00 86 06/09/17 17:00 64.4 89 124/74 (91) 95 112/71 (85) 06/10/17 06/10/17 06/11/17 15:00 23:00 07:00 Output Total 600 ml Balance -600 ml Hemodialysis 600 ml . Laboratory Tests Test 06/09/17 04:30 White Blood Count 19.7 TH/MM3 Red Blood Count 4.62 MIL/MM3 Hemoglobin 14.0 GM/DL Hematocrit 41.7 % Mean Corpuscular Volume 90.1 FL Mean Corpuscular Hemoglobin 30.4 PG Mean Corpuscular Hemoglobin Concent 33.7 % Red Cell Distribution Width 14.0 % Platelet Count 247 TH/MM3 Mean Platelet Volume 8.2 FL Neutrophils (%) (Auto) 92.0 % Lymphocytes (%) (Auto) 3.1 % Monocytes (%) (Auto) 4.5 % Eosinophils (%) (Auto) 0.0 % Basophils (%) (Auto) 0.4 % Neutrophils # (Auto) 18.1 TH/MM3 Lymphocytes # (Auto) 0.6 TH/MM3 Monocytes # (Auto) 0.9 TH/MM3 Eosinophils # (Auto) 0.0 TH/MM3 Basophils # (Auto) 0.1 TH/MM3 CBC Comment AUTO DIFF Differential Total Cells Counted 100 Neutrophils % (Manual) 90 % Band Neutrophils % 1 % Lymphocytes % 5 % Monocytes % 3 % Neutrophils # (Manual) 18.1 TH/MM3 Metamyelocytes 1 % Differential Comment AUTO DIFF CONFIRMED Platelet Estimate NORMAL Platelet Morphology Comment NORMAL Laboratory Tests Test 06/09/17 04:30 06/10/17 12:55 Blood Urea Nitrogen 107 MG/DL 82 MG/DL Creatinine 6.88 MG/DL 5.72 MG/DL Random Glucose 294 MG/DL 268 MG/DL Total Protein 6.1 GM/DL Albumin 2.0 GM/DL Calcium Level 8.5 MG/DL 8.6 MG/DL Alkaline Phosphatase 79 U/L Aspartate Amino Transf (AST/SGOT) 45 U/L Alanine Aminotransferase (ALT/SGPT) 103 U/L Total Bilirubin 0.5 MG/DL Sodium Level 140 MEQ/L 143 MEQ/L Potassium Level 3.6 MEQ/L 4.5 MEQ/L Chloride Level 101 MEQ/L 103 MEQ/L Carbon Dioxide Level 23.0 MEQ/L 28.2 MEQ/L Anion Gap 16 MEQ/L 12 MEQ/L Estimat Glomerular Filtration Rate 8 ML/MIN 10 ML/MIN Imaging Last Impressions Brain Flow Nuclear Medicine 06/10/17 0000 Signed Impressions: Service Date/Time: Saturday, June 10, 2017 12:56 - CONCLUSION: There is some cortical activity seen in the left hemisphere and activity is seen in the sagittal sinus. Therefore, this study does not meet the nuclear imaging criteria for brain . Terrell Dozier MD Abdomen/Pelvis CT 06/10/17 0000 Signed Impressions: Service Date/Time: Saturday, June 10, 2017 13:58 - CONCLUSION: 1. Left lower lobe consolidation. Small bilateral pleural effusions. 2. No focal abnormalities seen in the liver on this noncontrast study. 3. Large left inguinal hernia containing portions of the sigmoid colon. No dilated loops of small or large bowel. Terrell Dozier MD Chest X-Ray 06/07/17 0000 Signed Impressions: Service Date/Time: Wednesday, June 07, 2017 09:42 - CONCLUSION: 1. Interval placement of right internal jugular central venous line with no pneumothorax. 2. No acute cardiopulmonary disease. Sravan Alvarez MD Renal Ultrasound 06/05/17 0000 Signed Impressions: Service Date/Time: Monday, June 05, 2017 11:50 - CONCLUSION: No hydronephrosis Jakob Carter MD Head CT 06/04/17 1555 Signed Impressions: Service Date/Time: Sunday, June 04, 2017 16:42 - CONCLUSION: Normal examination. Ludin Woods MD Physical Exam CONSTITUTIONAL/GENERAL: This is an adequately nourished patient, in no apparent distress. Sedated, intubated, on vent TUBES/LINES/DRAINS: SKIN: No jaundice, rashes, or lesions. Skin temperature appropriate. Not diaphoretic. CARDIOVASCULAR: Regular rate and rhythm without murmurs, gallops, or rubs. No JVD. Peripheral pulses symmetric. RESPIRATORY/CHEST: Symmetric, unlabored respirations. Rhonchi to auscultation. Breath sounds equal bilaterally. GASTROINTESTINAL: Abdomen soft, non-tender, nondistended. No hepato-splenomegaly , or palpable masses. No guarding. Bowel sounds present. liquid stool in rectal bag GENITOURINARY: Without palpable bladder distension. Bruner catheter in place. MUSCULOSKELETAL: Extremities without clubbing, cyanosis, + 2-3 edema. No joint tenderness or effusion noted. No calf tenderness. No mottling or clubbing. LYMPHATICS: No palpable cervical or supraclavicular adenopathy. NEUROLOGICAL: unresponsive PSYCHIATRIC: unable to assess Assessment & Plan Remarks PNA, H.flu Acute VDRF Anoxic encephlopathy [place]er[place] leukocytpsis, diarrhea, abx associated - tr/o c.diff LLL PNA cont CFTX chk stool for c.diff chk sputum, blood and urine clx dw Bessie Bartlett MD Jun 10, 2017 17:02
[2017-06-10] MEDS: METOCLOPRAMIDE HCL 10 MG/2 ML VIAL IV SCH (18:21)
[2017-06-10] MEDS: AZITHROMYCIN INJ 500 MG in SODIUM CHLOR 0.9% 250 ML INJ 250 ML IV SCH (20:18)
--- NOTE | 2017-06-10 21:02 | HHI.PR ---
Review/Management Diagnosis severe anoxic encephalopathy. Absent brain stem functions on exam. Prognosis very poor Plan repeat cerebral blood flow in next 1-2 days Diagnosis/Plan: Subjective Subjective Comments No acute events reported Active Medications Current Medications Medications (Trade) Dose Ordered Sig/Tiago Route Start Time Stop Time Status Last Admin Dopamine HCl/ Dextrose 500 ml @ 0 mls/hr TITRATE PRN IV 06/04/17 16:00 06/04/17 17:48 Miscellaneous Information 1 Q361D XX 06/04/17 17:45 (Chlorhexidine 2% Cloth) Taper DAILY@04 TOP 06/05/17 04:00 06/01/18 03:59 06/10/17 04:38 (Chlorhexidine 2% Cloth) 3 pack UNSCH PRN TOP 06/04/17 17:45 (Azra-Colace) 1 tab BID PO 06/04/17 21:00 06/10/17 20:18 (Milk Of Magnesia Liq) 30 ml Q12H PRN PO 06/04/17 17:45 (Senokot) 17.2 mg Q12H PRN PO 06/04/17 17:45 (Dulcolax Supp) 10 mg DAILY PRN RECTAL 06/04/17 17:45 (Lactulose Liq) 30 ml DAILY PRN PO 06/04/17 17:45 Azithromycin 500 mg/Sodium Chloride 250 ml @ 250 mls/hr Q24H IV 06/04/17 20:00 06/10/17 20:18 (Brethine Inj) 1 mg UNSCH PRN SQ 06/04/17 17:45 (Albuterol Neb) 2.5 mg Q2HR NEB PRN INH 06/04/17 19:30 06/06/17 05:17 (Peridex 0.12% Liq) 15 ml BID@08,20 MT 06/05/17 08:00 06/10/17 20:43 (Ativan Inj) 1 mg Q1H PRN IV PUSH 06/04/17 21:00 Midazolam HCl 100 ml @ 2 mls/hr TITRATE PRN IV 06/04/17 21:00 06/04/17 23:13 (Lacrilube Opht Oint) 1 applic Q4H PRN EACH EYE 06/04/17 21:00 06/05/17 20:07 (NS Flush) 2 ml BID IV FLUSH 06/04/17 21:00 06/10/17 20:17 (NS Flush) 2 ml UNSCH PRN IV FLUSH 06/04/17 21:00 06/09/17 08:11 Miscellaneous Information 0 ml @ 0 mls/hr UNSCH IV 06/04/17 21:00 (Heparin Inj) 5,000 units Q12HR SQ 06/04/17 21:00 06/10/17 20:18 Norepinephrine Bitartrate 4 mg/ Sodium Chloride 250 ml @ 7.5 mls/hr TITRATE PRN IV 06/04/17 22:15 06/09/17 22:18 (D50w (Vial) Inj) 50 ml UNSCH PRN IV PUSH 06/05/17 01:45 (Glucagon Inj) 1 mg UNSCH PRN OTHER 06/05/17 01:45 (NovoLOG SUPPLEMENTAL SCALE) 1 Q6H SQ 06/05/17 04:00 06/10/17 16:00 (Pepcid) 10 mg BID PO 06/05/17 21:00 06/10/17 20:18 Propofol 100 ml @ 3.12 mls/hr TITRATE PRN IV 06/05/17 11:30 06/06/17 04:29 (Mycostatin Cream) 1 applic Q6HR TOPICAL 06/05/17 12:00 06/10/17 18:18 (SoluMEDROL INJ) 60 mg Q6H IV PUSH 06/05/17 13:00 06/10/17 18:22 (Trandate Inj) 10 mg Q4H PRN IV PUSH 06/05/17 19:45 06/08/17 06:06 (Apresoline Inj) 20 mg Q4H PRN IV PUSH 06/05/17 19:45 06/08/17 06:17 (Inderal) 20 mg BID PO 06/06/17 13:00 06/10/17 20:18 Ceftriaxone Sodium 2000 mg/ Sodium Chloride 100 ml @ 200 mls/hr Q24H IV 06/06/17 16:00 06/10/17 16:27 Sodium Chloride 1,000 ml @ 0 mls/hr Q0M PRN OTHER 06/07/17 10:46 06/08/17 14:37 (Heparin Inj) 8,000 units UNSCH PRN IV FLUSH 06/07/17 11:00 Sodium Chloride 1,000 ml @ 200 mls/hr Q5H PRN IV 06/07/17 10:46 Sodium Chloride 1,000 ml @ 0 mls/hr Q0M PRN OTHER 06/07/17 10:46 (Mannitol Inj) 12.5 gm UNSCH PRN IV 06/07/17 11:00 Albumin Human 100 ml @ 60 mls/hr UNSCH PRN IV 06/07/17 11:00 06/10/17 11:24 (NS Flush) 5 ml UNSCH PRN IV FLUSH 06/07/17 11:00 06/08/17 14:38 (Heparin Inj) UNSCH PRN .XX 06/07/17 11:00 06/10/17 11:25 (Gentamicin Inj) 20 mg UNSCH PRN OTHER 06/07/17 11:00 06/10/17 11:25 (Zofran Inj) 4 mg UNSCH PRN IV PUSH 06/07/17 11:00 (Tylenol) 650 mg UNSCH PRN PO 06/07/17 11:00 (Benadryl) 25 mg UNSCH PRN PO 06/07/17 11:00 (Nitrostat Sl) 0.4 mg UNSCH PRN SL 06/07/17 11:00 (Catapres) 0.1 mg UNSCH PRN PO 06/07/17 11:00 (Gelfoam 12 Mm/7 Mm Top) 1 foam UNSCH PRN TOP 06/07/17 11:00 (Phoslo) 667 mg TID PO 06/07/17 13:00 06/10/17 18:18 (Levemir Inj) 5 units Q12HR SQ 06/10/17 09:00 06/10/17 20:19 (Reglan Inj) 5 mg Q8H IV 06/10/17 17:00 06/10/17 18:21 Allergies Allergies Coded Allergies quetiapine (Unverified Adverse Reaction, Severe, Agitation, 06/04/17) Exam I&O / VS 06/10/17 06/10/17 06/11/17 15:00 23:00 07:00 Intake Total 171 ml Output Total 600 ml 270.0 ml Balance -600 ml -99.0 ml Intake IV Total 100 ml Tube Feeding 71 ml Output Urine Total 30 ml Stool Total 0 ml Tube Feeding Residual Discard 240.0 ml Hemodialysis 600 ml Vital Signs Date Time Temp Pulse Resp B/P (MAP) Pulse Ox O2 Delivery O2 Flow Rate FiO2 06/10/17 18:00 86 06/10/17 18:00 97.0 86 129/74 (92) 94 104/67 (79) 06/10/17 17:30 97.2 88 135/75 (95) 95 107/70 (82) 06/10/17 17:00 97.3 89 140/81 (100) 95 110/74 (86) 06/10/17 16:30 97.2 89 141/80 (100) 95 114/78 (90) 06/10/17 16:15 95 35 06/10/17 16:00 89 06/10/17 16:00 35 06/10/17 16:00 98.3 89 143/81 (101) 95 114/81 (92) 06/10/17 16:00 89 114/81 (92) 143/81 (101) 06/10/17 15:30 97.0 91 193/103 (133) 94 156/114 (128) 06/10/17 15:05 97.2 90 144/81 (102) 95 90/60 (70) 06/10/17 15:00 91 145/81 (102) 95 73/58 (63) 06/10/17 14:30 97.5 91 140/79 (99) 97 06/10/17 14:26 97.5 90 134/77 (96) 97 06/10/17 14:00 100 100 06/10/17 14:00 97.2 92 26 06/10/17 14:00 92 06/10/17 13:59 97.2 91 23 159/95 (116) 06/10/17 13:30 97.5 90 22 128/71 (90) 98 06/10/17 13:12 97.7 93 20 144/80 (101) 94 06/10/17 13:10 100 100 06/10/17 13:00 97.5 93 142/79 (100) 94 108/73 (85) 06/10/17 12:45 97.5 94 147/82 (103) 94 136/88 (104) 06/10/17 12:30 97.5 96 149/82 (104) 94 109/92 (98) 06/10/17 12:15 97.5 97 179/93 (121) 94 124/103 (110) 06/10/17 12:11 94 35 06/10/17 12:00 35 06/10/17 12:00 98.4 98 176/92 (120) 94 106/95 (99) 06/10/17 12:00 98 106/95 (99) 176/92 (120) 06/10/17 12:00 98 06/10/17 11:00 97.5 95 170/99 (122) 95 103/92 (96) 06/10/17 10:45 97.5 95 169/94 (119) 95 102/91 (95) 06/10/17 10:30 97.5 95 168/95 (119) 95 102/91 (95) 06/10/17 10:15 97.5 93 169/96 (120) 96 111/100 (104) 06/10/17 10:00 35 06/10/17 10:00 97.7 95 184/103 (130) 96 137/112 (120) 06/10/17 10:00 95 06/10/17 09:45 97.7 89 132/80 (97) 96 94/77 (83) 06/10/17 09:30 97.7 88 128/76 (93) 95 117/83 (94) 06/10/17 09:15 97.7 87 126/75 (92) 95 113/82 (92) 06/10/17 09:00 97.7 86 129/77 (94) 95 120/86 (97) 06/10/17 08:45 97.7 85 123/73 (90) 95 117/83 (94) 06/10/17 08:45 95 35 06/10/17 08:30 97.7 86 124/73 (90) 95 116/82 (93) 06/10/17 08:15 97.7 86 126/73 (90) 95 117/83 (94) 06/10/17 08:00 97.5 86 125/73 (90) 94 118/84 (95) 06/10/17 08:00 86 118/84 (95) 125/73 (90) 06/10/17 08:00 86 06/10/17 08:00 35 06/10/17 07:45 97.7 86 123/72 (89) 94 115/82 (93) 06/10/17 07:30 97.9 85 124/72 (89) 94 118/83 (95) 06/10/17 07:15 97.9 84 124/72 (89) 94 117/82 (94) 06/10/17 07:00 97.7 85 121/70 (87) 94 114/82 (93) 06/10/17 06:00 88 06/10/17 04:00 84 06/10/17 04:00 35 06/10/17 04:00 86/72 (77) 123/72 (89) 06/10/17 04:00 97.7 84 123/72 (89) 94 92/77 (82) 06/10/17 03:42 94 35 06/10/17 02:00 75 06/10/17 00:15 95 35 06/10/17 00:00 95.9 74 118/73 (88) 95 95/86 (89) 06/10/17 00:00 35 06/10/17 00:00 118/73 (88) 06/10/17 00:00 74 118/73 06/10/17 00:00 74 06/09/17 22:18 75 87/55 06/09/17 22:00 77 Exam Comments nonresponsive to voice Pupil fixed at 4 mm nonreactiv No extra-occular motility to occulocephalics absent corneal reflexes absent gag, not breathing over ventilator MOTOR--no spontaneous limb movement Objective Radiology Results Cerebral blood flow--minimal blood flow is noted Micro and Labs Laboratory Tests Test 06/10/17 12:55 Blood Urea Nitrogen 82 Creatinine 5.72 Random Glucose 268 Calcium Level 8.6 Sodium Level 143 Potassium Level 4.5 Chloride Level 103 Carbon Dioxide Level 28.2 Anion Gap 12 Estimat Glomerular Filtration Rate 10 Date/Time Source Procedure Growth Status 06/04/17 15:55 Blood Peripheral Aerobic Blood Culture - Final NO GROWTH IN 5 DAYS Complete 06/04/17 15:55 Blood Peripheral Anaerobic Blood Culture - Final NO GROWTH IN 5 DAYS Complete 06/10/17 19:30 Sputum Endotracheal Gram Stain Pending Received 06/10/17 19:30 Sputum Endotracheal Sputum Culture Pending Received 06/05/17 10:30 Urine Catheterized Urine Urine Culture - Final NO GROWTH IN 48 HOURS. Complete Alfredo Anaya MD PhD Jun 10, 2017 21:02
[2017-06-10 22:43] LABS: AMORPHOUS SEDIMENT, URINE RARE; BACTERIA, URINE OCC /hpf; BILIRUBIN, URINE NEG (NEG); BLOOD, URINE MOD (NEG); GLUCOSE,URINE 300 mg/dL (NEG); KETONE, URINE NEG (NEG); MUCUS URINE FEW /lpf (OCC); NITRITE,URINE NEG (NEG); PH, URINE 5.5 (5.0-8.5); SQUAMOUS EPITHELIAL CELL URINE <1 /hpf (0-5); URINE COLOR YELLOW (YELLW/STRAW); URINE LEUKOCYTE ESTERASE LARGE (NEG)
[2017-06-11] VITALS (35 sets, daily range): BP systolic 115–198; BP diastolic 68–115; PULSE 79–107; RESP 20; TEMP 98.1–99.7; O2SAT 92–95
[2017-06-11] MEDS: methylPREDNISolone SOD SUCC 125 MG/2 ML VIAL IV PUSH SCH ×4 (00:04→17:54)
[2017-06-11] MEDS: METOCLOPRAMIDE HCL 10 MG/2 ML VIAL IV SCH ×3 (00:05→17:52)
[2017-06-11] MEDS: NYSTATIN 100,000 UNIT/GM CREAM 15 GM TOPICAL SCH ×4 (00:05→17:54)
[2017-06-11] MEDS: hydrALAZINE HCL 20 MG/ML VIAL IV PUSH PRN ×4 (02:22→20:33)
[2017-06-11] MEDS: CHLORHEXIDINE GLUCONATE 2 % 1 PACK (2 CLOTHS) TOP SCH (04:01)
[2017-06-11] MEDS: INSULIN ASPART SUPPLEMENTAL SCALE SQ SCH ×4 (04:01→22:49)
[2017-06-11 08:12] LABS: AUTOMATED NEUTROPHIL # 19.1 TH/MM3 (1.8-7.7); BASOPHIL % 0.1 % (0.0-2.0); EOSINOPHIL # 0.2 TH/MM3 (0-0.4); EOSINOPHIL % 0.8 % (0.0-4.0); HEMOGLOBIN 12.8 GM/DL (13.0-17.0); LYMPH % 2.8 % (9.0-44.0); LYMPHOCYTE # 0.6 TH/MM3 (1.0-4.8); MEAN CELL VOLUME 90.6 FL (80.0-100.0); MEAN CORPUSCULAR HEMOGLOBIN 30.4 PG (27.0-34.0); MEAN CORPUSCULAR HGB CONC 33.6 % (32.0-36.0); MEAN PLATELET VOLUME 9.1 FL (7.0-11.0); NEUT % 91.3 % (16.0-70.0); PLATELET COUNT 206 TH/MM3 (150-450); RED CELL DISTRIBUTION WIDTH 14.1 % (11.6-17.2); WHITE BLOOD COUNT 20.9 TH/MM3 (4.0-11.0)
[2017-06-11] MEDS: FAMOTIDINE 20 MG TAB PO SCH ×2 (08:17→20:11)
[2017-06-11] MEDS: CALCIUM ACETATE 667 MG CAP PO SCH ×3 (08:17→17:54)
[2017-06-11] MEDS: PROPRANOLOL HCL 20 MG TAB PO SCH ×2 (08:17→20:11)
[2017-06-11] MEDS: DOCUSATE SODIUM 50 MG/SENNA 8.6 MG TAB PO SCH ×2 (08:17→20:11)
[2017-06-11] MEDS: CHLORHEXIDINE 0.12% (ORAL KIT) 15 ML CUP MT SCH ×2 (08:17→20:09)
[2017-06-11] MEDS: HEPARIN SODIUM - SQ 10,000 UNITS/ML VIAL SQ SCH ×2 (08:17→20:11)
[2017-06-11] MEDS: SODIUM CHLORIDE 0.9% FLUSH 10 ML FLUSH IV FLUSH SCH ×2 (08:18→20:10)
[2017-06-11] MEDS: INSULIN DETEMIR 100 UNITS/ML VIAL SQ SCH ×2 (08:18→20:12)
[2017-06-11] MEDS: ARTIFICIAL TEARS OPTH OINT 3.5 APPLIC/3.5 GM TUBO EACH EYE PRN (08:21)
--- NOTE | 2017-06-11 08:28 | HHI.CCPN ---
Subjective Remarks/Hospital Course 06/04: 56 yo Male with PMH of COPD on 2L home O2, HTN, DM who presented to [facility] ED following asystolic cardiac arrest. states he was in bed most the day. She tried to get him to seek medical attention but he initially refused. She noted that he was having respiratory difficulties so she made preparations to call [facility]. She went into check on him again and he was unresponsive. He was in asystole when [facility] arrived. had not administered bystander CPR. He was intubated in the field and CPR was initiated. Reportedly ROSC was achieved after 9 minutes of CPR per [facility]. He was hypotensive and was started on dopamine per [facility] which was continued in the ED and is currently running at 20 mcg/kg/min. Glucose was 145. His GCS was 3 on arrival and he had anisocoria. However as per the paramedics the said he has history of unequal pupil and the left one being fixed and nonreactive (however she denied this when I inquired about it later that evening??) states he had PFT's Wed per Dr. Eli and has had cough ever since. Had not complained of chest pain but had been having headaches and R leg pain since Lortab was recently discontinued by his physician. 06/05: Remains sedated, orally intubated on mechanical ventilation. Was on neuromuscular blockade which is currently being discontinued. Urine output 10 cc overnight. Given fluid bolus now and renal ultrasound ordered. 06/06: Remains sedated, orally intubated on mechanical ventilation. On propofol for sedation. Off neuromuscular blockade since yesterday. Essentially anuric renal failure. 06/07: Off sedation for more than 24 hours, remains comatose, orally intubated on mechanical ventilation. Vas-Cath placed and started hemodialysis today. 06/08: Remains comatose off sedation, orally intubated on mechanical ventilation. 06/09: Remains comatose off sedation, orally intubated on mechanical ventilation. Awaiting EEG this morning. Tube feeds held this morning for high residuals. Dialyzed yesterday. 06/10: Remains, dose of sedation. Being dialyzed. Consulted neurology for brain eval. Flow study ordered. 06/11: T-max 99.1. No change in neurological status. Cerebral blood flow revealed some cortical activity. Repeat study planned in the near future per neurology recommendations. Reglan instituted yesterday every 8 hours Glucerna initiated at trickle feeds. Objective Vital Signs Date Time Temp Pulse Resp B/P (MAP) Pulse Ox O2 Delivery O2 Flow Rate FiO2 06/11/17 06:00 90 06/11/17 04:00 99.1 158/87 (110) 95 Arterial Line 06/11/17 04:00 35 06/10/17 14:00 26 Intake and Output 06/11/17 06/11/17 06/12/17 08:00 16:00 00:00 Intake Total 65 ml Output Total 235 ml Balance -170 ml Result Diagram: 06/09/17 0430 06/10/17 1255 Other Results Last Impressions Brain Flow Nuclear Medicine 06/10/17 0000 Signed Impressions: Service Date/Time: Saturday, June 10, 2017 12:56 - CONCLUSION: There is some cortical activity seen in the left hemisphere and activity is seen in the sagittal sinus. Therefore, this study does not meet the nuclear imaging criteria for brain . Terrell Dozier MD Abdomen/Pelvis CT 06/10/17 0000 Signed Impressions: Service Date/Time: Saturday, June 10, 2017 13:58 - CONCLUSION: 1. Left lower lobe consolidation. Small bilateral pleural effusions. 2. No focal abnormalities seen in the liver on this noncontrast study. 3. Large left inguinal hernia containing portions of the sigmoid colon. No dilated loops of small or large bowel. Terrell Dozier MD Chest X-Ray 06/07/17 0000 Signed Impressions: Service Date/Time: Wednesday, June 07, 2017 09:42 - CONCLUSION: 1. Interval placement of right internal jugular central venous line with no pneumothorax. 2. No acute cardiopulmonary disease. Sravan Alvarez MD Renal Ultrasound 06/05/17 0000 Signed Impressions: Service Date/Time: Monday, June 05, 2017 11:50 - CONCLUSION: No hydronephrosis Jakob Carter MD Head CT 06/04/17 1555 Signed Impressions: Service Date/Time: Sunday, June 04, 2017 16:42 - CONCLUSION: Normal examination. Ludin Woods MD Objective Remarks GENERAL: Obese male who is orotracheally intubated. Remains comatose off all sedation SKIN: Centrally warm, peripherally cool with some mottling of his knees bilaterally HEAD: Atraumatic. Normocephalic. EYES: R pupil 4-5 mm and fixed, L pupil 8 mm and nonreactive. No scleral icterus. No injection or drainage. ENT: No nasal bleeding or discharge. Mucous membranes pale. NECK: Trachea midline. No JVD. CARDIOVASCULAR: Regular rate and rhythm, sinus rhythm on monitor. No murmurs rubs or gallops. RESPIRATORY: Orally intubated on mechanical ventilation, good air entry bilaterally, scattered rhonchi, no wheezing or crackles. GASTROINTESTINAL: Abdomen soft, non-tender, nondistended. Large L inguinal hernia, not incarcerated. : urinary catheter in place MUSCULOSKELETAL: Extremities without clubbing, cyanosis, 1+ peripheral edema. NEUROLOGICAL: Comatose, orally intubated. 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 Absent gag response, absent doll's eye, absent corneal reflex, absent spontaneous respirations. A/P Assessment and Plan NEURO: Coma Anoxic Encephalopathy Depression Peripheral neuropathy Hard of hearing Hyperammonemia CT brain - normal /2 cerebral brain flow study-some cortical activity seen in left hemisphere and sagittal sinus 4/2 Neurology following Stop Coumadin currently. We will attempt to keep normothermic Hyperammonemia with level 52. Will avoid lactulose at this point due to metabolic derangements. Recent Wright Act for depression. Tylenol, salicylate negative. EtOH negative. Remains comatose. Suspect severe anoxic encephalopathy. Neurology consulted for brain evaluation. Brain flow study ordered with nuclear medicine. Hold gabapentin 300 daily Repeat ammonia RESP: Acute hypercapnic and hypoxemic respiratory failure Aspiration pneumonia Acute COPD exacerbation Obstructive sleep apnea Continue mechanical ventilation Status post Therapeutic and diagnostic bronchoscopy with removal of copious mucopurulent secretions by Dr. Gomez Ventilator bundle DuoNeb every 4 hours. Albuterol every 2 hours as needed Solu-Medrol 60 mg IV every 6 hours Antibiotics as per below 4/2: CPAP trial initiated patient failed not breathing over the vent on no sedation CV: Asystolic cardiac arrest suspect secondary to severe COPD exacerbation with hypercapnia Type II NSTEMI Lactic acidemia - secondary to cardiac arrest. Essential hypertension Resumed propranolol 20 mg twice daily Mild troponin elevation secondary to type II NSTEMI Art line placed with Rene Trac for hemodynamic monitoring. Discontinued 06/11 GI: Acute ischemic hepatitis tube feeds as tolerated 06/11 changed to Glucerna -we will re-initiate trickle feeds 06/10 Reglan every 8 hours Trend LFTs FEN/RENAL: Acute kidney injury Anuric despite optimization of hemodynamic parameters on Flotrac. Likely secondary to ischemic ATN Renal ultrasound with no hydronephrosis Monitor electrolytes every 6 hours during cooling. Replace as indicated. Hold Celebrex and other NSAIDs Nephrology consulted. Started hemodialysis 06/07. Vas-Cath placed in right IJ ID: Acute community acquired pneumonia versus aspiration pneumonia Severe sepsis Follow-up results of bronchial washing, blood culture. Unable to obtain urine therefore unable to obtain u/a or urine legionella or pneumococcal antigen. Influenza negative Antibiotics per ID. Growing Haemophilus influenza and sputum. Marilynn intertrigo bilateral groin nystatin topical HEME: Monitor CBC ENDO: Type II Diabetes mellitus Monitor bedside glucose every 6 hours and initiate low-dose insulin sliding scale as indicated PROPH: Heparin 5000 units subcutaneous every 12 hours for DVT prophylaxis. Famotidine for stress ulcer prophylaxis ACCESS: Left subclavian central venous line placed by ED physician 06/04. Right radial art line placed 06/04. Right femoral heat exchange catheter placed 06/04, removed 06/08 Patient's is uncertain if he has a living will. She says she believes he may have written up a living will previously and that his sister may have it; she will investigate further. Patient is full code at this time. On 06/04 Dr. Gomez discussed with patient's that neurologic prognosis appears poor at this point. Dr. Gomez also spoke with patient's sister Milagros and then his brother Abner Krueger on phone. Multiple questions answered. They are aware he is very critically ill with guarded neurologic prognosis and plan to come down from [place] this week. Dr. Gomez discussed with him that we will have limited information about his neurologic prognosis over the next several days as we complete rewarming process and subsequent sedation discontinuation. Palliative Care following my billing statement This patient remains critically ill with one or more organ systems which are or may become a threat to life. I have spent in excess of 30 minutes discontinuously in the care and management of this patient. This time is exclusive of procedures, and includes, but is not limited to, evaluation of the patient, review of the medical record, discussions with family, consultants, nursing staff, or respiratory therapy, and documentation in the medical record. Physician Milagros Monahan MD Jun 11, 2017 08:28
[2017-06-11 09:10] LABS: BANDS 1 % (0-6); LYMPHOCYTES 6 % (9-44); METAMYELOCYTES 3 % (0-1); MONOCYTES 4 % (0-8); NEUTROPHIL # MANUAL DIFF 18.8 TH/MM3 (1.8-7.7); POLYS (SEG NEUTROPHILS) 86 % (16-70)
[2017-06-11] MEDS: cloNIDine HCL 0.1 MG TAB PO PRN ×3 (11:43→22:38)
[2017-06-11] MEDS ORDERED: ARTIFICIAL TEARS OPTH OINT 3.5 APPLIC/3.5 GM TUBO EACH EYE PRN (11:45)
[2017-06-11] MEDS ORDERED: ARTIFICIAL TEARS OPTH OINT 3.5 APPLIC/3.5 GM TUBO EACH EYE SCH (11:45)
[2017-06-11] MEDS: LABETALOL HCL 100 MG/20 ML VIAL IV PUSH PRN ×3 (13:22→23:19)
--- NOTE | 2017-06-11 15:20 | HHI.NPPN ---
Subjective Renal Failure: Acute History of Present Illness Patient is a 56 yo Male with PMH of COPD on O2 dependent, HTN and DM. Presented to [facility] following asystolic cardiac arrest. Per records patient has had a cough for over a week and just not feeling well. Reportedly ROSC was achieved after 9 minutes of CPR per [facility]. Patient is intubated and sedated currently. On therapeutic cool therapy. Nephrology was consulted for acute kidney injury with a creatinine of 3.78. UOP approximately 10 ml overnight and 10 ml today. Patient has received a fluid bolus and is currently on a bicarb gtt. Patient does not have a past medical history of CKD. Additional Remarks Patient remains intubated and unresponsive. (Leyla Tello) Review of Systems General General Remarks Unable to do ROS as patient is intubated (Leyla Tello) Objective Data Data Vital Signs Date Time Temp Pulse Resp B/P (MAP) Pulse Ox O2 Delivery O2 Flow Rate FiO2 06/11/17 13:23 93 35 06/11/17 11:00 90 06/11/17 10:50 93 35 06/11/17 10:30 97.3 87 20 189/105 (133) 93 06/11/17 10:00 97.2 86 20 192/109 (136) 94 06/11/17 10:00 86 06/11/17 09:30 97.0 85 20 194/104 (134) 93 06/11/17 09:00 87 06/11/17 09:00 97.2 87 20 187/104 (131) 93 06/11/17 08:40 94 35 06/11/17 08:30 97.5 91 20 194/111 (138) 94 06/11/17 08:00 90 06/11/17 08:00 35 06/11/17 08:00 98.3 90 20 190/107 (134) 94 06/11/17 07:30 97.9 90 20 170/95 (120) 94 06/11/17 07:00 88 06/11/17 07:00 98.1 88 20 159/91 (113) 94 06/11/17 06:00 90 06/11/17 04:00 99.1 95 158/87 (110) 95 Arterial Line 06/11/17 04:00 35 06/11/17 04:00 95 06/11/17 03:31 94 35 06/11/17 02:00 83 06/11/17 01:02 94 35 06/11/17 00:00 35 06/11/17 00:00 79 115/85 (95) 130/68 (88) 06/11/17 00:00 98.1 79 130/68 (88) 94 115/85 (95) 06/11/17 00:00 79 06/10/17 22:00 77 06/10/17 21:38 95 35 06/10/17 20:00 35 06/10/17 20:00 97.3 87 140/81 (100) 93 131/91 (104) 06/10/17 20:00 87 131/91 (104) 140/81 (100) 06/10/17 20:00 87 06/10/17 18:00 86 06/10/17 18:00 97.0 86 129/74 (92) 94 104/67 (79) 06/10/17 17:30 97.2 88 135/75 (95) 95 107/70 (82) 06/10/17 17:00 97.3 89 140/81 (100) 95 110/74 (86) 06/10/17 16:30 97.2 89 141/80 (100) 95 114/78 (90) 06/10/17 16:15 95 35 06/10/17 16:00 89 06/10/17 16:00 35 06/10/17 16:00 98.3 89 143/81 (101) 95 114/81 (92) 06/10/17 16:00 89 114/81 (92) 143/81 (101) 06/10/17 15:30 97.0 91 193/103 (133) 94 156/114 (128) (Leyla Tello) -: 06/11/17 0800 06/10/17 1255 Microbiology 06/10/17 Aerobic Blood Culture - Preliminary, Resulted NO GROWTH IN 1 DAY 06/10/17 Anaerobic Blood Culture - Preliminary, Resulted NO GROWTH IN 1 DAY 06/10/17 Aerobic Blood Culture - Preliminary, Resulted NO GROWTH IN 1 DAY 06/10/17 Anaerobic Blood Culture - Preliminary, Resulted NO GROWTH IN 1 DAY 06/10/17 Gram Stain - Final, Resulted 06/10/17 Sputum Culture - Preliminary, Resulted IMMATURE GROWTH - REINCUBATE 06/10/17 Urine Culture - Preliminary, Resulted RESULTS PENDING Tubes & Lines: Vas-Cath, [place] (Leyla Tello) Physical Exam General Appearance: No Acute Distress, Obese Appearance Remarks intubated (Leyla Tello) Throat Throat Exam: Oral Mucosa [place] & Moist (Leyla Tello) Pulmonary Resp Exam: Breath Sounds Equal, No Distress (Leyla Tello) Cardiology CV Exam: Regular (Leyla Tello) Gastrointestinal/Abdomen GI Exam: Soft, Non-Tender, Distended (Leyla Tello) Genitourinary Remarks minimal uop (Leyla Tello) Integumentary Skin Exam: Clear, Warm, Dry (Leyla Tello) Extremeties Extremities Exam: Moderate Edema (Leyla Tello) Neurologic Neuro Exam: Sedated (Leyla Tello) Assessment/Plan Problem List: (1) Acute kidney injury ICD Codes: N17.9 - Acute kidney failure, unspecified Plan: Acute kidney injury with a creatinine of 3.78 most likely ATN from cardiopulmonary arrest. FeNA at 0.54 % suggestive of prerenal state but unlikely with significant rise in creatinine. Renal US with no acute findings HD started on 06/07 via vas cath UOP remain minimal Plan Avoid nephrotoxins as possible Renal dose antibiotics Continue to monitor UOP and BMP creatinine at 5.72 today HD planned for tomorrow. (2) Respiratory failure ICD Codes: J96.90 - Respiratory failure, unspecified, unspecified whether with hypoxia or hypercapnia Plan: sedated and intubated (3) Cardiorespiratory arrest ICD Codes: I46.9 - Cardiac arrest, cause unspecified Status: Acute (Leyla Tello) Problem List: (1) Acute kidney injury ICD Codes: N17.9 - Acute kidney failure, unspecified Plan: Acute kidney injury with a creatinine of 3.78 most likely ATN from cardiopulmonary arrest. FeNA at 0.54 % suggestive of prerenal state but unlikely with significant rise in creatinine. Renal US with no acute findings HD started on 06/07 via vas cath UOP remain minimal Plan Avoid nephrotoxins as possible Renal dose antibiotics Continue to monitor UOP and BMP creatinine at 5.72 today HD planned for tomorrow. Patient seen and examined, agree with above. HD will be in AM. (2) Respiratory failure ICD Codes: J96.90 - Respiratory failure, unspecified, unspecified whether with hypoxia or hypercapnia Plan: sedated and intubated (3) Cardiorespiratory arrest ICD Codes: I46.9 - Cardiac arrest, cause unspecified Status: Acute (Jana Martin MD) Leyla TelloP Jun 11, 2017 15:20 Jana Martin MD Jun 11, 2017 18:54
[2017-06-11] MEDS: cefTRIAXone INJ 2,000 MG in SODIUM CHLORIDE 0.9% INJ 100 ML IV SCH (15:48)
--- NOTE | 2017-06-11 17:36 | HHI.HCPN ---
Reason for visit a. To assist with evaluation and management of symptoms including:dyspnea; encephalopathy b. To assist medical decision maker(s) with: better understanding of current medical conditions; weighing benefits/burdens of medical treatment options; making medical treatment decisions. . Subjective/Interval History Patient remains mechanically ventilated, unresponsive, off sedation in medical ICU. Not breathing over vent. Brain stem reflexed absent per neurology. Cerebral blood flow has been performed to evaluate for brain . It still shows some cortical activity. Prognosis for survival is bleak. Essentially no probability of any type of meaningful recovery. Patient continues to require hemodialysis. Reglan being started as tube feeds are poorly tolerated. . Family/friend interactions Spoke with patient's - Edith -- by phone. I updated her on the patient' s condition and prognosis indicating there was no chance for meaningful recovery. I let her know that it would be possible to keep him alive some more on life support but nothing we can do will make him better. I enquired about withdrawal of life support and code status. She wants family to be part of this decision. There are other family members in town. I tried to set up a family meeting for 06/12/17. She could not give me a time but promised to get back to me. . Advance Directives Living Will: Never completed Health Care Surrogate: Never completed Durable Power of Warehouse Logistics Manager: Never completed Objective Vital Signs Date Time Temp Pulse Resp B/P (MAP) Pulse Ox O2 Delivery O2 Flow Rate FiO2 06/11/17 16:26 93 35 06/11/17 15:00 97 06/11/17 15:00 98.8 97 20 198/115 (142) 93 06/11/17 14:30 98.6 95 20 189/108 (135) 94 06/11/17 14:00 98.4 91 20 175/96 (122) 93 06/11/17 14:00 91 06/11/17 13:30 98.4 84 20 155/90 (111) 93 06/11/17 13:23 93 35 06/11/17 13:00 96 06/11/17 13:00 98.2 96 20 175/100 (125) 93 06/11/17 12:30 98.1 96 20 174/98 (123) 93 06/11/17 12:00 98.2 95 20 172/97 (122) 93 06/11/17 12:00 95 4/3/18 12:00 35 06/11/17 11:51 97.9 92 20 174/96 (122) 92 06/11/17 11:00 90 06/11/17 10:50 93 35 06/11/17 10:30 97.3 87 20 189/105 (133) 93 06/11/17 10:00 97.2 86 20 192/109 (136) 94 06/11/17 10:00 86 06/11/17 09:30 97.0 85 20 194/104 (134) 93 06/11/17 09:00 87 06/11/17 09:00 97.2 87 20 187/104 (131) 93 06/11/17 08:40 94 35 06/11/17 08:30 97.5 91 20 194/111 (138) 94 06/11/17 08:00 90 06/11/17 08:00 35 06/11/17 08:00 98.3 90 20 190/107 (134) 94 06/11/17 07:30 97.9 90 20 170/95 (120) 94 06/11/17 07:00 88 06/11/17 07:00 98.1 88 20 159/91 (113) 94 06/11/17 06:00 90 06/11/17 04:00 99.1 95 158/87 (110) 95 Arterial Line 06/11/17 04:00 35 06/11/17 04:00 95 06/11/17 03:31 94 35 06/11/17 02:00 83 06/11/17 01:02 94 35 06/11/17 00:00 35 06/11/17 00:00 79 115/85 (95) 130/68 (88) 06/11/17 00:00 98.1 79 130/68 (88) 94 115/85 (95) 06/11/17 00:00 79 06/10/17 22:00 77 06/10/17 21:38 95 35 06/10/17 20:00 35 06/10/17 20:00 97.3 87 140/81 (100) 93 131/91 (104) 06/10/17 20:00 87 131/91 (104) 140/81 (100) 06/10/17 20:00 87 06/10/17 18:00 86 06/10/17 18:00 97.0 86 129/74 (92) 94 104/67 (79) 06/10/17 17:30 97.2 88 135/75 (95) 95 107/70 (82) Intake & Output 06/11/17 06/11/17 07:00 19:00 Intake Total 315 ml Output Total 235 ml Balance 80 ml Intake IV Total 250 ml Tube Feeding 65 ml Output Urine Total 35 ml Stool Total 200 ml . Physical Exam CONSTITUTIONAL/GENERAL: Intubated, unresponsive (off sedation) TUBES/LINES/DRAINS:ET tube, dialysis cath, jaramillo, Left subclavian central line. SKIN: Skin temperature appropriate. Not diaphoretic. EYES: Right eye patched. Left pupil fixed and dilated. ENT: Unable to assess hearing. Nose without bleeding or purulent drainage. Throat ET tube in place NECK: Trachea midline. CARDIOVASCULAR: Regular rate and rhythm without murmurs, gallops, or rubs. No JVD. Peripheral pulses symmetric. RESPIRATORY/CHEST: Lungs clear. GASTROINTESTINAL: Abdomen soft, non-tender, nondistended. No hepato-splenomegaly , or palpable masses. GENITOURINARY: Without palpable bladder distension. MUSCULOSKELETAL: Extremities with 2+ edema on all extremities LYMPHATICS: Not examined NEUROLOGICAL: Unresponsive. Absent corneal reflexes. Absent gag. PSYCHIATRIC: could not examine given clinical status. . Diagnostic Tests Laboratory Laboratory Tests Test 06/09/17 04:30 06/09/17 11:10 06/10/17 12:55 06/10/17 20:45 White Blood Count 19.7 TH/MM3 (4.0-11.0) Red Blood Count 4.62 MIL/MM3 (4.50-5.90) Hemoglobin 14.0 GM/DL (13.0-17.0) Hematocrit 41.7 % (39.0-51.0) Mean Corpuscular Volume 90.1 FL (80.0-100.0) Mean Corpuscular Hemoglobin 30.4 PG (27.0-34.0) Mean Corpuscular Hemoglobin Concent 33.7 % (32.0-36.0) Red Cell Distribution Width 14.0 % (11.6-17.2) Platelet Count 247 TH/MM3 (150-450) Mean Platelet Volume 8.2 FL (7.0-11.0) Neutrophils (%) (Auto) 92.0 % (16.0-70.0) Lymphocytes (%) (Auto) 3.1 % (9.0-44.0) Monocytes (%) (Auto) 4.5 % (0.0-8.0) Eosinophils (%) (Auto) 0.0 % (0.0-4.0) Basophils (%) (Auto) 0.4 % (0.0-2.0) Neutrophils # (Auto) 18.1 TH/MM3 (1.8-7.7) Lymphocytes # (Auto) 0.6 TH/MM3 (1.0-4.8) Monocytes # (Auto) 0.9 TH/MM3 (0-0.9) Eosinophils # (Auto) 0.0 TH/MM3 (0-0.4) Basophils # (Auto) 0.1 TH/MM3 (0-0.2) CBC Comment AUTO DIFF Differential Total Cells Counted 100 Neutrophils % (Manual) 90 % (16-70) Band Neutrophils % 1 % (0-6) Lymphocytes % 5 % (9-44) Monocytes % 3 % (0-8) Neutrophils # (Manual) 18.1 TH/MM3 (1.8-7.7) Metamyelocytes 1 % (0-1) Differential Comment AUTO DIFF CONFIRMED Platelet Estimate NORMAL (NORMAL) Platelet Morphology Comment NORMAL (NORMAL) Blood Urea Nitrogen 107 MG/DL (7-18) 82 MG/DL (7-18) Creatinine 6.88 MG/DL (0.60-1.30) 5.72 MG/DL (0.60-1.30) Random Glucose 294 MG/DL (74-106) 268 MG/DL (74-106) Total Protein 6.1 GM/DL (6.4-8.2) Albumin 2.0 GM/DL (3.4-5.0) Calcium Level 8.5 MG/DL (8.5-10.1) 8.6 MG/DL (8.5-10.1) Alkaline Phosphatase 79 U/L (45-117) Aspartate Amino Transf (AST/SGOT) 45 U/L (15-37) Alanine Aminotransferase (ALT/SGPT) 103 U/L (12-78) Total Bilirubin 0.5 MG/DL (0.2-1.0) Sodium Level 140 MEQ/L (136-145) 143 MEQ/L (136-145) Potassium Level 3.6 MEQ/L (3.5-5.1) 4.5 MEQ/L (3.5-5.1) Chloride Level 101 MEQ/L (98-107) 103 MEQ/L (98-107) Carbon Dioxide Level 23.0 MEQ/L (21.0-32.0) 28.2 MEQ/L (21.0-32.0) Anion Gap 16 MEQ/L (5-15) 12 MEQ/L (5-15) Estimat Glomerular Filtration Rate 8 ML/MIN (>89) 10 ML/MIN (>89) Blood Gas Puncture Site ART LINE Blood Gas Patient Temperature 98.6 Blood Gas HCO3 23 mmol/L (22-26) Blood Gas Base Excess -1.3 mmol/L (-2-2) Blood Gas Oxygen Saturation 94 % (90-100) Arterial Blood pH 7.42 (7.380-7.420) Arterial Blood Partial Pressure CO2 36 mmHg (38-42) Arterial Blood Partial Pressure O2 99 mmHg (61-120) Arterial Blood Oxygen Content 18.9 Vol % (12.0-20.0) Arterial Blood Carboxyhemoglobin 0.4 % (0-4) Arterial Blood Methemoglobin 1.6 % (0-2) Blood Gas Hemoglobin 14.2 G/DL (12.0-16.0) Oxygen Delivery Device VENTILATOR Blood Gas Ventilator Setting Blood Gas Inspired Oxygen 35 % Urine Color YELLOW (YELLW/STRAW) Urine Turbidity HAZY (CLEAR) Urine pH 5.5 (5.0-8.5) Urine Specific [place] 1.015 (1.002-1.035) Urine Protein 100 mg/dL (NEG-TRACE) Urine Glucose (UA) 300 mg/dL (NEG) Urine Ketones NEG mg/dL (NEG) Urine Occult Blood MOD (NEG) Urine Nitrite NEG (NEG) Urine Bilirubin NEG (NEG) Urine Urobilinogen LESS THAN 2.0 MG/DL (LESS Urine Leukocyte Esterase LARGE (NEG) Urine RBC 31 /hpf (0-3) Urine WBC 38 /hpf (0-5) Urine Squamous Epithelial Cells <1 /hpf (0-5) Urine Amorphous Sediment RARE Urine Bacteria OCC /hpf (NONE) Urine Mucus FEW /lpf (OCC) Microscopic Urinalysis Comment CATH-CULTURE IND Test 06/11/17 08:00 06/11/17 09:00 White Blood Count 20.9 TH/MM3 (4.0-11.0) Red Blood Count 4.20 MIL/MM3 (4.50-5.90) Hemoglobin 12.8 GM/DL (13.0-17.0) Hematocrit 38.0 % (39.0-51.0) Mean Corpuscular Volume 90.6 FL (80.0-100.0) Mean Corpuscular Hemoglobin 30.4 PG (27.0-34.0) Mean Corpuscular Hemoglobin Concent 33.6 % (32.0-36.0) Red Cell Distribution Width 14.1 % (11.6-17.2) Platelet Count 206 TH/MM3 (150-450) Mean Platelet Volume 9.1 FL (7.0-11.0) Neutrophils (%) (Auto) 91.3 % (16.0-70.0) Lymphocytes (%) (Auto) 2.8 % (9.0-44.0) Monocytes (%) (Auto) 5.0 % (0.0-8.0) Eosinophils (%) (Auto) 0.8 % (0.0-4.0) Basophils (%) (Auto) 0.1 % (0.0-2.0) Neutrophils # (Auto) 19.1 TH/MM3 (1.8-7.7) Lymphocytes # (Auto) 0.6 TH/MM3 (1.0-4.8) Monocytes # (Auto) 1.0 TH/MM3 (0-0.9) Eosinophils # (Auto) 0.2 TH/MM3 (0-0.4) Basophils # (Auto) 0.0 TH/MM3 (0-0.2) CBC Comment AUTO DIFF Differential Total Cells Counted 100 Neutrophils % (Manual) 86 % (16-70) Band Neutrophils % 1 % (0-6) Lymphocytes % 6 % (9-44) Monocytes % 4 % (0-8) Neutrophils # (Manual) 18.8 TH/MM3 (1.8-7.7) Metamyelocytes 3 % (0-1) Differential Comment FINAL DIFF MANUAL Atypical Lymphocytes % (0-0) Platelet Estimate NORMAL (NORMAL) Platelet Morphology Comment NORMAL (NORMAL) Red Cell Morphology Comment NORMAL (NORMAL) Stool C. difficile Toxin (PCR) NEGATIVE (NEGATIVE) Stl C. difficile Toxin Epiderm 027 PRESUMPTIVE NEGATIVE . Result Diagram: 06/11/17 0800 06/10/17 1255 Microbiology Microbiology Date/Time Source Procedure Growth Status 06/10/17 20:45 Blood Peripheral Aerobic Blood Culture - Preliminary NO GROWTH IN 1 DAY Resulted 06/10/17 20:45 Blood Peripheral Anaerobic Blood Culture - Preliminary NO GROWTH IN 1 DAY Resulted 06/10/17 20:30 Blood Peripheral Aerobic Blood Culture - Preliminary NO GROWTH IN 1 DAY Resulted 06/10/17 20:30 Blood Peripheral Anaerobic Blood Culture - Preliminary NO GROWTH IN 1 DAY Resulted 06/10/17 19:30 Sputum Endotracheal Gram Stain - Final Resulted 06/10/17 19:30 Sputum Endotracheal Sputum Culture - Preliminary IMMATURE GROWTH - REINCUBATE Resulted 06/10/17 20:45 Urine Catheterized Urine Urine Culture - Preliminary RESULTS PENDING Resulted . Imaging Last Impressions Brain Flow Nuclear Medicine 06/10/17 0000 Signed Impressions: Service Date/Time: Saturday, June 10, 2017 12:56 - CONCLUSION: There is some cortical activity seen in the left hemisphere and activity is seen in the sagittal sinus. Therefore, this study does not meet the nuclear imaging criteria for brain . Terrell Dozier MD Abdomen/Pelvis CT 06/10/17 0000 Signed Impressions: Service Date/Time: Saturday, June 10, 2017 13:58 - CONCLUSION: 1. Left lower lobe consolidation. Small bilateral pleural effusions. 2. No focal abnormalities seen in the liver on this noncontrast study. 3. Large left inguinal hernia containing portions of the sigmoid colon. No dilated loops of small or large bowel. Terrell Dozier MD Chest X-Ray 06/07/17 0000 Signed Impressions: Service Date/Time: Wednesday, June 07, 2017 09:42 - CONCLUSION: 1. Interval placement of right internal jugular central venous line with no pneumothorax. 2. No acute cardiopulmonary disease. Sravan Alvarez MD Renal Ultrasound 06/05/17 0000 Signed Impressions: Service Date/Time: Monday, June 05, 2017 11:50 - CONCLUSION: No hydronephrosis Jakob Carter MD Head CT 06/04/17 1555 Signed Impressions: Service Date/Time: Sunday, June 04, 2017 16:42 - CONCLUSION: Normal examination. Ludin Woods MD . Assessment and Plan Disease Oriented Problem List: (1) Encephalopathy Comment: Severe. No brain stem reflexes. Minimal brain flow. . (2) Septic shock (3) Cardiorespiratory arrest (4) Respiratory failure Comment: pneumonia (5) Acute kidney injury Comment: Requiring hemodialysis. . Symptom Scale: (1) Dyspnea 0-10 Scale: Unable to quantify Comment: Managed on the ventilator. . Pertinent Non-Medical Issues Psychosocial:Lives with . On disablility. No children Spiritual:Synagogue Legal: Per , she had confirmed with his sister, pt has no advance directives. Ethical issues impacting care:Patient is incapacitated and has no reasonable probability of recovering capacity. . Important Contacts Edith Silva [phone] . Prognosis Patient has a history of COPD, chronic pain that was found by to be unresponsive. EVAC found patient to be in asystole, where CPR was initiated and patient intubated. Now with severe anoxic encephalopathy. Is not breathing over vent. There is loss of brain stem reflexes. Brain flow study showing minimal flow. Chances of survival are bleak. Essentially no chance of meaningful recovery. . Code Status: Full Code Plan == Code Status : FUll CODE == Decision making: Patient is incapacitated to make his own health care decisions. There is no reasonable probability that he will regain capacity to do so. No advance directive. Pt's -- Edith Silva -- is proxy healthcare decision maker. == symptom- dyspnea- currently intubated, no new med recommendation. == Goals of medical treatment: Patient remains full code. needs to consults with other family members before changing code status or considering withdrawal of life support. However, she has also said previously he would not want to be prolonged on life support if there were no hope of meaningful recovery. == Spoke with by telephone on 06/11/17. We are trying to arrange a family meeting with her and other visiting relatives on 06/12/17. She is unable to give me a time for this yet. . Time Spent Total Floor Time (mins): 40 (Total floor time included chart review, patient exam, above referenced phone call to patients proxy (), and documentation. ) Face to Face Time (mins): 8 >50% Counseling/Coord of Care: Yes Attestation To help prompt me to consider important information that might be impacting today's encounter and assessment, information from prior notes written by myself or my colleagues may have been "brought forward" into today's note. My signature on this note, however, is an attestation that I personally performed the exam, history, and/or decision-making noted today, and, unless otherwise indicated, the interactions with patient, family, and staff as well as the review of records all occurred today. I also attest that the listed assessment and stated plan reflect my best clinical judgment today based on the combination of historical information, prior notes, and today's exam/ interactions. When time spent is documented, it refers only to time spent today by the signer, or if indicated, combined time spent today by collaborating physician/nurse practitioner. . Jesse Devlin MD Jun 11, 2017 17:36
[2017-06-11] MEDS: AZITHROMYCIN INJ 500 MG in SODIUM CHLOR 0.9% 250 ML INJ 250 ML IV SCH (20:11)
[2017-06-11] MEDS: ARTIFICIAL TEARS OPTH OINT 3.5 APPLIC/3.5 GM TUBO EACH EYE SCH (20:34)
[2017-06-12] VITALS (39 sets, daily range): BP systolic 101–185; BP diastolic 69–109; PULSE 82–103; RESP 16–20; TEMP 98.5–100.4; O2SAT 92–98
[2017-06-12] MEDS: methylPREDNISolone SOD SUCC 125 MG/2 ML VIAL IV PUSH SCH ×4 (00:56→18:00)
[2017-06-12] MEDS: METOCLOPRAMIDE HCL 10 MG/2 ML VIAL IV SCH ×3 (00:57→18:00)
[2017-06-12] MEDS: hydrALAZINE HCL 20 MG/ML VIAL IV PUSH PRN ×3 (00:57→15:38)
[2017-06-12] MEDS: NYSTATIN 100,000 UNIT/GM CREAM 15 GM TOPICAL SCH ×5 (01:04→23:01)
[2017-06-12] MEDS: CHLORHEXIDINE GLUCONATE 2 % 1 PACK (2 CLOTHS) TOP SCH ×2 (03:12→19:12)
[2017-06-12] MEDS: LABETALOL HCL 100 MG/20 ML VIAL IV PUSH PRN ×3 (03:50→23:01)
[2017-06-12] MEDS: INSULIN ASPART SUPPLEMENTAL SCALE SQ SCH ×4 (03:51→20:30)
[2017-06-12 03:52] LABS: AUTOMATED NEUTROPHIL # 24.1 TH/MM3 (1.8-7.7); BASOPHIL # 0.1 TH/MM3 (0-0.2); BASOPHIL % 0.3 % (0.0-2.0); LYMPH % 2.4 % (9.0-44.0); LYMPHOCYTE # 0.6 TH/MM3 (1.0-4.8); MEAN CELL VOLUME 90.2 FL (80.0-100.0); MEAN CORPUSCULAR HEMOGLOBIN 30.1 PG (27.0-34.0); MEAN CORPUSCULAR HGB CONC 33.4 % (32.0-36.0); MONO % 4.8 % (0.0-8.0); MONOCYTE # 1.3 TH/MM3 (0-0.9); NEUT % 92.5 % (16.0-70.0); PLATELET COUNT 246 TH/MM3 (150-450); RED BLOOD COUNT 4.66 MIL/MM3 (4.50-5.90); RED CELL DISTRIBUTION WIDTH 14.4 % (11.6-17.2); WHITE BLOOD COUNT 26.1 TH/MM3 (4.0-11.0)
[2017-06-12 04:20] LABS: BICARBONATE 24.7 MEQ/L (21.0-32.0); CALCIUM 9.1 MG/DL (8.5-10.1); CREATININE 9.45 MG/DL (0.60-1.30)
[2017-06-12 04:42] LABS: LYMPHOCYTES 4 % (9-44); METAMYELOCYTES 1 % (0-1); MONOCYTES 6 % (0-8); MYELOCYTES 1 % (0-0); NEUTROPHIL # MANUAL DIFF 23.5 TH/MM3 (1.8-7.7); POLYS (SEG NEUTROPHILS) 87 % (16-70); PROMYELOCYTES 1 % (0-0)
[2017-06-12 04:43] LABS: TOXIC GRANULATION 1+ (NORMAL); TOXIC VACUOLATION PRESENT (NONE SEEN)
[2017-06-12] MEDS: cloNIDine HCL 0.1 MG TAB PO PRN (05:26)
--- NOTE | 2017-06-12 05:54 | RADRPT ---
EXAM DATE/TIME: 06/12/2017 03:02 [facility] COMPARISON: CHEST SINGLE AP, June 07, 2017, 9:42. INDICATIONS : Short of breath. MEDICAL HISTORY : Chronic obstructive pulmonary disease. SURGICAL HISTORY : None. ENCOUNTER: Subsequent ACUITY: 4 - 6 days PAIN SCORE: 0/10 LOCATION: Bilateral chest FINDINGS: Endotracheal tube, nasogastric tube and right neck central catheter are stable. Mild hazy basilar inf iltrate is present on the left, unchanged. Cardiac contours are grossly stable. CONCLUSION: No significant interval change Jakob Carter MD on June 12, 2017 at 5:51 Board Certified Radiologist. This report was verified electronically.
[2017-06-12] MEDS ORDERED: SODIUM POLYSTYRENE SULFONATE SUSP 15 GM/60 ML CUP PO ONE ×2 (06:45→20:00)
[2017-06-12] MEDS ORDERED: INSULIN HUMAN REGULAR 1,000 UNITS/10 ML VIAL IV PUSH ONE (06:45)
[2017-06-12] MEDS ORDERED: DEXTROSE 50% IN WATER 50 ML VIAL(D50) IV PUSH ONE (06:45)
[2017-06-12] MEDS ORDERED: CALCIUM CHLORIDE INJ 1 GM in SODIUM CHLORIDE 0.9% INJ 100 ML IV ONE (08:00)
[2017-06-12] MEDS: SODIUM CHLORIDE 0.9% FLUSH 10 ML FLUSH IV FLUSH SCH ×2 (08:09→13:26)
[2017-06-12] MEDS: CALCIUM ACETATE 667 MG CAP PO SCH ×3 (08:10→17:59)
[2017-06-12] MEDS: HEPARIN SODIUM - SQ 10,000 UNITS/ML VIAL SQ SCH ×2 (08:10→20:54)
[2017-06-12] MEDS: FAMOTIDINE 20 MG TAB PO SCH ×2 (08:10→20:53)
[2017-06-12] MEDS: DOCUSATE SODIUM 50 MG/SENNA 8.6 MG TAB PO SCH ×2 (08:10→20:54)
[2017-06-12] MEDS: PROPRANOLOL HCL 20 MG TAB PO SCH ×2 (08:10→20:53)
[2017-06-12] MEDS: INSULIN DETEMIR 100 UNITS/ML VIAL SQ SCH ×2 (08:11→20:46)
[2017-06-12] MEDS: CHLORHEXIDINE 0.12% (ORAL KIT) 15 ML CUP MT SCH ×2 (08:11→19:12)
[2017-06-12] MEDS: ARTIFICIAL TEARS OPTH OINT 3.5 APPLIC/3.5 GM TUBO EACH EYE SCH ×2 (09:00→20:53)
[2017-06-12] MEDS: GENTAMICIN SULFATE 20 MG/2 ML VIAL OTHER PRN (11:34)
[2017-06-12] MEDS: HEPARIN SODIUM - IV 10,000 UNITS/10 ML VIAL PRN (11:34)
--- NOTE | 2017-06-12 14:47 | HHI.HCPN ---
Reason for visit a. To assist with evaluation and management of symptoms including:dyspnea; encephalopathy b. To assist medical decision maker(s) with: better understanding of current medical conditions; weighing benefits/burdens of medical treatment options; making medical treatment decisions. . Subjective/Interval History Patient remains mechanically ventilated, unresponsive, off sedation in medical ICU. Not breathing over vent. Hemodialysis performed today. No significant change overnight. . Family/friend interactions Met with family -- spouse; sister (Martha Silva); father (Jakob Silva); and step-mother (Sameera Silva). We met in the consult room for about 50 minutes after family had a chance to visit with patient. I reviewed the course of events leading up until now addressing the hypoxic injuries to brain and kidneys. We discussed the severity of the anoxic brain event as apparent from neurological exam and from brain flow study. I addressed the minimal chance of survival and how with survival there would likely be [facility] need for ongoing life support and the technology had no hope of returning Sravan to a life of meaning an purpose. Family shared stories about Sravan's first traumatic brain injury. 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 We discussed plans going forward. I described the two routes -- ongoing aggressive care vs withdrawal of life support. I answered questions regarding the latter. Family was in agreement that the patient, given the prognosis, would not want to continue on life support much longer. However, the patient's older brother is scheduled to arrive from [place] on Saturday evening or Saturday. They would like patient to remain alive until that visit. They would plan on withdrawing sometime after the brother arrived. I then discussed resuscitation status. They agreed that the patient would not want chest compressions or shock under the circumstances. . Advance Directives Living Will: Never completed Health Care Surrogate: Never completed Durable Power of Anatomy Professor: Never completed Objective Vital Signs Date Time Temp Pulse Resp B/P (MAP) Pulse Ox O2 Delivery O2 Flow Rate FiO2 06/12/17 11:18 94 35 06/12/17 09:45 98.6 93 20 125/85 (98) 94 06/12/17 09:30 98.6 95 20 125/82 (96) 92 06/12/17 09:15 98.4 92 20 101/69 (80) 92 06/12/17 09:00 98.4 93 20 158/96 (116) 94 06/12/17 08:33 94 35 06/12/17 08:30 98.6 95 20 165/97 (119) 94 06/12/17 08:00 98.5 94 20 156/92 (113) 93 06/12/17 08:00 35 06/12/17 08:00 94 06/12/17 07:30 98.4 94 20 154/95 (114) 93 06/12/17 07:00 98.4 94 20 160/92 (114) 92 06/12/17 06:00 90 06/12/17 04:00 35 06/12/17 04:00 82 06/12/17 04:00 98.9 82 20 149/91 (110) 94 06/12/17 03:15 94 35 06/12/17 02:00 97 06/12/17 00:41 98 35 06/12/17 00:00 35 06/12/17 00:00 97 06/12/17 00:00 100.4 97 20 175/100 (125) 92 06/11/17 22:00 96 06/11/17 20:45 94 35 06/11/17 20:00 103 06/11/17 20:00 99.7 103 20 187/102 (130) 92 06/11/17 20:00 35 06/11/17 18:00 99.1 107 20 172/93 (119) 93 06/11/17 18:00 107 06/11/17 17:30 106 06/11/17 17:30 99.0 106 20 171/96 (121) 92 06/11/17 17:00 99.0 105 20 176/96 (122) 92 06/11/17 17:00 105 06/11/17 16:30 104 06/11/17 16:30 98.8 104 20 177/97 (123) 92 06/11/17 16:26 93 35 06/11/17 16:00 35 06/11/17 16:00 98.9 103 20 172/96 (121) 92 06/11/17 16:00 103 06/11/17 15:00 97 06/11/17 15:00 98.8 97 20 198/115 (142) 93 Intake & Output 06/12/17 06/12/17 07:00 19:00 Intake Total 270 ml Output Total 250 ml 3220.0 ml Balance 20 ml -3220.0 ml Intake IV Total 250 ml Tube Feeding 20 ml Output Urine Total 100 ml Stool Total 150 ml Tube Feeding Residual Discard 220.0 ml Hemodialysis 3000 ml . Physical Exam CONSTITUTIONAL/GENERAL: Intubated, unresponsive (off sedation) TUBES/LINES/DRAINS:ET tube, dialysis cath, jaramillo, Left subclavian central line. SKIN: Skin temperature appropriate. Not diaphoretic. EYES: Right eye patched. Left pupil fixed and dilated. ENT: Unable to assess hearing. Nose without bleeding or purulent drainage. Throat ET tube in place NECK: Trachea midline. CARDIOVASCULAR: Regular rate and rhythm without murmurs, gallops, or rubs. No JVD. Peripheral pulses symmetric. RESPIRATORY/CHEST: Lungs clear. GASTROINTESTINAL: Abdomen soft, non-tender, nondistended. No hepato-splenomegaly , or palpable masses. GENITOURINARY: Without palpable bladder distension. MUSCULOSKELETAL: Extremities with 3+ edema on all extremities LYMPHATICS: Not examined NEUROLOGICAL: Unresponsive. Absent corneal reflexes. Absent gag. Does not withdraw to noxious stimuli. PSYCHIATRIC: Unable to evaluate due to level of responsiveness. . . Diagnostic Tests Laboratory Laboratory Tests Test 06/10/17 12:55 06/10/17 20:45 06/11/17 08:00 06/11/17 09:00 Blood Urea Nitrogen 82 MG/DL (7-18) Creatinine 5.72 MG/DL (0.60-1.30) Random Glucose 268 MG/DL (74-106) Calcium Level 8.6 MG/DL (8.5-10.1) Sodium Level 143 MEQ/L (136-145) Potassium Level 4.5 MEQ/L (3.5-5.1) Chloride Level 103 MEQ/L (98-107) Carbon Dioxide Level 28.2 MEQ/L (21.0-32.0) Anion Gap 12 MEQ/L (5-15) Estimat Glomerular Filtration Rate 10 ML/MIN (>89) Urine Color YELLOW (YELLW/STRAW) Urine Turbidity HAZY (CLEAR) Urine pH 5.5 (5.0-8.5) Urine Specific [place] 1.015 (1.002-1.035) Urine Protein 100 mg/dL (NEG-TRACE) Urine Glucose (UA) 300 mg/dL (NEG) Urine Ketones NEG mg/dL (NEG) Urine Occult Blood MOD (NEG) Urine Nitrite NEG (NEG) Urine Bilirubin NEG (NEG) Urine Urobilinogen LESS THAN 2.0 MG/DL (LESS Urine Leukocyte Esterase LARGE (NEG) Urine RBC 31 /hpf (0-3) Urine WBC 38 /hpf (0-5) Urine Squamous Epithelial Cells <1 /hpf (0-5) Urine Amorphous Sediment RARE Urine Bacteria OCC /hpf (NONE) Urine Mucus FEW /lpf (OCC) Microscopic Urinalysis Comment CATH-CULTURE IND White Blood Count 20.9 TH/MM3 (4.0-11.0) Red Blood Count 4.20 MIL/MM3 (4.50-5.90) Hemoglobin 12.8 GM/DL (13.0-17.0) Hematocrit 38.0 % (39.0-51.0) Mean Corpuscular Volume 90.6 FL (80.0-100.0) Mean Corpuscular Hemoglobin 30.4 PG (27.0-34.0) Mean Corpuscular Hemoglobin Concent 33.6 % (32.0-36.0) Red Cell Distribution Width 14.1 % (11.6-17.2) Platelet Count 206 TH/MM3 (150-450) Mean Platelet Volume 9.1 FL (7.0-11.0) Neutrophils (%) (Auto) 91.3 % (16.0-70.0) Lymphocytes (%) (Auto) 2.8 % (9.0-44.0) Monocytes (%) (Auto) 5.0 % (0.0-8.0) Eosinophils (%) (Auto) 0.8 % (0.0-4.0) Basophils (%) (Auto) 0.1 % (0.0-2.0) Neutrophils # (Auto) 19.1 TH/MM3 (1.8-7.7) Lymphocytes # (Auto) 0.6 TH/MM3 (1.0-4.8) Monocytes # (Auto) 1.0 TH/MM3 (0-0.9) Eosinophils # (Auto) 0.2 TH/MM3 (0-0.4) Basophils # (Auto) 0.0 TH/MM3 (0-0.2) CBC Comment AUTO DIFF Differential Total Cells Counted 100 Neutrophils % (Manual) 86 % (16-70) Band Neutrophils % 1 % (0-6) Lymphocytes % 6 % (9-44) Monocytes % 4 % (0-8) Neutrophils # (Manual) 18.8 TH/MM3 (1.8-7.7) Metamyelocytes 3 % (0-1) Differential Comment FINAL DIFF MANUAL Atypical Lymphocytes % (0-0) Platelet Estimate NORMAL (NORMAL) Platelet Morphology Comment NORMAL (NORMAL) Red Cell Morphology Comment NORMAL (NORMAL) Stool C. difficile Toxin (PCR) NEGATIVE (NEGATIVE) Stl C. difficile Toxin Epiderm 027 PRESUMPTIVE NEGATIVE Test 06/12/17 03:40 06/12/17 05:35 White Blood Count 26.1 TH/MM3 (4.0-11.0) Red Blood Count 4.66 MIL/MM3 (4.50-5.90) Hemoglobin 14.0 GM/DL (13.0-17.0) Hematocrit 42.0 % (39.0-51.0) Mean Corpuscular Volume 90.2 FL (80.0-100.0) Mean Corpuscular Hemoglobin 30.1 PG (27.0-34.0) Mean Corpuscular Hemoglobin Concent 33.4 % (32.0-36.0) Red Cell Distribution Width 14.4 % (11.6-17.2) Platelet Count 246 TH/MM3 (150-450) Mean Platelet Volume 9.0 FL (7.0-11.0) Neutrophils (%) (Auto) 92.5 % (16.0-70.0) Lymphocytes (%) (Auto) 2.4 % (9.0-44.0) Monocytes (%) (Auto) 4.8 % (0.0-8.0) Eosinophils (%) (Auto) 0.0 % (0.0-4.0) Basophils (%) (Auto) 0.3 % (0.0-2.0) Neutrophils # (Auto) 24.1 TH/MM3 (1.8-7.7) Lymphocytes # (Auto) 0.6 TH/MM3 (1.0-4.8) Monocytes # (Auto) 1.3 TH/MM3 (0-0.9) Eosinophils # (Auto) 0.0 TH/MM3 (0-0.4) Basophils # (Auto) 0.1 TH/MM3 (0-0.2) CBC Comment AUTO DIFF Differential Total Cells Counted 100 Neutrophils % (Manual) 87 % (16-70) Lymphocytes % 4 % (9-44) Monocytes % 6 % (0-8) Neutrophils # (Manual) 23.5 TH/MM3 (1.8-7.7) Metamyelocytes 1 % (0-1) Myelocytes 1 % (0-0) Promyelocytes 1 % (0-0) Differential Comment FINAL DIFF MANUAL Toxic Granulation 1+ (NORMAL) Toxic Vacuolation PRESENT (NONE SEEN) Platelet Estimate NORMAL (NORMAL) Platelet Morphology Comment NORMAL (NORMAL) Red Cell Morphology Comment NORMAL (NORMAL) Blood Urea Nitrogen 166 MG/DL (7-18) Creatinine 9.45 MG/DL (0.60-1.30) Random Glucose 288 MG/DL (74-106) Calcium Level 9.1 MG/DL (8.5-10.1) Sodium Level 141 MEQ/L (136-145) Potassium Level 6.8 MEQ/L (3.5-5.1) Chloride Level 100 MEQ/L (98-107) Carbon Dioxide Level 24.7 MEQ/L (21.0-32.0) Anion Gap 16 MEQ/L (5-15) Estimat Glomerular Filtration Rate 6 ML/MIN (>89) Ammonia LESS THAN 10 MCMOL/L Blood Gas Puncture Site FEM Blood Gas Patient Temperature 98.6 Blood Gas HCO3 21 mmol/L (22-26) Blood Gas Base Excess -2.0 mmol/L (-2-2) Blood Gas Oxygen Saturation 96 % (90-100) Arterial Blood pH 7.47 (7.380-7.420) Arterial Blood Partial Pressure CO2 30 mmHg (38-42) Arterial Blood Partial Pressure O2 108 mmHg (61-120) Arterial Blood Oxygen Content 19.8 Vol % (12.0-20.0) Arterial Blood Carboxyhemoglobin 0.7 % (0-4) Arterial Blood Methemoglobin 1.5 % (0-2) Blood Gas Hemoglobin 14.6 G/DL (12.0-16.0) Oxygen Delivery Device VENTILATOR Blood Gas Ventilator Setting PRVC/AC Blood Gas Inspired Oxygen 35 % . Result Diagram: 06/12/17 0340 06/12/17 034 Microbiology Microbiology Date/Time Source Procedure Growth Status 4/2/18 20:45 Blood Peripheral Aerobic Blood Culture - Preliminary NO GROWTH IN 2 DAYS Resulted 06/10/17 20:45 Blood Peripheral Anaerobic Blood Culture - Preliminary NO GROWTH IN 2 DAYS Resulted 06/10/17 20:30 Blood Peripheral Aerobic Blood Culture - Preliminary NO GROWTH IN 2 DAYS Resulted 06/10/17 20:30 Blood Peripheral Anaerobic Blood Culture - Preliminary NO GROWTH IN 2 DAYS Resulted 06/10/17 19:30 Sputum Endotracheal Gram Stain - Final Complete 06/10/17 19:30 Sputum Endotracheal Sputum Culture - Final MODERATE GROWTH NORMAL RESPIRATORY KIM Complete 06/10/17 20:45 Urine Catheterized Urine Urine Culture - Final NO GROWTH IN 48 HOURS. Complete . Imaging Last Impressions Chest X-Ray 06/12/17 0600 Signed Impressions: Service Date/Time: Monday, June 12, 2017 03:02 - CONCLUSION: No significant interval change Jakob Carter MD Brain Flow Nuclear Medicine 06/10/17 0000 Signed Impressions: Service Date/Time: Saturday, June 10, 2017 12:56 - CONCLUSION: There is some cortical activity seen in the left hemisphere and activity is seen in the sagittal sinus. Therefore, this study does not meet the nuclear imaging criteria for brain . Terrell Dozier MD Abdomen/Pelvis CT 06/10/17 0000 Signed Impressions: Service Date/Time: Saturday, June 10, 2017 13:58 - CONCLUSION: 1. Left lower lobe consolidation. Small bilateral pleural effusions. 2. No focal abnormalities seen in the liver on this noncontrast study. 3. Large left inguinal hernia containing portions of the sigmoid colon. No dilated loops of small or large bowel. Terrell Dozier MD Renal Ultrasound 06/05/17 0000 Signed Impressions: Service Date/Time: Monday, June 05, 2017 11:50 - CONCLUSION: No hydronephrosis Jakob Carter MD Head CT 06/04/17 1555 Signed Impressions: Service Date/Time: Sunday, June 04, 2017 16:42 - CONCLUSION: Normal examination. Ludin Woods MD . Assessment and Plan Disease Oriented Problem List: (1) Encephalopathy Comment: Severe. No brain stem reflexes. Minimal brain flow. . (2) Septic shock (3) Cardiorespiratory arrest (4) Respiratory failure Comment: pneumonia (5) Acute kidney injury Comment: Requiring hemodialysis. . Symptom Scale: (1) Dyspnea 0-10 Scale: Unable to quantify Comment: Managed on the ventilator. . Pertinent Non-Medical Issues Psychosocial:Lives with . On disablility. No children Spiritual:Yarsanism Legal: Per , she had confirmed with his sister, pt has no advance directives. Ethical issues impacting care:Patient is incapacitated and has no reasonable probability of recovering capacity. . Important Contacts Edith Silva [phone] . Prognosis Patient has a history of COPD, chronic pain that was found by to be unresponsive. EVAC found patient to be in asystole, where CPR was initiated and patient intubated. Now with severe anoxic encephalopathy. Is not breathing over vent. There is loss of brain stem reflexes. Brain flow study showing minimal flow. Chances of survival are bleak. Essentially no chance of meaningful recovery. . Code Status: Alternative Code Plan == Code Status : ALTERNATE CODE -- No chest compressions; No shock == Decision making: Patient is incapacitated to make his own health care decisions. There is no reasonable probability that he will regain capacity to do so. No advance directive. Pt's -- Edith Silva -- is proxy healthcare decision maker. == Symptoms * Pain: Uncertain if patient is able to experience pain at this time given extent of anoxic brain injury. * Dyspnea- currently managed with mechanical ventilation. Uncertain if patient is able to experience subjective shortness of breath given extent of anoxic brain injury. == Goals of medical treatment: Family has opted for ALT CODE STATUS -- No chest compressions; No shock. They plan on withdrawing life support shortly after the patient's brother Abner visits on Saturday. == Plan summary... * Now ALT CODE -- no chest compressions; no shock * One more dialysis treatment on Saturday06/14/17 * Patient's brother -- Abner -- expected to arrive on Saturday evening or Saturday. 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 Withdrawal of life support should be done in conjunction with organ procurement organization. . . Time Spent Total Floor Time (mins): 75 (Total floor time included chart review; patient exam; discussion with Dr. Arreaga; above referenced family meeting; documentation. ) Face to Face Time (mins): 10 >50% Counseling/Coord of Care: Yes Attestation To help prompt me to consider important information that might be impacting today's encounter and assessment, information from prior notes written by myself or my colleagues may have been "brought forward" into today's note. My signature on this note, however, is an attestation that I personally performed the exam, history, and/or decision-making noted today, and, unless otherwise indicated, the interactions with patient, family, and staff as well as the review of records all occurred today. I also attest that the listed assessment and stated plan reflect my best clinical judgment today based on the combination of historical information, prior notes, and today's exam/ interactions. When time spent is documented, it refers only to time spent today by the signer, or if indicated, combined time spent today by collaborating physician/nurse practitioner. . Jesse Devlin MD Jun 12, 2017 14:47
--- NOTE | 2017-06-12 15:00 | HHI.CCPN ---
Subjective Remarks/Hospital Course 06/04: 56 yo Male with PMH of COPD on 2L home O2, HTN, DM who presented to [facility] ED following asystolic cardiac arrest. states he was in bed most the day. She tried to get him to seek medical attention but he initially refused. She noted that he was having respiratory difficulties so she made preparations to call [facility]. She went into check on him again and he was unresponsive. He was in asystole when [facility] arrived. had not administered bystander CPR. He was intubated in the field and CPR was initiated. Reportedly ROSC was achieved after 9 minutes of CPR per [facility]. He was hypotensive and was started on dopamine per [facility] which was continued in the ED and is currently running at 20 mcg/kg/min. Glucose was 145. His GCS was 3 on arrival and he had anisocoria. However as per the paramedics the said he has history of unequal pupil and the left one being fixed and nonreactive (however she denied this when I inquired about it later that evening??) states he had PFT's Wed per Dr. Eli and has had cough ever since. Had not complained of chest pain but had been having headaches and R leg pain since Lortab was recently discontinued by his physician. 06/05: Remains sedated, orally intubated on mechanical ventilation. Was on neuromuscular blockade which is currently being discontinued. Urine output 10 cc overnight. Given fluid bolus now and renal ultrasound ordered. 06/06: Remains sedated, orally intubated on mechanical ventilation. On propofol for sedation. Off neuromuscular blockade since yesterday. Essentially anuric renal failure. 06/07: Off sedation for more than 24 hours, remains comatose, orally intubated on mechanical ventilation. Vas-Cath placed and started hemodialysis today. 06/08: Remains comatose off sedation, orally intubated on mechanical ventilation. 06/09: Remains comatose off sedation, orally intubated on mechanical ventilation. Awaiting EEG this morning. Tube feeds held this morning for high residuals. Dialyzed yesterday. 06/10: Remains, dose of sedation. Being dialyzed. Consulted neurology for brain eval. Flow study ordered. 06/11: T-max 99.1. No change in neurological status. Cerebral blood flow revealed some cortical activity. Repeat study planned in the near future per neurology recommendations. Reglan instituted yesterday every 8 hours Glucerna initiated at trickle feeds. 06/12: No neurological change overnight. The patient remains comatose. The patient was noted to have a potassium of 6.8 early this a.m., no ectopy noted. The patient received Kayexalate and calcium and insulin and D50. Patient was dialyzed early this am. Repeat BMP pending. Tube feeds changed from Glucerna to Nepro. Patient intolerant of tube feeds. discussion with Dr. Devlin palliative care deboning team leader family awaiting arrival of patient's brother. Patient's CODE STATUS changed to DNR. Plan for possible institution of comfort care measures on Saturday. Objective Vital Signs Date Time Temp Pulse Resp B/P (MAP) Pulse Ox O2 Delivery O2 Flow Rate FiO2 06/12/17 11:18 94 35 06/12/17 09:45 98.6 93 20 125/85 (98) Intake and Output 06/12/17 06/12/17 06/13/17 08:00 16:00 00:00 Intake Total 20 ml Output Total 470.0 ml 3000 ml Balance -450.0 ml -3000 ml Result Diagram: 06/12/17 0340 06/12/17 0340 Other Results Microbiology Date/Time Source Procedure Growth Status 06/10/17 19:30 Sputum Endotracheal Gram Stain - Final Complete 06/10/17 19:30 Sputum Endotracheal Sputum Culture - Final MODERATE GROWTH NORMAL RESPIRATORY KIM Complete 06/10/17 20:45 Urine Catheterized Urine Urine Culture - Final NO GROWTH IN 48 HOURS. Complete Laboratory Tests Test 06/12/17 05:35 Blood Gas Puncture Site FEM Blood Gas Patient Temperature 98.6 Blood Gas HCO3 21 mmol/L (22-26) Blood Gas Base Excess -2.0 mmol/L (-2-2) Blood Gas Oxygen Saturation 96 % (90-100) Arterial Blood pH 7.47 (7.380-7.420) Arterial Blood Partial Pressure CO2 30 mmHg (38-42) Arterial Blood Partial Pressure O2 108 mmHg (61-120) Arterial Blood Oxygen Content 19.8 Vol % (12.0-20.0) Arterial Blood Carboxyhemoglobin 0.7 % (0-4) Arterial Blood Methemoglobin 1.5 % (0-2) Blood Gas Hemoglobin 14.6 G/DL (12.0-16.0) Oxygen Delivery Device VENTILATOR Blood Gas Ventilator Setting PRVC/AC Blood Gas Inspired Oxygen 35 % Objective Remarks GENERAL: Obese male who is orotracheally intubated. Remains comatose off all sedation SKIN: Centrally warm, peripherally cool with some mottling of his knees bilaterally HEAD: Atraumatic. Normocephalic. EYES: R pupil 4-5 mm and fixed, L pupil 8 mm and nonreactive. No scleral icterus. No injection or drainage. ENT: No nasal bleeding or discharge. Mucous membranes pale. NECK: Trachea midline. No JVD. CARDIOVASCULAR: Regular rate and rhythm, sinus rhythm on monitor. No murmurs rubs or gallops. RESPIRATORY: Orally intubated on mechanical ventilation, good air entry bilaterally, scattered rhonchi, no wheezing or crackles. GASTROINTESTINAL: Abdomen soft, non-tender, nondistended. Large L inguinal hernia, not incarcerated. : urinary catheter in place MUSCULOSKELETAL: Extremities without clubbing, cyanosis, 1+ peripheral edema. NEUROLOGICAL: Comatose, orally intubated. 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 Absent gag response, absent doll's eye, absent corneal reflex, absent spontaneous respirations. A/P Assessment and Plan NEURO: Coma Anoxic Encephalopathy Depression Peripheral neuropathy Hard of hearing Hyperammonemia CT brain - normal 2 cerebral brain flow study-some cortical activity seen in left hemisphere and sagittal sinus 4 Neurology following Stop Coumadin currently. We will attempt to keep normothermic Hyperammonemia with level 52. Will avoid lactulose at this point due to metabolic derangements. Recent [place] Act for depression. Tylenol, salicylate negative. EtOH negative. Remains comatose. Suspect severe anoxic encephalopathy. Neurology consulted for brain evaluation. Brain flow study ordered with nuclear medicine. Hold gabapentin 300 daily 06/12: ammonia level- < 10 RESP: Acute hypercapnic and hypoxemic respiratory failure Aspiration pneumonia Acute COPD exacerbation Obstructive sleep apnea Continue mechanical ventilation Status post Therapeutic and diagnostic bronchoscopy with removal of copious mucopurulent secretions by Dr. Gomez Ventilator bundle DuoNeb every 4 hours. Albuterol every 2 hours as needed Solu-Medrol 60 mg IV every 6 hours Antibiotics as per below 4/2: CPAP trial initiated patient failed not breathing over the vent on no sedation CV: Asystolic cardiac arrest suspect secondary to severe COPD exacerbation with hypercapnia Type II NSTEMI Lactic acidemia - secondary to cardiac arrest. Essential hypertension Resumed propranolol 20 mg twice daily Mild troponin elevation secondary to type II NSTEMI Art line placed with Rene Trac for hemodynamic monitoring. Discontinued 06/11 GI: Acute ischemic hepatitis tube feeds as tolerated 06/11 changed to Glucerna -we will re-initiate trickle feeds 06/10 Reglan every 8 hours Trend LFTs FEN/RENAL: Acute kidney injury Anuric despite optimization of hemodynamic parameters on Flotrac. Likely secondary to ischemic ATN Renal ultrasound with no hydronephrosis Monitor electrolytes every 6 hours during cooling. Replace as indicated. Hold Celebrex and other NSAIDs Nephrology consulted. Started hemodialysis 06/07. Vas-Cath placed in right IJ ID: Acute community acquired pneumonia versus aspiration pneumonia Severe sepsis Follow-up results of bronchial washing, blood culture. Unable to obtain urine therefore unable to obtain u/a or urine legionella or pneumococcal antigen. Influenza negative Antibiotics per ID. Growing Haemophilus influenza and sputum. Marilynn intertrigo bilateral groin nystatin topical HEME: Monitor CBC ENDO: Type II Diabetes mellitus Monitor bedside glucose every 6 hours and initiate low-dose insulin sliding scale as indicated PROPH: Heparin 5000 units subcutaneous every 12 hours for DVT prophylaxis. Famotidine for stress ulcer prophylaxis ACCESS: Left subclavian central venous line placed by ED physician 06/04. Right radial art line placed 06/04. Right femoral heat exchange catheter placed 06/04, removed 06/08 Patient's is uncertain if he has a living will. She says she believes he may have written up a living will previously and that his sister may have it; she will investigate further. Patient is full code at this time. On 06/04 Dr. Gomez discussed with patient's that neurologic prognosis appears poor at this point. Dr. Gomez also spoke with patient's sister Milagros and then his brother Abner Krueger on phone. Multiple questions answered. They are aware he is very critically ill with guarded neurologic prognosis and plan to come down from [place] this week. Dr. Gomez discussed with him that we will have limited information about his neurologic prognosis over the next several days as we complete rewarming process and subsequent sedation discontinuation. 06/12 Palliative Care deboning team leader Dr. Devlin, conference with family. Awaiting arrival of patient's brother and then possible institution of comfort care measures on Saturday D/W Dr. Devlin, FORGING MACHINE HAND at bedside (Janet) my billing statement This patient remains critically ill with one or more organ systems which are or may become a threat to life. I have spent in excess of 33 minutes discontinuously in the care and management of this patient. This time is exclusive of procedures, and includes, but is not limited to, evaluation of the patient, review of the medical record, discussions with family, consultants, nursing staff, or respiratory therapy, and documentation in the medical record. Physician Milagros Monahan MD Jun 12, 2017 15:00
[2017-06-12] MEDS: cefTRIAXone INJ 2,000 MG in SODIUM CHLORIDE 0.9% INJ 100 ML IV SCH (15:44)
--- NOTE | 2017-06-12 16:09 | HHI.NPPN ---
Subjective Renal Failure: Acute History of Present Illness Patient is a 56 yo Male with PMH of COPD on O2 dependent, HTN and DM. Presented to [facility] ED following asystolic cardiac arrest. Per records patient has had a cough for over a week and just not feeling well. Reportedly ROSC was achieved after 9 minutes of CPR per [facility]. Patient is intubated and sedated currently. On therapeutic cool therapy. Nephrology was consulted for acute kidney injury with a creatinine of 3.78. UOP approximately 10 ml overnight and 10 ml today. Patient has received a fluid bolus and is currently on a bicarb gtt. Patient does not have a past medical history of CKD. Additional Remarks Patient remains intubated and unresponsive. (Leyla Tello) Review of Systems General General Remarks Unable to do ROS as patient is intubated (Leyla Tello) Objective Data Data 06/12/17 06/13/17 19:00 07:00 Intake Total 110 ml Output Total 3220.0 ml Balance -3110.0 ml Intake IV Total 110 ml Tube Feeding Residual Discard 220.0 ml Hemodialysis 3000 ml Vital Signs Date Time Temp Pulse Resp B/P (MAP) Pulse Ox O2 Delivery O2 Flow Rate FiO2 06/12/17 16:00 99 06/12/17 16:00 35 06/12/17 16:00 99.5 99 20 164/96 (118) 93 06/12/17 15:18 94 35 06/12/17 15:01 99.3 93 20 174/105 (128) 93 06/12/17 15:00 99.3 93 20 185/109 (134) 92 06/12/17 14:30 99.3 92 20 167/107 (127) 93 06/12/17 14:00 90 06/12/17 14:00 99.1 90 20 158/99 (118) 92 06/12/17 13:30 99.1 100 20 174/105 (128) 93 06/12/17 13:00 99.1 98 20 171/107 (128) 93 06/12/17 12:30 99.1 96 20 157/103 (121) 94 06/12/17 12:15 99.3 96 20 159/102 (121) 93 06/12/17 12:00 99.4 95 20 126/93 (104) 94 06/12/17 12:00 95 06/12/17 12:00 35 06/12/17 11:45 99.1 94 126/92 (103) 94 06/12/17 11:30 99.1 93 125/92 (103) 94 06/12/17 11:18 94 35 06/12/17 11:15 99.0 93 127/94 (105) 94 06/12/17 11:00 99.0 93 127/93 (104) 94 06/12/17 10:45 99.0 93 131/92 (105) 94 06/12/17 10:30 98.8 93 132/89 (103) 94 06/12/17 10:15 98.8 93 128/88 (101) 94 06/12/17 10:00 93 06/12/17 10:00 98.8 93 121/85 (97) 93 06/12/17 09:45 98.6 93 20 125/85 (98) 94 06/12/17 09:30 98.6 95 20 125/82 (96) 92 06/12/17 09:15 98.4 92 20 101/69 (80) 92 06/12/17 09:00 98.4 93 20 158/96 (116) 94 06/12/17 08:33 94 35 06/12/17 08:30 98.6 95 20 165/97 (119) 94 06/12/17 08:00 98.5 94 20 156/92 (113) 93 06/12/17 08:00 35 06/12/17 08:00 94 06/12/17 07:30 98.4 94 20 154/95 (114) 93 06/12/17 07:00 98.4 94 20 160/92 (114) 92 06/12/17 06:00 90 06/12/17 04:00 35 06/12/17 04:00 82 06/12/17 04:00 98.9 82 20 149/91 (110) 94 06/12/17 03:15 94 35 06/12/17 02:00 97 06/12/17 00:41 98 35 06/12/17 00:00 35 06/12/17 00:00 97 06/12/17 00:00 100.4 97 20 175/100 (125) 92 06/11/17 22:00 96 06/11/17 20:45 94 35 06/11/17 20:00 103 06/11/17 20:00 99.7 103 20 187/102 (130) 92 06/11/17 20:00 35 06/11/17 18:00 99.1 107 20 172/93 (119) 93 06/11/17 18:00 107 06/11/17 17:30 106 06/11/17 17:30 99.0 106 20 171/96 (121) 92 06/11/17 17:00 99.0 105 20 176/96 (122) 92 06/11/17 17:00 105 06/11/17 16:30 104 06/11/17 16:30 98.8 104 20 177/97 (123) 92 06/11/17 16:26 93 35 (Leyla Tello) -: 06/12/17 0340 06/12/17 0340 Tubes & Lines: Vas-Cath, Bruner (Leyla Tello) Physical Exam General Appearance: No Acute Distress, Obese Appearance Remarks intubated (Leyla Tello) Throat Throat Exam: Oral Mucosa [place] & Moist (Leyla Tello) Pulmonary Resp Exam: Breath Sounds Equal, No Distress (Leyla Tello) Cardiology CV Exam: Regular (Leyla Tello) Gastrointestinal/Abdomen GI Exam: Soft, Non-Tender, Distended (Leyla Tello) Genitourinary Remarks minimal uop (Leyla Tello) Integumentary Skin Exam: Clear, Warm, Dry (Leyla Tello) Extremeties Extremities Exam: Moderate Edema (Leyla Tello) Neurologic Neuro Exam: Sedated (Leyla Tello) Assessment/Plan Problem List: (1) Acute kidney injury ICD Codes: N17.9 - Acute kidney failure, unspecified Plan: Acute kidney injury with a creatinine of 3.78 most likely ATN from cardiopulmonary arrest. FeNA at 0.54 % suggestive of prerenal state but unlikely with significant rise in creatinine. Renal US with no acute findings HD started on 06/07 via vas cath UOP remain minimal Plan Avoid nephrotoxins as possible Renal dose antibiotics Continue to monitor UOP and BMP HD today with 3 liters removed Hyperkalemia with Kayexalate, Insulin, and calcium given Plan for possible comfort care measures on Saturday, family still to arrive (2) Respiratory failure ICD Codes: J96.90 - Respiratory failure, unspecified, unspecified whether with hypoxia or hypercapnia Plan: sedated and intubated (3) Cardiorespiratory arrest ICD Codes: I46.9 - Cardiac arrest, cause unspecified Status: Acute (Leyla Tello) Problem List: (1) Acute kidney injury ICD Codes: N17.9 - Acute kidney failure, unspecified Plan: Acute kidney injury with a creatinine of 3.78 most likely ATN from cardiopulmonary arrest. FeNA at 0.54 % suggestive of prerenal state but unlikely with significant rise in creatinine. Renal US with no acute findings HD started on 06/07 via vas cath UOP remain minimal Plan Avoid nephrotoxins as possible Renal dose antibiotics Continue to monitor UOP and BMP HD today with 3 liters removed Hyperkalemia with Kayexalate, Insulin, and calcium given Plan for possible comfort care measures on Saturday, family still to arrive. Patient seen and examined, agree with above. Patient was seen in AM, during HD. (2) Respiratory failure ICD Codes: J96.90 - Respiratory failure, unspecified, unspecified whether with hypoxia or hypercapnia Plan: sedated and intubated (3) Cardiorespiratory arrest ICD Codes: I46.9 - Cardiac arrest, cause unspecified Status: Acute (Jana Martin MD) Leyla Tello Jun 12, 2017 16:09 Jana Martin MD Jun 12, 2017 18:10
[2017-06-12 17:35] LABS: BICARBONATE 24.1 MEQ/L (21.0-32.0); CREATININE 8.02 MG/DL (0.60-1.30)
--- NOTE | 2017-06-12 18:05 | HHI.PR ---
Review/Management Diagnosis severe anoxic encephalopathy. Absent brain stem functions on exam. Prognosis very poor Plan repeat cerebral blood flow tomorrow Diagnosis/Plan: Subjective Subjective Comments No acute events reported Active Medications Current Medications Medications (Trade) Dose Ordered Sig/Tiago Route Start Time Stop Time Status Last Admin Dopamine HCl/ Dextrose 500 ml @ 0 mls/hr TITRATE PRN IV 06/04/17 16:00 06/04/17 17:48 Miscellaneous Information 1 Q361D XX 06/04/17 17:45 (Chlorhexidine 2% Cloth) Taper DAILY@04 TOP 06/05/17 04:00 06/01/18 03:59 06/12/17 03:12 (Chlorhexidine 2% Cloth) 3 pack UNSCH PRN TOP 06/04/17 17:45 (Azra-Colace) 1 tab BID PO 06/04/17 21:00 06/12/17 08:10 (Milk Of Magnesia Liq) 30 ml Q12H PRN PO 06/04/17 17:45 (Senokot) 17.2 mg Q12H PRN PO 06/04/17 17:45 (Dulcolax Supp) 10 mg DAILY PRN RECTAL 06/04/17 17:45 (Lactulose Liq) 30 ml DAILY PRN PO 06/04/17 17:45 Azithromycin 500 mg/Sodium Chloride 250 ml @ 250 mls/hr Q24H IV 06/04/17 20:00 06/11/17 20:11 (Brethine Inj) 1 mg UNSCH PRN SQ 06/04/17 17:45 (Albuterol Neb) 2.5 mg Q2HR NEB PRN INH 06/04/17 19:30 06/06/17 05:17 (Peridex 0.12% Liq) 15 ml BID@08,20 MT 06/05/17 08:00 06/12/17 08:11 (Ativan Inj) 1 mg Q1H PRN IV PUSH 06/04/17 21:00 Midazolam HCl 100 ml @ 2 mls/hr TITRATE PRN IV 06/04/17 21:00 06/04/17 23:13 (NS Flush) 2 ml BID IV FLUSH 06/04/17 21:00 06/12/17 13:26 (NS Flush) 2 ml UNSCH PRN IV FLUSH 06/04/17 21:00 06/09/17 08:11 Miscellaneous Information 0 ml @ 0 mls/hr UNSCH IV 06/04/17 21:00 (Heparin Inj) 5,000 units Q12HR SQ 06/04/17 21:00 06/12/17 08:10 Norepinephrine Bitartrate 4 mg/ Sodium Chloride 250 ml @ 7.5 mls/hr TITRATE PRN IV 06/04/17 22:15 06/09/17 22:18 (D50w (Vial) Inj) 50 ml UNSCH PRN IV PUSH 06/05/17 01:45 (Glucagon Inj) 1 mg UNSCH PRN OTHER 06/05/17 01:45 (NovoLOG SUPPLEMENTAL SCALE) 1 Q6H SQ 06/05/17 04:00 06/12/17 15:44 (Pepcid) 10 mg BID PO 06/05/17 21:00 06/12/17 08:10 Propofol 100 ml @ 3.12 mls/hr TITRATE PRN IV 06/05/17 11:30 06/06/17 04:29 (Mycostatin Cream) 1 applic Q6HR TOPICAL 06/05/17 12:00 06/12/17 12:00 (SoluMEDROL INJ) 60 mg Q6H IV PUSH 06/05/17 13:00 06/12/17 13:17 (Trandate Inj) 10 mg Q4H PRN IV PUSH 06/05/17 19:45 06/12/17 13:31 (Inderal) 20 mg BID PO 06/06/17 13:00 06/12/17 08:10 Ceftriaxone Sodium 2000 mg/ Sodium Chloride 100 ml @ 200 mls/hr Q24H IV 06/06/17 16:00 06/12/17 15:44 Sodium Chloride 1,000 ml @ 0 mls/hr Q0M PRN OTHER 06/07/17 10:46 06/08/17 14:37 (Heparin Inj) 8,000 units UNSCH PRN IV FLUSH 06/07/17 11:00 Sodium Chloride 1,000 ml @ 200 mls/hr Q5H PRN IV 06/07/17 10:46 Sodium Chloride 1,000 ml @ 0 mls/hr Q0M PRN OTHER 06/07/17 10:46 (Mannitol Inj) 12.5 gm UNSCH PRN IV 06/07/17 11:00 Albumin Human 100 ml @ 60 mls/hr UNSCH PRN IV 06/07/17 11:00 06/10/17 11:24 (NS Flush) 5 ml UNSCH PRN IV FLUSH 06/07/17 11:00 06/08/17 14:38 (Heparin Inj) UNSCH PRN .XX 06/07/17 11:00 06/12/17 11:34 (Gentamicin Inj) 20 mg UNSCH PRN OTHER 06/07/17 11:00 06/12/17 11:34 (Zofran Inj) 4 mg UNSCH PRN IV PUSH 06/07/17 11:00 (Tylenol) 650 mg UNSCH PRN PO 06/07/17 11:00 (Benadryl) 25 mg UNSCH PRN PO 06/07/17 11:00 (Nitrostat Sl) 0.4 mg UNSCH PRN SL 06/07/17 11:00 (Catapres) 0.1 mg UNSCH PRN PO 06/07/17 11:00 06/12/17 05:26 (Gelfoam 12 Mm/7 Mm Top) 1 foam UNSCH PRN TOP 06/07/17 11:00 (Phoslo) 667 mg TID PO 06/07/17 13:00 06/12/17 13:16 (Reglan Inj) 5 mg Q8H IV 06/10/17 17:00 06/12/17 08:09 (Lacrilube Opht Oint) 1 applic Q12HR EACH EYE 06/11/17 21:00 06/12/17 09:00 (Apresoline Inj) 10 mg Q4H PRN IV PUSH 06/11/17 11:45 06/12/17 15:38 (Levemir Inj) 7 units BID SQ 06/11/17 21:00 06/12/17 08:11 Allergies Allergies Coded Allergies quetiapine (Unverified Adverse Reaction, Severe, Agitation, 06/04/17) Exam I&O / VS 06/12/17 06/12/17 06/13/17 15:00 23:00 07:00 Intake Total 110 ml Output Total 3220.0 ml Balance -3110.0 ml Intake IV Total 110 ml Tube Feeding Residual Discard 220.0 ml Hemodialysis 3000 ml Vital Signs Date Time Temp Pulse Resp B/P (MAP) Pulse Ox O2 Delivery O2 Flow Rate FiO2 06/12/17 16:00 99 06/12/17 16:00 35 06/12/17 16:00 99.5 99 20 164/96 (118) 93 06/12/17 15:18 94 35 06/12/17 15:01 99.3 93 20 174/105 (128) 93 06/12/17 15:00 99.3 93 20 185/109 (134) 92 06/12/17 14:30 99.3 92 20 167/107 (127) 93 06/12/17 14:00 90 06/12/17 14:00 99.1 90 20 158/99 (118) 92 06/12/17 13:30 99.1 100 20 174/105 (128) 93 06/12/17 13:00 99.1 98 20 171/107 (128) 93 06/12/17 12:30 99.1 96 20 157/103 (121) 94 06/12/17 12:15 99.3 96 20 159/102 (121) 93 06/12/17 12:00 99.4 95 20 126/93 (104) 94 06/12/17 12:00 95 06/12/17 12:00 35 06/12/17 11:45 99.1 94 126/92 (103) 94 06/12/17 11:30 99.1 93 125/92 (103) 94 06/12/17 11:18 94 35 06/12/17 11:15 99.0 93 127/94 (105) 94 06/12/17 11:00 99.0 93 127/93 (104) 94 06/12/17 10:45 99.0 93 131/92 (105) 94 06/12/17 10:30 98.8 93 132/89 (103) 94 06/12/17 10:15 98.8 93 128/88 (101) 94 06/12/17 10:00 93 06/12/17 10:00 98.8 93 121/85 (97) 93 06/12/17 09:45 98.6 93 20 125/85 (98) 94 06/12/17 09:30 98.6 95 20 125/82 (96) 92 06/12/17 09:15 98.4 92 20 101/69 (80) 92 06/12/17 09:00 98.4 93 20 158/96 (116) 94 06/12/17 08:33 94 35 06/12/17 08:30 98.6 95 20 165/97 (119) 94 06/12/17 08:00 98.5 94 20 156/92 (113) 93 06/12/17 08:00 35 06/12/17 08:00 94 06/12/17 07:30 98.4 94 20 154/95 (114) 93 06/12/17 07:00 98.4 94 20 160/92 (114) 92 06/12/17 06:00 90 06/12/17 04:00 35 06/12/17 04:00 82 06/12/17 04:00 98.9 82 20 149/91 (110) 94 06/12/17 03:15 94 35 06/12/17 02:00 97 06/12/17 00:41 98 35 06/12/17 00:00 35 06/12/17 00:00 97 06/12/17 00:00 100.4 97 20 175/100 (125) 92 06/11/17 22:00 96 06/11/17 20:45 94 35 06/11/17 20:00 103 06/11/17 20:00 99.7 103 20 187/102 (130) 92 06/11/17 20:00 35 Exam Comments nonresponsive to voice Pupil fixed at 4 mm nonreactiv No extra-occular motility to occulocephalics absent corneal reflexes absent gag, not breathing over ventilator MOTOR--no spontaneous limb movement Objective Micro and Labs Laboratory Tests Test 06/12/17 03:40 06/12/17 05:35 06/12/17 15:00 White Blood Count 26.1 Red Blood Count 4.66 Hemoglobin 14.0 Hematocrit 42.0 Mean Corpuscular Volume 90.2 Mean Corpuscular Hemoglobin 30.1 Mean Corpuscular Hemoglobin Concent 33.4 Red Cell Distribution Width 14.4 Platelet Count 246 Mean Platelet Volume 9.0 Neutrophils (%) (Auto) 92.5 Lymphocytes (%) (Auto) 2.4 Monocytes (%) (Auto) 4.8 Eosinophils (%) (Auto) 0.0 Basophils (%) (Auto) 0.3 Neutrophils # (Auto) 24.1 Lymphocytes # (Auto) 0.6 Monocytes # (Auto) 1.3 Eosinophils # (Auto) 0.0 Basophils # (Auto) 0.1 CBC Comment AUTO DIFF Differential Total Cells Counted 100 Neutrophils % (Manual) 87 Lymphocytes % 4 Monocytes % 6 Neutrophils # (Manual) 23.5 Metamyelocytes 1 Myelocytes 1 Promyelocytes 1 Differential Comment FINAL DIFF MANUAL Toxic Granulation 1+ Toxic Vacuolation PRESENT Platelet Estimate NORMAL Platelet Morphology Comment NORMAL Red Cell Morphology Comment NORMAL Blood Urea Nitrogen 166 127 Creatinine 9.45 8.02 Random Glucose 288 252 Calcium Level 9.1 9.0 Sodium Level 141 138 Potassium Level 6.8 6.1 Chloride Level 100 100 Carbon Dioxide Level 24.7 24.1 Anion Gap 16 14 Estimat Glomerular Filtration Rate 6 7 Ammonia LESS THAN 10 Blood Gas Puncture Site FEM Blood Gas Patient Temperature 98.6 Blood Gas HCO3 21 Blood Gas Base Excess -2.0 Blood Gas Oxygen Saturation 96 Arterial Blood pH 7.47 Arterial Blood Partial Pressure CO2 30 Arterial Blood Partial Pressure O2 108 Arterial Blood Oxygen Content 19.8 Arterial Blood Carboxyhemoglobin 0.7 Arterial Blood Methemoglobin 1.5 Blood Gas Hemoglobin 14.6 Oxygen Delivery Device VENTILATOR Blood Gas Ventilator Setting PRVC/AC Blood Gas Inspired Oxygen 35 Date/Time Source Procedure Growth Status 06/10/17 20:45 Blood Peripheral Aerobic Blood Culture - Preliminary NO GROWTH IN 2 DAYS Resulted 06/10/17 20:45 Blood Peripheral Anaerobic Blood Culture - Preliminary NO GROWTH IN 2 DAYS Resulted 06/10/17 19:30 Sputum Endotracheal Gram Stain - Final Complete 06/10/17 19:30 Sputum Endotracheal Sputum Culture - Final MODERATE GROWTH NORMAL RESPIRATORY KIM Complete 06/10/17 20:45 Urine Catheterized Urine Urine Culture - Final NO GROWTH IN 48 HOURS. Complete Alfredo Anaya MD PhD Jun 12, 2017 18:05
[2017-06-12] MEDS: AZITHROMYCIN INJ 500 MG in SODIUM CHLOR 0.9% 250 ML INJ 250 ML IV SCH (20:53)
[2017-06-13] VITALS (38 sets, daily range): BP systolic 92–187; BP diastolic 62–105; PULSE 80–100; RESP 16; O2SAT 92–98
[2017-06-13] MEDS: hydrALAZINE HCL 20 MG/ML VIAL IV PUSH PRN ×3 (00:21→09:24)
[2017-06-13] MEDS: METOCLOPRAMIDE HCL 10 MG/2 ML VIAL IV SCH ×3 (00:21→17:52)
[2017-06-13] MEDS: methylPREDNISolone SOD SUCC 125 MG/2 ML VIAL IV PUSH SCH ×4 (00:22→17:58)
[2017-06-13] MEDS: INSULIN ASPART SUPPLEMENTAL SCALE SQ SCH ×4 (03:31→22:00)
[2017-06-13] MEDS: NYSTATIN 100,000 UNIT/GM CREAM 15 GM TOPICAL SCH ×3 (05:17→17:54)
--- NOTE | 2017-06-13 06:28 | RADRPT ---
EXAM DATE/TIME: 06/13/2017 04:26 [facility] COMPARISON: CHEST SINGLE AP, June 12, 2017, 3:02. INDICATIONS : Shortness of breath, possible pulmonary disease. MEDICAL HISTORY : Chronic obstructive pulmonary disease. SURGICAL HISTORY : None. ENCOUNTER: Subsequent ACUITY: 4 - 6 days PAIN SCORE: Non-responsive. LOCATION: Bilateral chest FINDINGS: Endotracheal tube, nasogastric tube and left subclavian central line in right neck central catheter a re stable. There is persistent hazy pleural parenchymal opacity in the left lung base and medial righ t lung base which are unchanged. Cardiac contours are grossly stable. CONCLUSION: No significant change Jakob Carter MD on June 13, 2017 at 6:26 Board Certified Radiologist. This report was verified electronically.
[2017-06-13 08:21] LABS: ALBUMIN 2.4 GM/DL (3.4-5.0); ALKALINE PHOSPHATASE 130 U/L (45-117); ALT (GPT) 40 U/L (12-78); AST (GOT) 138 U/L (15-37); BICARBONATE 21.5 MEQ/L (21.0-32.0); CALCIUM 8.7 MG/DL (8.5-10.1); CHLORIDE 97 MEQ/L (98-107); CREATININE 9.45 MG/DL (0.60-1.30); DIRECT BILIRUBIN ADULT 0.1 MG/DL (0.0-0.2); GLOMERULAR FILTRATION RATE 6 ML/MIN (>89); GLUCOSE,RANDOM 307 MG/DL (74-106); MAGNESIUM 3.5 MG/DL (1.5-2.5); SODIUM (NA) 138 MEQ/L (136-145); TOTAL BILIRUBIN ADULT 0.4 MG/DL (0.2-1.0); TOTAL PROTEIN 6.6 GM/DL (6.4-8.2)
[2017-06-13 08:22] LABS: BLOOD UREA NITROGEN 157 MG/DL (7-18); PHOSPHORUS 10.8 MG/DL (2.5-4.9)
--- NOTE | 2017-06-13 08:32 | HHI.CCPN ---
Subjective Remarks/Hospital Course 06/04: 56 yo Male with PMH of COPD on 2L home O2, HTN, DM who [place] [facility] [place] asystolic cardiac arrest. states he was in bed most the day. She tried to get him to seek medical attention but he initially refused. She noted that he was having respiratory difficulties so she made preparations to call [facility]. She went into check on him again and he was unresponsive. He was in asystole when [facility] arrived. had not administered bystander CPR. He was intubated in the field and CPR was initiated. Reportedly ROSC was achieved after 9 minutes of CPR per [facility]. He was hypotensive and was started on dopamine per [facility] which was continued in the ED and is currently running at 20 mcg/kg/min. Glucose was 145. His GCS was 3 on arrival and he had anisocoria. However as per the paramedics the said he has history of unequal pupil and the left one being fixed and nonreactive (however she denied this when I inquired about it later that evening??) states he had PFT's Wed per Dr. Eli and has had cough ever since. Had not complained of chest pain but had been having headaches and R leg pain since Lortab was recently discontinued by his physician. 06/05: Remains sedated, orally intubated on mechanical ventilation. Was on neuromuscular blockade which is currently being discontinued. Urine output 10 cc overnight. Given fluid bolus now and renal ultrasound ordered. 06/06: Remains sedated, orally intubated on mechanical ventilation. On propofol for sedation. Off neuromuscular blockade since yesterday. Essentially anuric renal failure. 06/07: Off sedation for more than 24 hours, remains comatose, orally intubated on mechanical ventilation. Vas-Cath placed and started hemodialysis today. 06/08: Remains comatose off sedation, orally intubated on mechanical ventilation. 06/09: Remains comatose off sedation, orally intubated on mechanical ventilation. Awaiting EEG this morning. Tube feeds held this morning for high residuals. Dialyzed yesterday. 06/10: Remains, dose of sedation. Being dialyzed. Consulted neurology for brain eval. Flow study ordered. 06/11: T-max 99.1. No change in neurological status. Cerebral blood flow revealed some cortical activity. Repeat study planned in the near future per neurology recommendations. Reglan instituted yesterday every 8 hours Glucerna initiated at trickle feeds. 06/12: No neurological change overnight. The patient remains comatose. The patient was noted to have a potassium of 6.8 early this a.m., no ectopy noted. The patient received Kayexalate and calcium and insulin and D50. Patient was dialyzed early this am. Repeat BMP pending. Tube feeds changed from Glucerna to Nepro. Patient intolerant of tube feeds. discussion with Dr. Devlin palliative care team manager family awaiting arrival of patient's brother. Patient's CODE STATUS changed to DNR. Plan for possible institution of comfort care measures on Saturday. 06/13: T-max 99.5. Patient underwent IHD yesterday with 3 L removed . Repeat labs ,last evening patient was noted to have a potassium level of 6.1 received Kayexalate. Labs pending this a.m.. No ectopy noted, telemetry sinus rhythm. No change in neurological status the patient remains encephalopathic. Cerebral blood flow studies pending this a.m.. Objective Vital Signs Date Time Temp Pulse Resp B/P (MAP) Pulse Ox O2 Delivery O2 Flow Rate FiO2 06/13/17 06:00 89 06/13/17 04:00 35 06/13/17 04:00 97.9 16 170/100 (123) 93 Intake and Output 06/13/17 06/13/17 06/14/17 08:00 16:00 00:00 Intake Total 95 ml Output Total 75 ml Balance 20 ml Result Diagram: 06/12/17 0340 06/12/17 1500 Other Results Microbiology Date/Time Source Procedure Growth Status 06/10/17 19:30 Sputum Endotracheal Gram Stain - Final Complete 06/10/17 19:30 Sputum Endotracheal Sputum Culture - Final MODERATE GROWTH NORMAL RESPIRATORY KIM Complete 06/10/17 20:45 Urine Catheterized Urine Urine Culture - Final NO GROWTH IN 48 HOURS. Complete Imaging Last Impressions Chest X-Ray 06/13/17 0600 Signed Impressions: Service Date/Time: June 04:26 - CONCLUSION: No significant change Jakob Carter MD Brain Flow Nuclear Medicine 06/10/17 0000 Signed Impressions: Service Date/Time: Saturday, June 10, 2017 12:56 - CONCLUSION: There is some cortical activity seen in the left hemisphere and activity is seen in the sagittal sinus. Therefore, this study does not meet the nuclear imaging criteria for brain . Terrell Dozier MD Abdomen/Pelvis CT 06/10/17 0000 Signed Impressions: Service Date/Time: Saturday, June 10, 2017 13:58 - CONCLUSION: 1. Left lower lobe consolidation. Small bilateral pleural effusions. 2. No focal abnormalities seen in the liver on this noncontrast study. 3. Large left inguinal hernia containing portions of the sigmoid colon. No dilated loops of small or large bowel. Terrell Dozier MD Renal Ultrasound 06/05/17 0000 Signed Impressions: Service Date/Time: Monday, June 05, 2017 11:50 - CONCLUSION: No hydronephrosis Jakob Carter MD Head CT 06/04/17 1555 Signed Impressions: Service Date/Time: Sunday, June 04, 2017 16:42 - CONCLUSION: Normal examination. Ludin Woods MD Objective Remarks GENERAL: Obese male who is orotracheally intubated. Remains comatose off all sedation SKIN: Centrally warm, peripherally cool with some mottling of his knees bilaterally HEAD: Atraumatic. Normocephalic. EYES: R pupil 4-5 mm and fixed, L pupil 8 mm and nonreactive. No scleral icterus. No injection or drainage. ENT: No nasal bleeding or discharge. Mucous membranes pale. NECK: Trachea midline. No JVD. CARDIOVASCULAR: Regular rate and rhythm, sinus rhythm on monitor. No murmurs rubs or gallops. RESPIRATORY: Orally intubated on mechanical ventilation, good air entry bilaterally, scattered rhonchi, no wheezing or crackles. GASTROINTESTINAL: Abdomen soft, non-tender, nondistended. Large L inguinal hernia, not incarcerated. : urinary catheter in place MUSCULOSKELETAL: Extremities without clubbing, cyanosis, 1+ peripheral edema. NEUROLOGICAL: Comatose, orally intubated. 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 Absent gag response, absent doll's eye, absent corneal reflex, absent spontaneous respirations. A/P Assessment and Plan NEURO: Coma Anoxic Encephalopathy Depression Peripheral neuropathy Hard of hearing Hyperammonemia-resolved CT brain - normal 4/2 cerebral brain flow study-some cortical activity seen in left hemisphere and sagittal sinus 4/2 Neurology following Stop Coumadin currently. We will attempt to keep normothermic Hyperammonemia with level 52. Will avoid lactulose at this point due to metabolic derangements. Recent [place] Act for depression. Tylenol, salicylate negative. EtOH negative. Remains comatose. Suspect severe anoxic encephalopathy. Neurology consulted for brain evaluation. Brain flow study ordered with nuclear medicine. Hold gabapentin 300 daily 06/12: ammonia level- < 10 06/13 follow-up cerebral blood flow study this a.m. RESP: Acute hypercapnic and hypoxemic respiratory failure Aspiration pneumonia Acute COPD exacerbation Obstructive sleep apnea Continue mechanical ventilation Status post Therapeutic and diagnostic bronchoscopy with removal of copious mucopurulent secretions by Dr. Gomez Ventilator bundle DuoNeb every 4 hours. Albuterol every 2 hours as needed Solu-Medrol 60 mg IV every 6 hours Antibiotics as per below /2: CPAP trial initiated patient failed not breathing over the vent on no sedation CV: Asystolic cardiac arrest suspect secondary to severe COPD exacerbation with hypercapnia Type II NSTEMI Lactic acidemia - secondary to cardiac arrest. Essential hypertension Resumed propranolol 20 mg twice daily Mild troponin elevation secondary to type II NSTEMI Art line placed with Rene Trac for hemodynamic monitoring. Discontinued 06/11 GI: Acute ischemic hepatitis tube feeds as tolerated 06/11 changed to Glucerna -we will re-initiate trickle feeds 06/10 Reglan every 8 hours Trend LFTs FEN/RENAL: Acute kidney injury Electrolyte abnormality-hyperkalemia Anuric despite optimization of hemodynamic parameters on Flotrac. Likely secondary to ischemic ATN Renal ultrasound with no hydronephrosis Monitor electrolytes every 6 hours during cooling. Replace as indicated. Hold Celebrex and other NSAIDs Nephrology consulted. Started hemodialysis 06/07. Vas-Cath placed in right IJ 06/12: Patient received calcium, insulin and D50, and Kayexalate-potassium level 6.1 06/13 Potassium level 6.8-nephrology notified, calcium insulin and D50 and Kayexalate provided ID: Acute community acquired pneumonia versus aspiration pneumonia Severe sepsis Follow-up results of bronchial washing, blood culture. Unable to obtain urine therefore unable to obtain u/a or urine legionella or pneumococcal antigen. Influenza positive Antibiotics per ID. Growing Haemophilus influenza and sputum. Marilynn intertrigo bilateral groin nystatin topical HEME: Monitor CBC ENDO: Type II Diabetes mellitus Monitor bedside glucose every 6 hours and initiate low-dose insulin sliding scale as indicated PROPH: Heparin 5000 units subcutaneous every 12 hours for DVT prophylaxis. Famotidine for stress ulcer prophylaxis ACCESS: Left subclavian central venous line placed by ED physician 06/04. Right radial art line placed 06/04. Right femoral heat exchange catheter placed 06/04, removed 06/08 Patient's is uncertain if he has a living will. She says she believes he may have written up a living will previously and that his sister may have it; she will investigate further. Patient is full code at this time. On 06/04 Dr. Gomez discussed with patient's that neurologic prognosis appears poor at this point. Dr. Gomez also spoke with patient's sister Milagros and then his brother Abner Krueger on phone. Multiple questions answered. They are aware he is very critically ill with guarded neurologic prognosis and plan to come down from [place] this week. Dr. Gomez discussed with him that we will have limited information about his neurologic prognosis over the next several days as we complete rewarming process and subsequent sedation discontinuation. 06/12 Palliative Care team manager Dr. Devlin, conference with family. CODE STATUS changed to alternate. awaiting arrival of patient's brother and then possible institution of comfort care measures on Saturday D/W Dr. Devlin, AMMONIUM SULFATE OPERATOR at bedside ([place] ) my billing statement This patient remains critically ill with one or more organ systems which are or may become a threat to life. I have spent in excess of 30 minutes discontinuously in the care and management of this patient. This time is exclusive of procedures, and includes, but is not limited to, evaluation of the patient, review of the medical record, discussions with family, consultants, nursing staff, or respiratory therapy, and documentation in the medical record. Physician Milagros Monahan MD Jun 13, 2017 08:32
[2017-06-13] MEDS ORDERED: INSULIN HUMAN REGULAR 1,000 UNITS/10 ML VIAL IV PUSH ONE (08:45)
[2017-06-13] MEDS ORDERED: SODIUM POLYSTYRENE SULFONATE SUSP 15 GM/60 ML CUP PO ONE (08:45)
[2017-06-13] MEDS ORDERED: DEXTROSE 50% IN WATER 50 ML VIAL(D50) IV PUSH ONE (08:45)
[2017-06-13] MEDS: ARTIFICIAL TEARS OPTH OINT 3.5 APPLIC/3.5 GM TUBO EACH EYE SCH ×2 (09:00→19:57)
[2017-06-13] MEDS: INSULIN DETEMIR 100 UNITS/ML VIAL SQ SCH ×2 (09:00→19:58)
[2017-06-13] MEDS: SODIUM CHLORIDE 0.9% FLUSH 10 ML FLUSH IV FLUSH SCH ×2 (09:00→19:57)
[2017-06-13] MEDS ORDERED: CALCIUM CHLORIDE INJ 1 GM in SODIUM CHLORIDE 0.9% INJ 100 ML IV ONE (09:15)
[2017-06-13] MEDS: DOCUSATE SODIUM 50 MG/SENNA 8.6 MG TAB PO SCH ×2 (09:23→19:53)
[2017-06-13] MEDS: CALCIUM ACETATE 667 MG CAP PO SCH ×3 (09:23→17:52)
[2017-06-13] MEDS: FAMOTIDINE 20 MG TAB PO SCH ×2 (09:23→19:53)
[2017-06-13] MEDS: PROPRANOLOL HCL 20 MG TAB PO SCH ×2 (09:23→19:53)
[2017-06-13] MEDS: CHLORHEXIDINE 0.12% (ORAL KIT) 15 ML CUP MT SCH ×2 (09:24→19:57)
[2017-06-13] MEDS: HEPARIN SODIUM - SQ 10,000 UNITS/ML VIAL SQ SCH ×2 (09:24→19:53)
--- NOTE | 2017-06-13 09:49 | HHI.NPPN ---
Subjective Renal Failure: Acute History of Present Illness Patient is a 56 yo Male with PMH of COPD on O2 dependent, HTN and DM. Presented to [facility] ED following asystolic cardiac arrest. Per records patient has had a cough for over a week and just not feeling well. Reportedly ROSC was achieved after 9 minutes of CPR per [facility]. Patient is intubated and sedated currently. On therapeutic cool therapy. Nephrology was consulted for acute kidney injury with a creatinine of 3.78. UOP approximately 10 ml overnight and 10 ml today. Patient has received a fluid bolus and is currently on a bicarb gtt. Patient does not have a past medical history of CKD. Additional Remarks Patient remains intubated and unresponsive. Potassium is elevated at 6.8 today. (Leyla Tello) Review of Systems General General Remarks Unable to do ROS as patient is intubated (Leyla Tello) Objective Data Data Vital Signs Date Time Temp Pulse Resp B/P (MAP) Pulse Ox O2 Delivery O2 Flow Rate FiO2 06/13/17 08:42 95 35 06/13/17 06:00 89 06/13/17 04:00 35 06/13/17 04:00 97.9 91 16 170/100 (123) 93 06/13/17 04:00 91 06/13/17 03:18 95 35 06/13/17 02:00 91 06/13/17 00:45 98 35 06/13/17 00:00 35 06/13/17 00:00 98.6 87 16 160/96 (117) 94 06/13/17 00:00 87 06/12/17 22:00 97 06/12/17 20:20 94 35 06/12/17 20:00 96 06/12/17 20:00 99.0 96 16 151/93 (112) 93 06/12/17 20:00 35 06/12/17 18:00 103 06/12/17 16:00 99 06/12/17 16:00 35 06/12/17 16:00 99.5 99 20 164/96 (118) 93 06/12/17 15:18 94 35 06/12/17 15:01 99.3 93 20 174/105 (128) 93 06/12/17 15:00 99.3 93 20 185/109 (134) 92 06/12/17 14:30 99.3 92 20 167/107 (127) 93 06/12/17 14:00 90 06/12/17 14:00 99.1 90 20 158/99 (118) 92 06/12/17 13:30 99.1 100 20 174/105 (128) 93 06/12/17 13:00 99.1 98 20 171/107 (128) 93 06/12/17 12:30 99.1 96 20 157/103 (121) 94 06/12/17 12:15 99.3 96 20 159/102 (121) 93 06/12/17 12:00 99.4 95 20 126/93 (104) 94 06/12/17 12:00 95 06/12/17 12:00 35 06/12/17 11:45 99.1 94 126/92 (103) 94 06/12/17 11:30 99.1 93 125/92 (103) 94 06/12/17 11:18 94 35 06/12/17 11:15 99.0 93 127/94 (105) 94 06/12/17 11:00 99.0 93 127/93 (104) 94 06/12/17 10:45 99.0 93 131/92 (105) 94 06/12/17 10:30 98.8 93 132/89 (103) 94 06/12/17 10:15 98.8 93 128/88 (101) 94 06/12/17 10:00 93 06/12/17 10:00 98.8 93 121/85 (97) 93 (Leyla Tello) -: 06/12/17 0340 06/13/17 0626 Tubes & Lines: Vas-Cath, Bruner (Leyla Tello) Physical Exam General Appearance: No Acute Distress, Obese Appearance Remarks intubated (Leyla Tello) Throat Throat Exam: Oral Mucosa [place] & Moist (Leyla Tello) Pulmonary Resp Exam: Breath Sounds Equal, No Distress (Leyla Tello) Cardiology CV Exam: Regular (Leyla Tello) Gastrointestinal/Abdomen GI Exam: Soft, Non-Tender, Distended (Leyla Tello) Genitourinary Remarks minimal uop (Leyla Tello) Integumentary Skin Exam: Clear, Warm, Dry (Leyla Tello) Extremeties Extremities Exam: Moderate Edema (Leyla Tello) Neurologic Neuro Exam: Unresponsive (Leyla Tello) Assessment/Plan Problem List: (1) Acute kidney injury ICD Codes: N17.9 - Acute kidney failure, unspecified Plan: Acute kidney injury with a creatinine of 3.78 most likely ATN from cardiopulmonary arrest. Renal US with no acute findings HD started on 06/07 via vas cath UOP remains minimal Plan Avoid nephrotoxins as possible Renal dose antibiotics Continue to monitor UOP and BMP HD today yesterday 3 liters removed Hyperkalemia again today at 6.8 with Kayexalate, Insulin, D50 and calcium given per CC Brain scan this AM and dialysis after. Plan for possible comfort care measures on Saturday, family still to arrive. (2) Respiratory failure ICD Codes: J96.90 - Respiratory failure, unspecified, unspecified whether with hypoxia or hypercapnia Plan: Intubated (3) Cardiorespiratory arrest ICD Codes: I46.9 - Cardiac arrest, cause unspecified Status: Acute (Leyla Tello) Problem List: (1) Acute kidney injury ICD Codes: N17.9 - Acute kidney failure, unspecified Plan: Acute kidney injury with a creatinine of 3.78 most likely ATN from cardiopulmonary arrest. Renal US with no acute findings HD started on 06/07 via vas cath UOP remains minimal Plan Avoid nephrotoxins as possible Renal dose antibiotics Continue to monitor UOP and BMP HD today yesterday 3 liters removed Hyperkalemia again today at 6.8 with Kayexalate, Insulin, D50 and calcium given per CC Brain scan this AM and dialysis after. Plan for possible comfort care measures on Saturday, family still to arrive. Patient seen and examined, agree with above. K was elevated, HD done again today. (2) Respiratory failure ICD Codes: J96.90 - Respiratory failure, unspecified, unspecified whether with hypoxia or hypercapnia Plan: Intubated (3) Cardiorespiratory arrest ICD Codes: I46.9 - Cardiac arrest, cause unspecified Status: Acute (Jana Martin MD) Leyla TelloP Jun 13, 2017 09:49 Jana Martin MD Jun 13, 2017 18:41
--- NOTE | 2017-06-13 11:20 | RADRPT ---
EXAM DATE/TIME: 06/13/2017 10:06 [facility] COMPARISON: BRAIN IMAGE WITH FLOW, June 10, 2017, 12:56. INDICATIONS : Anoxic encephalopathy. DOSE: 25 mCi Tc99m DTPA IV The diagnosis of brain is clinical and the results of this test should be taken in the content of clinical and electrocephalographic data. MEDICAL HISTORY : Hypertension. Chronic obstructive pulmonary disease. SURGICAL HISTORY : Inguinal hernia repair. Right hip and spinal surgery. ENCOUNTER: Subsequent ACUITY: 1 week PAIN SCALE: 2/10 LOCATION: Head. TECHNIQUE: Anterior dynamic imaging as well as delayed static imaging. FINDINGS: On the flow study, there is prominent activity in the nasal cavity and no intraparenchymal blood is s een. There is, however some activity seen in the midline in the region of the sagittal sinus. On th e delayed phase images, clear-cut activity seen in the sagittal sinus on both the frontal and vertex views. CONCLUSION: There is activity discernible in the sagittal sinus. Therefore, this scan does not meet the nuclear imaging criteria for brain . Terrell Dozier MD on June 13, 2017 at 11:16 Board Certified Radiologist. This report was verified electronically.
[2017-06-13 13:50] LABS: AUTOMATED NEUTROPHIL # 21.7 TH/MM3 (1.8-7.7); BASOPHIL # 0.1 TH/MM3 (0-0.2); BASOPHIL % 0.3 % (0.0-2.0); EOSINOPHIL % 0.1 % (0.0-4.0); HEMATOCRIT 40.6 % (39.0-51.0); HEMOGLOBIN 13.5 GM/DL (13.0-17.0); LYMPH % 3.6 % (9.0-44.0); LYMPHOCYTE # 0.9 TH/MM3 (1.0-4.8); MEAN CELL VOLUME 90.4 FL (80.0-100.0); MEAN CORPUSCULAR HEMOGLOBIN 29.9 PG (27.0-34.0); MEAN CORPUSCULAR HGB CONC 33.1 % (32.0-36.0); MEAN PLATELET VOLUME 9.3 FL (7.0-11.0); MONO % 10.3 % (0.0-8.0); MONOCYTE # 2.6 TH/MM3 (0-0.9); NEUT % 85.7 % (16.0-70.0); PLATELET COUNT 232 TH/MM3 (150-450); RED BLOOD COUNT 4.49 MIL/MM3 (4.50-5.90); RED CELL DISTRIBUTION WIDTH 14.2 % (11.6-17.2); WHITE BLOOD COUNT 25.3 TH/MM3 (4.0-11.0)
[2017-06-13] MEDS: SODIUM CHLOR 0.9% 1000 ML INJ 1,000 ML IV PRN (14:48)
[2017-06-13] MEDS: HEPARIN SODIUM - IV 10,000 UNITS/10 ML VIAL PRN (14:48)
[2017-06-13] MEDS: GENTAMICIN SULFATE 20 MG/2 ML VIAL OTHER PRN (14:48)
[2017-06-13 15:22] LABS: BANDS 1 % (0-6); LYMPHOCYTES 4 % (9-44); METAMYELOCYTES 1 % (0-1); MONOCYTES 10 % (0-8); NEUTROPHIL # MANUAL DIFF 21.8 TH/MM3 (1.8-7.7); POLYS (SEG NEUTROPHILS) 83 % (16-70); PROMYELOCYTES 1 % (0-0)
[2017-06-13 15:24] LABS: OVALOCYTES 1+ (NORMAL); SPHEROCYTES 1+ (NORMAL); TOXIC GRANULATION 1+ (NORMAL); TOXIC VACUOLATION PRESENT (NONE SEEN)
[2017-06-13] MEDS: cefTRIAXone INJ 2,000 MG in SODIUM CHLORIDE 0.9% INJ 100 ML IV SCH (17:52)
[2017-06-13] MEDS: AZITHROMYCIN INJ 500 MG in SODIUM CHLOR 0.9% 250 ML INJ 250 ML IV SCH (19:56)
[2017-06-13] MEDS: SODIUM CHLORIDE 0.9% FLUSH 10 ML FLUSH IV FLUSH PRN (19:57)
--- NOTE | 2017-06-13 21:26 | HHI.HCPN ---
Reason for visit a. To assist with evaluation and management of symptoms including:dyspnea; encephalopathy b. To assist medical decision maker(s) with: better understanding of current medical conditions; weighing benefits/burdens of medical treatment options; making medical treatment decisions. . Subjective/Interval History Patient remains mechanically ventilated, unresponsive, off sedation in medical ICU. Not breathing over vent. No significant change overnight. Repeat brain blood flow study continues to demonstrate some flow.Patient does not meet criteria for brain . . Family/friend interactions No family at bedside. Await arrival of brother expected Saturday evening or Saturday. . Advance Directives Living Will: Never completed Health Care Surrogate: Never completed Durable Power of Document Photographer: Never completed Objective Vital Signs Date Time Temp Pulse Resp B/P (MAP) Pulse Ox O2 Delivery O2 Flow Rate FiO2 06/13/17 18:30 96 06/13/17 18:00 94 06/13/17 17:40 35 06/13/17 17:36 95 35 06/13/17 17:30 98.1 94 133/86 (102) 93 06/13/17 17:30 94 06/13/17 17:00 97.9 91 121/81 (94) 94 06/13/17 17:00 91 06/13/17 16:45 97.7 90 123/82 (96) 92 06/13/17 16:45 90 06/13/17 16:30 90 06/13/17 16:30 97.5 90 103/70 (81) 94 06/13/17 16:17 97.3 90 127/82 (97) 93 06/13/17 16:17 90 06/13/17 16:15 97.3 91 92/65 (74) 94 06/13/17 16:15 91 06/13/17 16:02 97.2 91 98/67 (77) 93 06/13/17 16:02 91 06/13/17 16:00 91 06/13/17 16:00 97.2 91 94/62 (73) 93 06/13/17 15:00 83 06/13/17 14:38 80 06/13/17 14:37 80 06/13/17 14:36 80 06/13/17 14:35 80 06/13/17 14:34 80 06/13/17 14:00 80 06/13/17 12:00 95.9 83 95 06/13/17 12:00 35 06/13/17 12:00 83 06/13/17 11:02 97 35 06/13/17 11:00 96.1 85 155/89 (111) 97 06/13/17 11:00 85 06/13/17 10:00 96 60 06/13/17 09:55 87 06/13/17 09:55 96.6 87 155/89 (111) 94 06/13/17 09:30 96.8 85 187/105 (132) 94 06/13/17 09:30 85 06/13/17 09:00 96.8 85 174/104 (127) 94 06/13/17 09:00 85 06/13/17 08:42 95 35 06/13/17 08:30 86 06/13/17 08:30 97.0 86 177/104 (128) 94 06/13/17 08:00 97.2 86 173/100 (124) 94 06/13/17 08:00 35 06/13/17 08:00 86 06/13/17 06:00 89 06/13/17 04:00 35 06/13/17 04:00 97.9 91 16 170/100 (123) 93 06/13/17 04:00 91 06/13/17 03:18 95 35 06/13/17 02:00 91 06/13/17 00:45 98 35 06/13/17 00:00 35 06/13/17 00:00 98.6 87 16 160/96 (117) 94 06/13/17 00:00 87 06/12/17 22:00 97 . Physical Exam CONSTITUTIONAL/GENERAL: Intubated, unresponsive (off sedation) TUBES/LINES/DRAINS:ET tube, dialysis cath, jaramillo, Left subclavian central line. SKIN: Skin temperature appropriate. Not diaphoretic. EYES: Right eye patched. Left pupil fixed and dilated. ENT: Unable to assess hearing. Nose without bleeding or purulent drainage. Throat ET tube in place NECK: Trachea midline. CARDIOVASCULAR: Regular rate and rhythm without murmurs, gallops, or rubs. No JVD. RESPIRATORY/CHEST: Lungs clear. GASTROINTESTINAL: Abdomen soft, non-tender, nondistended. No hepato-splenomegaly , or palpable masses. GENITOURINARY: Without palpable bladder distension. MUSCULOSKELETAL: Extremities with 3+ edema on all extremities LYMPHATICS: Not examined NEUROLOGICAL: Unresponsive. Absent corneal reflexes. Absent gag. Does not withdraw to noxious stimuli. PSYCHIATRIC: Unable to evaluate due to level of responsiveness. . . Diagnostic Tests Laboratory Laboratory Tests Test 06/11/17 08:00 06/11/17 09:00 06/12/17 03:40 06/12/17 05:35 White Blood Count 20.9 TH/MM3 (4.0-11.0) 26.1 TH/MM3 (4.0-11.0) Red Blood Count 4.20 MIL/MM3 (4.50-5.90) 4.66 MIL/MM3 (4.50-5.90) Hemoglobin 12.8 GM/DL (13.0-17.0) 14.0 GM/DL (13.0-17.0) Hematocrit 38.0 % (39.0-51.0) 42.0 % (39.0-51.0) Mean Corpuscular Volume 90.6 FL (80.0-100.0) 90.2 FL (80.0-100.0) Mean Corpuscular Hemoglobin 30.4 PG (27.0-34.0) 30.1 PG (27.0-34.0) Mean Corpuscular Hemoglobin Concent 33.6 % (32.0-36.0) 33.4 % (32.0-36.0) Red Cell Distribution Width 14.1 % (11.6-17.2) 14.4 % (11.6-17.2) Platelet Count 206 TH/MM3 (150-450) 246 TH/MM3 (150-450) Mean Platelet Volume 9.1 FL (7.0-11.0) 9.0 FL (7.0-11.0) Neutrophils (%) (Auto) 91.3 % (16.0-70.0) 92.5 % (16.0-70.0) Lymphocytes (%) (Auto) 2.8 % (9.0-44.0) 2.4 % (9.0-44.0) Monocytes (%) (Auto) 5.0 % (0.0-8.0) 4.8 % (0.0-8.0) Eosinophils (%) (Auto) 0.8 % (0.0-4.0) 0.0 % (0.0-4.0) Basophils (%) (Auto) 0.1 % (0.0-2.0) 0.3 % (0.0-2.0) Neutrophils # (Auto) 19.1 TH/MM3 (1.8-7.7) 24.1 TH/MM3 (1.8-7.7) Lymphocytes # (Auto) 0.6 TH/MM3 (1.0-4.8) 0.6 TH/MM3 (1.0-4.8) Monocytes # (Auto) 1.0 TH/MM3 (0-0.9) 1.3 TH/MM3 (0-0.9) Eosinophils # (Auto) 0.2 TH/MM3 (0-0.4) 0.0 TH/MM3 (0-0.4) Basophils # (Auto) 0.0 TH/MM3 (0-0.2) 0.1 TH/MM3 (0-0.2) CBC Comment AUTO DIFF AUTO DIFF Differential Total Cells Counted 100 100 Neutrophils % (Manual) 86 % (16-70) 87 % (16-70) Band Neutrophils % 1 % (0-6) Lymphocytes % 6 % (9-44) 4 % (9-44) Monocytes % 4 % (0-8) 6 % (0-8) Neutrophils # (Manual) 18.8 TH/MM3 (1.8-7.7) 23.5 TH/MM3 (1.8-7.7) Metamyelocytes 3 % (0-1) 1 % (0-1) Differential Comment FINAL DIFF MANUAL FINAL DIFF MANUAL Atypical Lymphocytes % (0-0) Platelet Estimate NORMAL (NORMAL) NORMAL (NORMAL) Platelet Morphology Comment NORMAL (NORMAL) NORMAL (NORMAL) Red Cell Morphology Comment NORMAL (NORMAL) NORMAL (NORMAL) Stool C. difficile Toxin (PCR) NEGATIVE (NEGATIVE) Stl C. difficile Toxin Epiderm 027 PRESUMPTIVE NEGATIVE Myelocytes 1 % (0-0) Promyelocytes 1 % (0-0) Toxic Granulation 1+ (NORMAL) Toxic Vacuolation PRESENT (NONE SEEN) Blood Urea Nitrogen 166 MG/DL (7-18) Creatinine 9.45 MG/DL (0.60-1.30) Random Glucose 288 MG/DL (74-106) Calcium Level 9.1 MG/DL (8.5-10.1) Sodium Level 141 MEQ/L (136-145) Potassium Level 6.8 MEQ/L (3.5-5.1) Chloride Level 100 MEQ/L (98-107) Carbon Dioxide Level 24.7 MEQ/L (21.0-32.0) Anion Gap 16 MEQ/L (5-15) Estimat Glomerular Filtration Rate 6 ML/MIN (>89) Ammonia LESS THAN 10 MCMOL/L Blood Gas Puncture Site FEM Blood Gas Patient Temperature 98.6 Blood Gas HCO3 21 mmol/L (22-26) Blood Gas Base Excess -2.0 mmol/L (-2-2) Blood Gas Oxygen Saturation 96 % (90-100) Arterial Blood pH 7.47 (7.380-7.420) Arterial Blood Partial Pressure CO2 30 mmHg (38-42) Arterial Blood Partial Pressure O2 108 mmHg (61-120) Arterial Blood Oxygen Content 19.8 Vol % (12.0-20.0) Arterial Blood Carboxyhemoglobin 0.7 % (0-4) Arterial Blood Methemoglobin 1.5 % (0-2) Blood Gas Hemoglobin 14.6 G/DL (12.0-16.0) Oxygen Delivery Device VENTILATOR Blood Gas Ventilator Setting PRVC/AC Blood Gas Inspired Oxygen 35 % Test 06/12/17 15:00 06/13/17 06:26 06/13/17 13:34 Blood Urea Nitrogen 127 MG/DL (7-18) 157 MG/DL (7-18) Creatinine 8.02 MG/DL (0.60-1.30) 9.45 MG/DL (0.60-1.30) Random Glucose 252 MG/DL (74-106) 307 MG/DL (74-106) Calcium Level 9.0 MG/DL (8.5-10.1) 8.7 MG/DL (8.5-10.1) Sodium Level 138 MEQ/L (136-145) 138 MEQ/L (136-145) Potassium Level 6.1 MEQ/L (3.5-5.1) 6.8 MEQ/L (3.5-5.1) Chloride Level 100 MEQ/L (98-107) 97 MEQ/L (98-107) Carbon Dioxide Level 24.1 MEQ/L (21.0-32.0) 21.5 MEQ/L (21.0-32.0) Anion Gap 14 MEQ/L (5-15) 20 MEQ/L (5-15) Estimat Glomerular Filtration Rate 7 ML/MIN (>89) 6 ML/MIN (>89) Total Protein 6.6 GM/DL (6.4-8.2) Albumin 2.4 GM/DL (3.4-5.0) Phosphorus Level 10.8 MG/DL (2.5-4.9) Magnesium Level 3.5 MG/DL (1.5-2.5) Alkaline Phosphatase 130 U/L (45-117) Aspartate Amino Transf (AST/SGOT) 138 U/L (15-37) Alanine Aminotransferase (ALT/SGPT) 40 U/L (12-78) Total Bilirubin 0.4 MG/DL (0.2-1.0) Direct Bilirubin 0.1 MG/DL (0.0-0.2) White Blood Count 25.3 TH/MM3 (4.0-11.0) Red Blood Count 4.49 MIL/MM3 (4.50-5.90) Hemoglobin 13.5 GM/DL (13.0-17.0) Hematocrit 40.6 % (39.0-51.0) Mean Corpuscular Volume 90.4 FL (80.0-100.0) Mean Corpuscular Hemoglobin 29.9 PG (27.0-34.0) Mean Corpuscular Hemoglobin Concent 33.1 % (32.0-36.0) Red Cell Distribution Width 14.2 % (11.6-17.2) Platelet Count 232 TH/MM3 (150-450) Mean Platelet Volume 9.3 FL (7.0-11.0) Neutrophils (%) (Auto) 85.7 % (16.0-70.0) Lymphocytes (%) (Auto) 3.6 % (9.0-44.0) Monocytes (%) (Auto) 10.3 % (0.0-8.0) Eosinophils (%) (Auto) 0.1 % (0.0-4.0) Basophils (%) (Auto) 0.3 % (0.0-2.0) Neutrophils # (Auto) 21.7 TH/MM3 (1.8-7.7) Lymphocytes # (Auto) 0.9 TH/MM3 (1.0-4.8) Monocytes # (Auto) 2.6 TH/MM3 (0-0.9) Eosinophils # (Auto) 0.0 TH/MM3 (0-0.4) Basophils # (Auto) 0.1 TH/MM3 (0-0.2) CBC Comment AUTO DIFF Differential Total Cells Counted 100 Neutrophils % (Manual) 83 % (16-70) Band Neutrophils % 1 % (0-6) Lymphocytes % 4 % (9-44) Monocytes % 10 % (0-8) Neutrophils # (Manual) 21.8 TH/MM3 (1.8-7.7) Metamyelocytes 1 % (0-1) Promyelocytes 1 % (0-0) Differential Comment FINAL DIFF MANUAL Toxic Granulation 1+ (NORMAL) Toxic Vacuolation PRESENT (NONE SEEN) Platelet Estimate NORMAL (NORMAL) Platelet Morphology Comment NORMAL (NORMAL) Spherocytes 1+ (NORMAL) Ovalocytes 1+ (NORMAL) . Result Diagram: 06/13/17 1334 06/13/17 0626 Microbiology Microbiology Date/Time Source Procedure Growth Status 06/10/17 20:45 Blood Peripheral Aerobic Blood Culture - Preliminary NO GROWTH IN 3 DAYS Resulted 06/10/17 20:45 Blood Peripheral Anaerobic Blood Culture - Preliminary NO GROWTH IN 3 DAYS Resulted 06/10/17 19:30 Sputum Endotracheal Gram Stain - Final Complete 06/10/17 19:30 Sputum Endotracheal Sputum Culture - Final MODERATE GROWTH NORMAL RESPIRATORY KIM Complete 06/10/17 20:45 Urine Catheterized Urine Urine Culture - Final NO GROWTH IN 48 HOURS. Complete . Imaging Last Impressions Brain Flow Nuclear Medicine 06/13/17 1000 Signed Impressions: Service Date/Time: June 10:06 - CONCLUSION: There is activity discernible in the sagittal sinus. Therefore, this scan does not meet the nuclear imaging criteria for brain . Terrell Dozier MD Chest X-Ray 06/13/17 0600 Signed Impressions: Service Date/Time: June 04:26 - CONCLUSION: No significant change Jakob Carter MD Abdomen/Pelvis CT 06/10/17 0000 Signed Impressions: Service Date/Time: Saturday, June 10, 2017 13:58 - CONCLUSION: 1. Left lower lobe consolidation. Small bilateral pleural effusions. 2. No focal abnormalities seen in the liver on this noncontrast study. 3. Large left inguinal hernia containing portions of the sigmoid colon. No dilated loops of small or large bowel. Terrell Dozier MD Renal Ultrasound 06/05/17 0000 Signed Impressions: Service Date/Time: Monday, June 05, 2017 11:50 - CONCLUSION: No hydronephrosis Jakob Carter MD Head CT 06/04/17 1555 Signed Impressions: Service Date/Time: Sunday, June 04, 2017 16:42 - CONCLUSION: Normal examination. Ludin Woods MD . Assessment and Plan Disease Oriented Problem List: (1) Encephalopathy Comment: Severe. No brain stem reflexes. Minimal brain flow. . (2) Septic shock (3) Cardiorespiratory arrest (4) Respiratory failure Comment: pneumonia (5) Acute kidney injury Comment: Requiring hemodialysis. . Symptom Scale: (1) Dyspnea 0-10 Scale: Unable to quantify Comment: Managed on the ventilator. . Pertinent Non-Medical Issues Psychosocial:Lives with . On disablility. No children Spiritual:Rastafarian Legal: Per , she had confirmed with his sister, pt has no advance directives. Ethical issues impacting care:Patient is incapacitated and has no reasonable probability of recovering capacity. . Important Contacts Edith Silva [phone] . Prognosis Patient has a history of COPD, chronic pain that was found by to be unresponsive. EVAC found patient to be in asystole, where CPR was initiated and patient intubated. Now with severe anoxic encephalopathy. Is not breathing over vent. There is loss of brain stem reflexes. Brain flow study showing minimal flow. Chances of survival are bleak. Essentially no chance of meaningful recovery. . Code Status: Alternative Code Plan == Code Status : ALTERNATE CODE -- No chest compressions; No shock == Decision making: Patient is incapacitated to make his own health care decisions. There is no reasonable probability that he will regain capacity to do so. No advance directive. Pt's -- Edith Silva -- is proxy healthcare decision maker. == Symptoms * Pain: Uncertain if patient is able to experience pain at this time given extent of anoxic brain injury. Not receiving opiates. No further recommendations at this time. * Dyspnea- currently managed with mechanical ventilation. Uncertain if patient is able to experience subjective shortness of breath given extent of anoxic brain injury. No further recommendations at this time. == Goals of medical treatment: Family has opted for ALT CODE STATUS -- No chest compressions; No shock. They plan on withdrawing life support shortly after the patient's brother Abner visits on Saturday. == Plan summary... * Now ALT CODE -- no chest compressions; no shock * One more dialysis treatment on Saturday06/14/17 * Patient's brother -- Abner -- expected to arrive on Saturday evening or Saturday. 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 Withdrawal of life support should be done in conjunction with organ procurement organization. * Probably no need for further brain flow studies at this time. Even if patient met criteria for brain , we would likely allow him to remain on vent until brother arrives. . . . Attestation To help prompt me to consider important information that might be impacting today's encounter and assessment, information from prior notes written by myself or my colleagues may have been "brought forward" into today's note. My signature on this note, however, is an attestation that I personally performed the exam, history, and/or decision-making noted today, and, unless otherwise indicated, the interactions with patient, family, and staff as well as the review of records all occurred today. I also attest that the listed assessment and stated plan reflect my best clinical judgment today based on the combination of historical information, prior notes, and today's exam/ interactions. When time spent is documented, it refers only to time spent today by the signer, or if indicated, combined time spent today by collaborating physician/nurse practitioner. . Jesse Devlin MD Jun 13, 2017 21:26
[2017-06-14] VITALS (23 sets, daily range): BP systolic 113–181; BP diastolic 78–104; PULSE 89–97; O2SAT 92–95
[2017-06-14] MEDS: METOCLOPRAMIDE HCL 10 MG/2 ML VIAL IV SCH ×2 (00:11→09:00)
[2017-06-14] MEDS: methylPREDNISolone SOD SUCC 125 MG/2 ML VIAL IV PUSH SCH ×3 (00:11→12:26)
[2017-06-14] MEDS: NYSTATIN 100,000 UNIT/GM CREAM 15 GM TOPICAL SCH ×3 (00:11→12:00)
[2017-06-14 02:34] LABS: AUTOMATED NEUTROPHIL # 20.5 TH/MM3 (1.8-7.7); BASOPHIL % 0.2 % (0.0-2.0); HEMATOCRIT 42.3 % (39.0-51.0); HEMOGLOBIN 14.1 GM/DL (13.0-17.0); LYMPH % 1.3 % (9.0-44.0); LYMPHOCYTE # 0.3 TH/MM3 (1.0-4.8); MEAN CELL VOLUME 90.6 FL (80.0-100.0); MEAN CORPUSCULAR HEMOGLOBIN 30.2 PG (27.0-34.0); MEAN CORPUSCULAR HGB CONC 33.4 % (32.0-36.0); MEAN PLATELET VOLUME 9.2 FL (7.0-11.0); MONO % 2.1 % (0.0-8.0); MONOCYTE # 0.4 TH/MM3 (0-0.9); NEUT % 96.4 % (16.0-70.0); PLATELET COUNT 211 TH/MM3 (150-450); RED BLOOD COUNT 4.67 MIL/MM3 (4.50-5.90); RED CELL DISTRIBUTION WIDTH 14.5 % (11.6-17.2); WHITE BLOOD COUNT 21.3 TH/MM3 (4.0-11.0)
[2017-06-14 03:27] LABS: ALBUMIN 2.1 GM/DL (3.4-5.0); DIRECT BILIRUBIN ADULT 0.1 MG/DL (0.0-0.2); INDIRECT BILIRUBIN 0.3 MG/DL (0.0-0.8); MAGNESIUM 3.2 MG/DL (1.5-2.5); TOTAL BILIRUBIN ADULT 0.4 MG/DL (0.2-1.0); TOTAL PROTEIN 6.5 GM/DL (6.4-8.2)
[2017-06-14 03:47] LABS: PHOSPHORUS 12.1 MG/DL (2.5-4.9)
[2017-06-14] MEDS: CHLORHEXIDINE GLUCONATE 2 % 1 PACK (2 CLOTHS) TOP SCH (04:00)
[2017-06-14] MEDS: INSULIN ASPART SUPPLEMENTAL SCALE SQ SCH ×2 (04:00→10:00)
[2017-06-14] MEDS ORDERED: INSULIN HUMAN REGULAR 1,000 UNITS/10 ML VIAL IV PUSH ONE (06:00)
[2017-06-14] MEDS ORDERED: DEXTROSE 50% IN WATER 50 ML VIAL(D50) IV ONE (06:00)
--- NOTE | 2017-06-14 06:21 | RADRPT ---
EXAM DATE/TIME: 06/14/2017 05:08 [facility] COMPARISON: CHEST SINGLE AP, June 13, 2017, 4:26. INDICATIONS : Respiratory failure. MEDICAL HISTORY : Chronic obstructive pulmonary disease. SURGICAL HISTORY : Left clavicle. ENCOUNTER: Subsequent ACUITY: 1 week PAIN SCORE: Non-responsive. LOCATION: Bilateral chest FINDINGS: 2 AP views of the chest. Endotracheal tube, nasogastric tube, right IJ central venous catheter remain in place. Left lung base atelectasis versus consolidation unchanged. No evidence of pleural effusion or pneumothorax. CONCLUSION: No significant change. Persistent left lower lobe atelectasis versus consolidation. Kurtis Casillas MD on June 14, 2017 at 6:18 Board Certified Radiologist. This report was verified electronically.
[2017-06-14] MEDS: hydrALAZINE HCL 20 MG/ML VIAL IV PUSH PRN (06:32)
[2017-06-14] MEDS: HEPARIN SODIUM - SQ 10,000 UNITS/ML VIAL SQ SCH (09:00)
[2017-06-14] MEDS: SODIUM CHLORIDE 0.9% FLUSH 10 ML FLUSH IV FLUSH SCH (09:00)
[2017-06-14] MEDS: PROPRANOLOL HCL 20 MG TAB PO SCH (09:00)
[2017-06-14] MEDS: ARTIFICIAL TEARS OPTH OINT 3.5 APPLIC/3.5 GM TUBO EACH EYE SCH (09:00)
[2017-06-14] MEDS: DOCUSATE SODIUM 50 MG/SENNA 8.6 MG TAB PO SCH (09:00)
[2017-06-14] MEDS: INSULIN DETEMIR 100 UNITS/ML VIAL SQ SCH (09:00)
[2017-06-14] MEDS: CALCIUM ACETATE 667 MG CAP PO SCH ×2 (09:00→12:26)
[2017-06-14] MEDS: FAMOTIDINE 20 MG TAB PO SCH (09:00)
--- NOTE | 2017-06-14 09:54 | HHI.NPPN ---
Subjective Renal Failure: Acute History of Present Illness Patient is a 56 yo Male with PMH of COPD on O2 dependent, HTN and DM. Presented to [facility] ED following asystolic cardiac arrest. Per records patient has had a cough for over a week and just not feeling well. Reportedly ROSC was achieved after 9 minutes of CPR per E VAC. Patient is intubated and sedated currently. On therapeutic cool therapy. Nephrology was consulted for acute kidney injury with a creatinine of 3.78. UOP approximately 10 ml overnight and 10 ml today. Patient has received a fluid bolus and is currently on a bicarb gtt. Patient does not have a past medical history of CKD. Additional Remarks Patient remains intubated and unresponsive. Potassium level continues to be elevated. Seen during HD. (Leyla Tello) Review of Systems General General Remarks Unable to do ROS as patient is intubated (Leyla Tello) Objective Data Data Vital Signs Date Time Temp Pulse Resp B/P (MAP) Pulse Ox O2 Delivery O2 Flow Rate FiO2 06/14/17 08:01 93 40 06/14/17 06:00 95 06/14/17 04:43 94 40 06/14/17 04:00 35 06/14/17 04:00 95 06/14/17 04:00 100.2 95 181/104 (129) 93 06/14/17 00:05 95 40 06/14/17 00:00 96 06/14/17 00:00 35 06/14/17 00:00 100.6 97 164/94 (117) 94 06/13/17 22:00 100.6 96 159/93 (115) 93 06/13/17 22:00 96 06/13/17 21:00 100.2 93 133/87 (102) 93 06/13/17 20:40 94 40 06/13/17 20:00 97 06/13/17 20:00 35 06/13/17 20:00 99.9 100 174/97 (122) 93 06/13/17 18:30 96 06/13/17 18:00 94 06/13/17 17:40 35 06/13/17 17:36 95 35 06/13/17 17:30 98.1 94 133/86 (102) 93 06/13/17 17:30 94 06/13/17 17:00 97.9 91 121/81 (94) 94 06/13/17 17:00 91 06/13/17 16:45 97.7 90 123/82 (96) 92 06/13/17 16:45 90 06/13/17 16:30 90 06/13/17 16:30 97.5 90 103/70 (81) 94 06/13/17 16:17 97.3 90 127/82 (97) 93 06/13/17 16:17 90 06/13/17 16:15 97.3 91 92/65 (74) 94 06/13/17 16:15 91 06/13/17 16:02 97.2 91 98/67 (77) 93 06/13/17 16:02 91 06/13/17 16:00 91 06/13/17 16:00 97.2 91 94/62 (73) 93 06/13/17 15:00 83 06/13/17 14:38 80 06/13/17 14:37 80 06/13/17 14:36 80 06/13/17 14:35 80 06/13/17 14:34 80 06/13/17 14:00 80 06/13/17 12:00 95.9 83 95 06/13/17 12:00 35 06/13/17 12:00 83 06/13/17 11:02 97 35 06/13/17 11:00 96.1 85 155/89 (111) 97 06/13/17 11:00 85 06/13/17 10:00 96 60 06/13/17 09:55 87 06/13/17 09:55 96.6 87 155/89 (111) 94 (Leyla Tello) -: 06/14/17 0215 06/14/17 0215 Tubes & Lines: Vas-Cath, Bruner (Leyla Tello) Physical Exam General Appearance: No Acute Distress, Obese Appearance Remarks intubated (Leyla Tello) Throat Throat Exam: Oral Mucosa [place] & Moist (Leyla Tello) Pulmonary Resp Exam: Breath Sounds Equal, No Distress (Leyla Tello) Cardiology CV Exam: Regular (Leyla Tello) Gastrointestinal/Abdomen GI Exam: Soft, Non-Tender, Distended (Leyla Tello) Genitourinary Remarks minimal uop (Leyla Tello) Integumentary Skin Exam: Clear, Warm, Dry (Leyla Tello) Extremeties Extremities Exam: Moderate Edema (Leyla Tello) Neurologic Neuro Exam: Unresponsive (Leyla Tello) Assessment/Plan Problem List: (1) Acute kidney injury ICD Codes: N17.9 - Acute kidney failure, unspecified Plan: Acute kidney injury most likely ATN from cardiopulmonary arrest. Renal US with no acute findings HD started on 06/07 via vas cath UOP remains minimal Brain scan noted. Plan Avoid nephrotoxins as possible Renal dose antibiotics Continue to monitor UOP and BMP HD today yesterday UF for 3 liters Hyperkalemia again today at 6.7 with Insulin and D50 given again Seen during HD today Plan for possible comfort care measures on Saturday, family still to arrive. (2) Respiratory failure ICD Codes: J96.90 - Respiratory failure, unspecified, unspecified whether with hypoxia or hypercapnia Plan: Intubated (3) Cardiorespiratory arrest ICD Codes: I46.9 - Cardiac arrest, cause unspecified Status: Acute (Leyla Tello) Problem List: (1) Acute kidney injury ICD Codes: N17.9 - Acute kidney failure, unspecified Plan: Acute kidney injury most likely ATN from cardiopulmonary arrest. Renal US with no acute findings HD started on 06/07 via vas cath UOP remains minimal Brain scan noted. Plan Avoid nephrotoxins as possible Renal dose antibiotics Continue to monitor UOP and BMP HD today yesterday UF for 3 liters Hyperkalemia again today at 6.7 with Insulin and D50 given again Seen during HD today Plan for possible comfort care measures on Saturday, family still to arrive. Patient seen in AM, agree with above. Family decided to withdraw after HD. (2) Respiratory failure ICD Codes: J96.90 - Respiratory failure, unspecified, unspecified whether with hypoxia or hypercapnia Plan: Intubated (3) Cardiorespiratory arrest ICD Codes: I46.9 - Cardiac arrest, cause unspecified Status: Acute (Jana Martin MD) Leyla Tello Jun 14, 2017 09:54 Jana Martin MD Jun 14, 2017 17:37
[2017-06-14] MEDS: HEPARIN SODIUM - IV 10,000 UNITS/10 ML VIAL PRN (10:54)
[2017-06-14] MEDS: GENTAMICIN SULFATE 20 MG/2 ML VIAL OTHER PRN (10:54)
[2017-06-14] MEDS: SODIUM CHLOR 0.9% 1000 ML INJ 1,000 ML IV PRN (10:54)
[2017-06-14] MEDS: CHLORHEXIDINE 0.12% (ORAL KIT) 15 ML CUP MT SCH (11:14)
--- NOTE | 2017-06-14 11:21 | HHI.CCPN ---
Subjective Remarks/Hospital Course 06/04: 56 yo Male with PMH of COPD on 2L home O2, HTN, DM who presented to [facility] [place] [facility] following asystolic cardiac arrest. states he was in bed most the day. She tried to get him to seek medical attention but he initially refused. She noted that he was having respiratory difficulties so she made preparations to call [facility]. She went into check on him again and he was unresponsive. He was in asystole when [facility] arrived. had not administered bystander CPR. He was intubated in the field and CPR was initiated. Reportedly ROSC was achieved after 9 minutes of CPR per [facility]. He was hypotensive and was started on dopamine per [facility]AC which was continued in the ED and is currently running at 20 mcg/kg/min. Glucose was 145. His GCS was 3 on arrival and he had anisocoria. However as per the paramedics the said he has history of unequal pupil and the left one being fixed and nonreactive (however she denied this when I inquired about it later that evening??) states he had PFT's Wed per Dr. Eli and has had cough ever since. Had not complained of chest pain but had been having headaches and R leg pain since Lortab was recently discontinued by his physician. 06/05: Remains sedated, orally intubated on mechanical ventilation. Was on neuromuscular blockade which is currently being discontinued. Urine output 10 cc overnight. Given fluid bolus now and renal ultrasound ordered. 06/06: Remains sedated, orally intubated on mechanical ventilation. On propofol for sedation. Off neuromuscular blockade since yesterday. Essentially anuric renal failure. 06/07: Off sedation for more than 24 hours, remains comatose, orally intubated on mechanical ventilation. Vas-Cath placed and started hemodialysis today. 06/08: Remains comatose off sedation, orally intubated on mechanical ventilation. 06/09: Remains comatose off sedation, orally intubated on mechanical ventilation. Awaiting EEG this morning. Tube feeds held this morning for high residuals. Dialyzed yesterday. 06/10: Remains, dose of sedation. Being dialyzed. Consulted neurology for brain eval. Flow study ordered. 06/11: T-max 99.1. No change in neurological status. Cerebral blood flow revealed some cortical activity. Repeat study planned in the near future per neurology recommendations. Reglan instituted yesterday every 8 hours Glucerna initiated at trickle feeds. 06/12: No neurological change overnight. The patient remains comatose. The patient was noted to have a potassium of 6.8 early this a.m., no ectopy noted. The patient received Kayexalate and calcium and insulin and D50. Patient was dialyzed early this am. Repeat BMP pending. Tube feeds changed from Glucerna to Nepro. Patient intolerant of tube feeds. discussion with Dr. Devlin palliative care software team leader family awaiting arrival of patient's brother. Patient's CODE STATUS changed to DNR. Plan for possible institution of comfort care measures on Saturday. 06/13: T-max 99.5. Patient underwent IHD yesterday with 3 L removed . Repeat labs ,last evening patient was noted to have a potassium level of 6.1 received Kayexalate. Labs pending this a.m.. No ectopy noted, telemetry sinus rhythm. No change in neurological status the patient remains encephalopathic. Cerebral blood flow studies pending this a.m.. 06/14: Potassium level remains elevated this a.m., insulin and D50 given this a.m. IHD performed 1 L removed this a.m. the patient remains encephalopathic. Family has requested that they would like comfort care measures instituted today , upon arrival to the hospital. Objective Vital Signs Date Time Temp Pulse Resp B/P (MAP) Pulse Ox O2 Delivery O2 Flow Rate FiO2 06/14/17 08:01 93 40 06/14/17 06:00 95 06/14/17 04:00 100.2 181/104 (129) 06/13/17 04:00 16 Intake and Output 06/14/17 06/14/17 06/15/17 08:00 16:00 00:00 Intake Total 199 ml Output Total 210 ml 1000 ml Balance -11 ml -1000 ml Result Diagram: 06/14/17 0215 06/14/17 0215 Imaging Last Impressions Chest X-Ray 06/14/17 0600 Signed Impressions: Service Date/Time: Wednesday, June 14, 2017 05:08 - CONCLUSION: No significant change. Persistent left lower lobe atelectasis versus consolidation. Kurtis Casillas MD Brain Flow Nuclear Medicine 06/13/17 1000 Signed Impressions: Service Date/Time: June 10:06 - CONCLUSION: There is activity discernible in the sagittal sinus. Therefore, this scan does not meet the nuclear imaging criteria for brain . Terrell Dozier MD Abdomen/Pelvis CT 06/10/17 0000 Signed Impressions: Service Date/Time: Saturday, June 10, 2017 13:58 - CONCLUSION: 1. Left lower lobe consolidation. Small bilateral pleural effusions. 2. No focal abnormalities seen in the liver on this noncontrast study. 3. Large left inguinal hernia containing portions of the sigmoid colon. No dilated loops of small or large bowel. Terrell Dozier MD Renal Ultrasound 06/05/17 0000 Signed Impressions: Service Date/Time: Monday, June 05, 2017 11:50 - CONCLUSION: No hydronephrosis Jakob Carter MD Head CT 06/04/17 1555 Signed Impressions: Service Date/Time: Sunday, June 04, 2017 16:42 - CONCLUSION: Normal examination. Ludin Woods MD Last Impressions Chest X-Ray 06/13/17 0600 Signed Impressions: Service Date/Time: June 04:26 - CONCLUSION: No significant change Jakob Carter MD Brain Flow Nuclear Medicine 06/10/17 0000 Signed Impressions: Service Date/Time: Saturday, June 10, 2017 12:56 - CONCLUSION: There is some cortical activity seen in the left hemisphere and activity is seen in the sagittal sinus. Therefore, this study does not meet the nuclear imaging criteria for brain . Terrell Dozier MD Abdomen/Pelvis CT 06/10/17 0000 Signed Impressions: Service Date/Time: Saturday, June 10, 2017 13:58 - CONCLUSION: 1. Left lower lobe consolidation. Small bilateral pleural effusions. 2. No focal abnormalities seen in the liver on this noncontrast study. 3. Large left inguinal hernia containing portions of the sigmoid colon. No dilated loops of small or large bowel. Terrell Dozier MD Renal Ultrasound 06/05/17 0000 Signed Impressions: Service Date/Time: Monday, June 05, 2017 11:50 - CONCLUSION: No hydronephrosis Jakob Carter MD Head CT 06/04/17 1555 Signed Impressions: Service Date/Time: Sunday, June 04, 2017 16:42 - CONCLUSION: Normal examination. Ludin Woods MD Objective Remarks GENERAL: Obese male who is orotracheally intubated. Remains comatose off all sedation SKIN: Centrally warm, peripherally cool with some mottling of his knees bilaterally HEAD: Atraumatic. Normocephalic. EYES: R pupil 4-5 mm and fixed, L pupil 8 mm and nonreactive. No scleral icterus. No injection or drainage. ENT: No nasal bleeding or discharge. Mucous membranes pale. NECK: Trachea midline. No JVD. CARDIOVASCULAR: Regular rate and rhythm, sinus rhythm on monitor. No murmurs rubs or gallops. RESPIRATORY: Orally intubated on mechanical ventilation, good air entry bilaterally, scattered rhonchi, no wheezing or crackles. GASTROINTESTINAL: Abdomen soft, non-tender, nondistended. Large L inguinal hernia, not incarcerated. : urinary catheter in place MUSCULOSKELETAL: Extremities without clubbing, cyanosis, 1+ peripheral edema. NEUROLOGICAL: Comatose, orally intubated. 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 Absent gag response, absent doll's eye, absent corneal reflex, absent spontaneous respirations. A/P Assessment and Plan NEURO: Coma Anoxic Encephalopathy Depression Peripheral neuropathy Hard of hearing Hyperammonemia-resolved CT brain - normal 06/10 cerebral brain flow study-some cortical activity seen in left hemisphere and sagittal sinus 06/10 Neurology following Stop Coumadin currently. We will attempt to keep normothermic Hyperammonemia with level 52. Will avoid lactulose at this point due to metabolic derangements. Recent Wright Act for depression. Tylenol, salicylate negative. EtOH negative. Remains comatose. Suspect severe anoxic encephalopathy. Neurology consulted for brain evaluation. Brain flow study ordered with nuclear medicine. Hold gabapentin 300 daily 06/12: ammonia level- < 10 06/13 CBF study-blood flow in the sagittal sinus RESP: Acute hypercapnic and hypoxemic respiratory failure Aspiration pneumonia Acute COPD exacerbation Obstructive sleep apnea Continue mechanical ventilation Status post Therapeutic and diagnostic bronchoscopy with removal of copious mucopurulent secretions by Dr. Gomez Ventilator bundle DuoNeb every 4 hours. Albuterol every 2 hours as needed Solu-Medrol 60 mg IV every 6 hours Antibiotics as per below 4/2: CPAP trial initiated patient failed not breathing over the vent on no sedation CV: Asystolic cardiac arrest suspect secondary to severe COPD exacerbation with hypercapnia Type II NSTEMI Lactic acidemia - secondary to cardiac arrest. Essential hypertension Resumed propranolol 20 mg twice daily Mild troponin elevation secondary to type II NSTEMI Art line placed with Rene Trac for hemodynamic monitoring. Discontinued 06/11 GI: Acute ischemic hepatitis tube feeds as tolerated 06/11 changed to Glucerna -we will re-initiate trickle feeds 06/10 Reglan every 8 hours Trend LFTs FEN/RENAL: Acute kidney injury Electrolyte abnormality-hyperkalemia Anuric despite optimization of hemodynamic parameters on Flotrac. Likely secondary to ischemic ATN Renal ultrasound with no hydronephrosis Monitor electrolytes every 6 hours during cooling. Replace as indicated. Hold Celebrex and other NSAIDs Nephrology consulted. Started hemodialysis 06/07. Vas-Cath placed in right IJ 06/12: Patient received calcium, insulin and D50, and Kayexalate-potassium level 6.1 06/13 Potassium level 6.8-nephrology notified, calcium insulin and D50 and Kayexalate provided ID: Acute community acquired pneumonia versus aspiration pneumonia Severe sepsis Follow-up results of bronchial washing, blood culture. Unable to obtain urine therefore unable to obtain u/a or urine legionella or pneumococcal antigen. Influenza positive Antibiotics per ID. Growing Haemophilus influenza and sputum. Marilynn intertrigo bilateral groin nystatin topical HEME: Monitor CBC ENDO: Type II Diabetes mellitus Monitor bedside glucose every 6 hours and initiate low-dose insulin sliding scale as indicated PROPH: Heparin 5000 units subcutaneous every 12 hours for DVT prophylaxis. Famotidine for stress ulcer prophylaxis ACCESS: Left subclavian central venous line placed by ED physician 06/04. Right radial art line placed 06/04. Right femoral heat exchange catheter placed 06/04, removed 06/08 Patient's is uncertain if he has a living will. She says she believes he may have written up a living will previously and that his sister may have it; she will investigate further. Patient is full code at this time. On 06/04 Dr. Gomez discussed with patient's that neurologic prognosis appears poor at this point. Dr. Gomez also spoke with patient's sister Milagros and then his brother Abner Krueger on phone. Multiple questions answered. They are aware he is very critically ill with guarded neurologic prognosis and plan to come down from [place] this week. Dr. Gomez discussed with him that we will have limited information about his neurologic prognosis over the next several days as we complete rewarming process and subsequent sedation discontinuation. 06/[address] Palliative Care software team leader Dr. Devlin, conference with family. CODE STATUS changed to alternate. awaiting arrival of patient's brother and then possible institution of comfort care measures on Wednesday 06/14-family requesting possibly institution of comfort care measures this morning. my billing statement Level 3 follow-up Physician Milagros Monahan MD Jun 14, 2017 11:21
[2017-06-14] MEDS ORDERED: LORazepam 2 MG/ML VIAL IV PUSH ONE ×2 (12:30→12:45)
[2017-06-14] MEDS ORDERED: MORPHINE SULFATE 8 MG/ML INJ IV PUSH ONE (12:30)
[2017-06-14] MEDS ORDERED: HYOSCYAMINE 0.5 MG/ML AMP IV PUSH ONE (12:30)
[2017-06-14] MEDS ORDERED: MORPHINE SULFATE 4 MG/ML INJ IV PUSH ONE (12:45)
[2017-06-14] MEDS ORDERED: ACETAMINOPHEN 650 MG SUPP RECTAL PRN (13:00)
[2017-06-14] MEDS ORDERED: MORPHINE SULFATE 8 MG/ML INJ IV PUSH PRN (13:00)
[2017-06-14] MEDS ORDERED: MORPHINE SULFATE 4 MG/ML INJ IV PUSH PRN (13:00)
[2017-06-14] MEDS ORDERED: HYOSCYAMINE 0.5 MG/ML AMP IV PUSH PRN (13:00)
[2017-06-14] MEDS ORDERED: LORazepam 2 MG/ML VIAL IV PUSH PRN ×3 (13:00)
--- NOTE | 2017-06-14 17:13 | HHI.DS ---
Summary Note Date of : Jun 14, 2017 Time Of : 1349 Admission Date Jun 04, 2017 at 17:52 Admitting Diagnosis cardiorespiratory arrest, post code, respiratory acidosis, sepsis Diagnosis at Time of : Brief History 56 yo Male with PMH of COPD on 2L home O2, HTN, DM who presented to [facility] [place] ED following asystolic cardiac arrest. states he was in bed most the day. She tried to get him to seek medical attention but he initially refused. She noted that he was having respiratory difficulties so she made preparations to call [facility]. She went into check on him again and he was unresponsive. He was in asystole when [facility] arrived. had not administered bystander CPR. He was intubated in the field and CPR was initiated. Reportedly ROSC was achieved after 9 minutes of CPR per [facility]. He was hypotensive and was started on dopamine per [facility] which was continued in the ED and is currently running at 20 mcg/kg/min. Glucose was 145. His GCS was 3 on arrival and he had anisocoria. However as per the paramedics the said he has history of unequal pupil and the left one being fixed and nonreactive (however she denied this when I inquired about it later that evening??) states he had PFT's Wed per Dr. Eli and has had cough ever since. Had not complained of chest pain but had been having headaches and R leg pain since Lortab was recently discontinued by his physician. CBC/BMP: 06/14/17 0215 06/14/17 0215 Significant Findings Laboratory Tests Test 06/12/17 03:40 06/12/17 05:35 06/12/17 15:00 06/13/17 06:26 White Blood Count 26.1 TH/MM3 (4.0-11.0) Neutrophils (%) (Auto) 92.5 % (16.0-70.0) Lymphocytes (%) (Auto) 2.4 % (9.0-44.0) Neutrophils # (Auto) 24.1 TH/MM3 (1.8-7.7) Lymphocytes # (Auto) 0.6 TH/MM3 (1.0-4.8) Monocytes # (Auto) 1.3 TH/MM3 (0-0.9) Neutrophils % (Manual) 87 % (16-70) Lymphocytes % 4 % (9-44) Neutrophils # (Manual) 23.5 TH/MM3 (1.8-7.7) Myelocytes 1 % (0-0) Promyelocytes 1 % (0-0) Toxic Granulation 1+ (NORMAL) Toxic Vacuolation PRESENT (NONE SEEN) Blood Urea Nitrogen 166 MG/DL (7-18) 127 MG/DL (7-18) 157 MG/DL (7-18) Creatinine 9.45 MG/DL (0.60-1.30) 8.02 MG/DL (0.60-1.30) 9.45 MG/DL (0.60-1.30) Random Glucose 288 MG/DL (74-106) 252 MG/DL (74-106) 307 MG/DL (74-106) Potassium Level 6.8 MEQ/L (3.5-5.1) 6.1 MEQ/L (3.5-5.1) 6.8 MEQ/L (3.5-5.1) Anion Gap 16 MEQ/L (5-15) 20 MEQ/L (5-15) Estimat Glomerular Filtration Rate 6 ML/MIN (>89) 7 ML/MIN (>89) 6 ML/MIN (>89) Ammonia LESS THAN 10 MCMOL/L Blood Gas HCO3 21 mmol/L (22-26) Arterial Blood pH 7.47 (7.380-7.420) Arterial Blood Partial Pressure CO2 30 mmHg (38-42) Albumin 2.4 GM/DL (3.4-5.0) Phosphorus Level 10.8 MG/DL (2.5-4.9) Magnesium Level 3.5 MG/DL (1.5-2.5) Alkaline Phosphatase 130 U/L (45-117) Aspartate Amino Transf (AST/SGOT) 138 U/L (15-37) Chloride Level 97 MEQ/L (98-107) Test 06/13/17 13:34 06/14/17 02:15 White Blood Count 25.3 TH/MM3 (4.0-11.0) 21.3 TH/MM3 (4.0-11.0) Red Blood Count 4.49 MIL/MM3 (4.50-5.90) Neutrophils (%) (Auto) 85.7 % (16.0-70.0) 96.4 % (16.0-70.0) Lymphocytes (%) (Auto) 3.6 % (9.0-44.0) 1.3 % (9.0-44.0) Monocytes (%) (Auto) 10.3 % (0.0-8.0) Neutrophils # (Auto) 21.7 TH/MM3 (1.8-7.7) 20.5 TH/MM3 (1.8-7.7) Lymphocytes # (Auto) 0.9 TH/MM3 (1.0-4.8) 0.3 TH/MM3 (1.0-4.8) Monocytes # (Auto) 2.6 TH/MM3 (0-0.9) Neutrophils % (Manual) 83 % (16-70) Lymphocytes % 4 % (9-44) Monocytes % 10 % (0-8) Neutrophils # (Manual) 21.8 TH/MM3 (1.8-7.7) Promyelocytes 1 % (0-0) Toxic Granulation 1+ (NORMAL) Toxic Vacuolation PRESENT (NONE SEEN) Spherocytes 1+ (NORMAL) Ovalocytes 1+ (NORMAL) Potassium Level 6.6 MEQ/L (3.5-5.1) Phosphorus Level 12.1 MG/DL (2.5-4.9) Magnesium Level 3.2 MG/DL (1.5-2.5) Aspartate Amino Transf (AST/SGOT) 180 U/L (15-37) Alkaline Phosphatase 141 U/L (45-117) Albumin 2.1 GM/DL (3.4-5.0) Imaging Last Impressions Chest X-Ray 06/14/17 0600 Signed Impressions: Service Date/Time: Wednesday, June 14, 2017 05:08 - CONCLUSION: No significant change. Persistent left lower lobe atelectasis versus consolidation. Kurtis Casillas MD Brain Flow Nuclear Medicine 06/13/17 1000 Signed Impressions: Service Date/Time: June 10:06 - CONCLUSION: There is activity discernible in the sagittal sinus. Therefore, this scan does not meet the nuclear imaging criteria for brain . Terrell Dozier MD Abdomen/Pelvis CT 06/10/17 0000 Signed Impressions: Service Date/Time: Saturday, June 10, 2017 13:58 - CONCLUSION: 1. Left lower lobe consolidation. Small bilateral pleural effusions. 2. No focal abnormalities seen in the liver on this noncontrast study. 3. Large left inguinal hernia containing portions of the sigmoid colon. No dilated loops of small or large bowel. Terrell Dozier MD Renal Ultrasound 06/05/17 0000 Signed Impressions: Service Date/Time: Monday, June 05, 2017 11:50 - CONCLUSION: No hydronephrosis Jakob Carter MD Head CT 06/04/17 1555 Signed Impressions: Service Date/Time: Sunday, June 04, 2017 16:42 - CONCLUSION: Normal examination. Ludin Woods MD Last Impressions Chest X-Ray 06/13/17 0600 Signed Impressions: Service Date/Time: June 04:26 - CONCLUSION: No significant change Jakob Carter MD Brain Flow Nuclear Medicine 06/10/17 0000 Signed Impressions: Service Date/Time: Saturday, June 10, 2017 12:56 - CONCLUSION: There is some cortical activity seen in the left hemisphere and activity is seen in the sagittal sinus. Therefore, this study does not meet the nuclear imaging criteria for brain . Terrell Dozier MD Abdomen/Pelvis CT 06/10/17 0000 Signed Impressions: Service Date/Time: Saturday, June 10, 2017 13:58 - CONCLUSION: 1. Left lower lobe consolidation. Small bilateral pleural effusions. 2. No focal abnormalities seen in the liver on this noncontrast study. 3. Large left inguinal hernia containing portions of the sigmoid colon. No dilated loops of small or large bowel. Terrell Dozier MD Renal Ultrasound 06/05/17 0000 Signed Impressions: Service Date/Time: Monday, June 05, 2017 11:50 - CONCLUSION: No hydronephrosis Jakob Carter MD Head CT 06/04/17 1555 Signed Impressions: Service Date/Time: Sunday, June 04, 2017 16:42 - CONCLUSION: Normal examination. Ludin Woods MD Hospital Course Remarks/Hospital Course 06/04: 56 yo Male with PMH of COPD on 2L home O2, HTN, DM who presented to [facility] ED following asystolic cardiac arrest. states he was in bed most the day. She tried to get him to seek medical attention but he initially refused. She noted that he was having respiratory difficulties so she made preparations to call [facility]. She went into check on him again and he was unresponsive. He was in asystole when E [facility] arrived. had not administered bystander CPR. He was intubated in the field and CPR was initiated. Reportedly ROSC was achieved after 9 minutes of CPR per E V[facility]. He was hypotensive and was started on dopamine per EVAC which was continued in the ED and is currently running at 20 mcg/kg/min. Glucose was 145. His GCS was 3 on arrival and he had anisocoria. However as per the paramedics the said he has history of unequal pupil and the left one being fixed and nonreactive (however she denied this when I inquired about it later that evening??) states he had PFT's Wed per Dr. Eli and has had cough ever since. Had not complained of chest pain but had been having headaches and R leg pain since Lortab was recently discontinued by his physician. 06/05: Remains sedated, orally intubated on mechanical ventilation. Was on neuromuscular blockade which is currently being discontinued. Urine output 10 cc overnight. Given fluid bolus now and renal ultrasound ordered. 06/06: Remains sedated, orally intubated on mechanical ventilation. On propofol for sedation. Off neuromuscular blockade since yesterday. Essentially anuric renal failure. 06/07: Off sedation for more than 24 hours, remains comatose, orally intubated on mechanical ventilation. Vas-Cath placed and started hemodialysis today. 06/08: Remains comatose off sedation, orally intubated on mechanical ventilation. 06/09: Remains comatose off sedation, orally intubated on mechanical ventilation. Awaiting EEG this morning. Tube feeds held this morning for high residuals. Dialyzed yesterday. 06/10: Remains, dose of sedation. Being dialyzed. Consulted neurology for brain eval. Flow study ordered. 06/11: T-max 99.1. No change in neurological status. Cerebral blood flow revealed some cortical activity. Repeat study planned in the near future per neurology recommendations. Reglan instituted yesterday every 8 hours Glucerna initiated at trickle feeds. 06/12: No neurological change overnight. The patient remains comatose. The patient was noted to have a potassium of 6.8 early this a.m., no ectopy noted. The patient received Kayexalate and calcium and insulin and D50. Patient was dialyzed early this am. Repeat BMP pending. Tube feeds changed from Glucerna to Nepro. Patient intolerant of tube feeds. discussion with Dr. Devlin palliative care steam tunnel feeder family awaiting arrival of patient's brother. Patient's CODE STATUS changed to DNR. Plan for possible institution of comfort care measures on Saturday. 06/13: T-max 99.5. Patient underwent IHD yesterday with 3 L removed . Repeat labs ,last evening patient was noted to have a potassium level of 6.1 received Kayexalate. Labs pending this a.m.. No ectopy noted, telemetry sinus rhythm. No change in neurological status the patient remains encephalopathic. Cerebral blood flow studies pending this a.m.. 06/14: Potassium level remains elevated this a.m., insulin and D50 given this a.m. IHD performed 1 L removed this a.m. the patient remains encephalopathic. Family has requested that they would like comfort care measures instituted today , upon arrival to the hospital. 06/14: With family and clergy at bedside, comfort care measures were instituted. Patient at 1349. Mialgros Arreaga MD Jun 14, 2017 17:13
--- NOTE | 2017-06-14 20:47 | HHI.HCPN ---
Reason for visit a. To assist with evaluation and management of symptoms including:dyspnea; encephalopathy b. To assist medical decision maker(s) with: better understanding of current medical conditions; weighing benefits/burdens of medical treatment options; making medical treatment decisions. . Subjective/Interval History Patient remains mechanically ventilated, unresponsive, off sedation in medical ICU. Not breathing over vent. No significant change overnight. Brother and [id number] arrived. Family was at bedside this AM and requested my to visit. . . Family/friend interactions Met with spouse; father; stepmother; brother; and brother's at bedside for 30 minutes. Since brother had not spoken yet to physicians, I reviewed patient' s clinical course from paramedics to today. Discussed current clinical condition and prognosis. Discussed exam findings and blood flow studies. All questions were answered. Family (including the spouse who is the health care proxy) unanimously expressed their desire to go forward with withdrawal of life support and requested that it be done as soon as possible. I provided anticipatory guidance and details regarding withdrawal of life support and answered questions. . Advance Directives Living Will: Never completed Health Care Surrogate: Never completed Durable Power of Brattice Builder: Never completed Objective Vital Signs Date Time Temp Pulse Resp B/P (MAP) Pulse Ox O2 Delivery O2 Flow Rate FiO2 06/14/17 13:20 93 Room Air 21 06/14/17 12:00 90 06/14/17 12:00 40 06/14/17 12:00 98.4 90 158/98 (118) 94 06/14/17 11:45 90 06/14/17 11:45 98.4 90 158/98 (118) 94 06/14/17 11:32 95 40 06/14/17 11:30 98.4 89 156/100 (118) 93 06/14/17 11:30 89 06/14/17 11:15 98.6 90 146/95 (112) 93 06/14/17 11:15 90 06/14/17 11:00 89 06/14/17 11:00 98.8 89 114/80 (91) 94 06/14/17 10:45 90 06/14/17 10:45 98.8 90 113/79 (90) 94 06/14/17 10:30 98.8 90 115/78 (90) 94 06/14/17 10:30 90 06/14/17 10:15 98.8 90 119/80 (93) 94 06/14/17 10:15 90 06/14/17 10:00 98.8 90 125/81 (96) 94 06/14/17 10:00 90 06/14/17 09:45 98.8 91 132/83 (99) 94 06/14/17 09:45 91 06/14/17 09:30 98.8 91 126/79 (95) 93 06/14/17 09:30 91 06/14/17 09:18 99.0 93 166/92 (116) 93 06/14/17 09:18 93 06/14/17 09:00 99.0 95 168/94 (118) 93 06/14/17 09:00 95 06/14/17 08:30 99.1 96 167/92 (117) 92 06/14/17 08:30 96 06/14/17 08:01 93 40 06/14/17 08:00 99.1 97 163/92 (115) 92 06/14/17 08:00 97 06/14/17 08:00 40 06/14/17 06:00 95 06/14/17 04:43 94 40 06/14/17 04:00 35 06/14/17 04:00 95 06/14/17 04:00 100.2 95 181/104 (129) 93 06/14/17 00:05 95 40 06/14/17 00:00 96 06/14/17 00:00 35 06/14/17 00:00 100.6 97 164/94 (117) 94 06/13/17 22:00 100.6 96 159/93 (115) 93 06/13/17 22:00 96 06/13/17 21:00 100.2 93 133/87 (102) 93 06/13/17 20:40 94 40 . Physical Exam CONSTITUTIONAL/GENERAL: Intubated, unresponsive (off sedation) TUBES/LINES/DRAINS:ET tube, dialysis cath, jaramillo, Left subclavian central line. SKIN: Skin temperature appropriate. Not diaphoretic. EYES: Right eye patched. Left pupil fixed and dilated. ENT: Unable to assess hearing. Nose without bleeding or purulent drainage. Throat ET tube in place NECK: Trachea midline. CARDIOVASCULAR: Regular rate and rhythm without murmurs, gallops, or rubs. No JVD. RESPIRATORY/CHEST: Lungs clear. GASTROINTESTINAL: Abdomen soft, non-tender, nondistended. No hepato-splenomegaly , or palpable masses. GENITOURINARY: Without palpable bladder distension. MUSCULOSKELETAL: Extremities with 3+ edema on all extremities LYMPHATICS: Not examined NEUROLOGICAL: Unresponsive. Absent corneal reflexes. Absent gag. Does not withdraw to noxious stimuli. PSYCHIATRIC: Unable to evaluate due to level of responsiveness. . . Diagnostic Tests Laboratory Laboratory Tests Test 06/12/17 03:40 06/12/17 05:35 06/12/17 15:00 06/13/17 06:26 White Blood Count 26.1 TH/MM3 (4.0-11.0) Red Blood Count 4.66 MIL/MM3 (4.50-5.90) Hemoglobin 14.0 GM/DL (13.0-17.0) Hematocrit 42.0 % (39.0-51.0) Mean Corpuscular Volume 90.2 FL (80.0-100.0) Mean Corpuscular Hemoglobin 30.1 PG (27.0-34.0) Mean Corpuscular Hemoglobin Concent 33.4 % (32.0-36.0) Red Cell Distribution Width 14.4 % (11.6-17.2) Platelet Count 246 TH/MM3 (150-450) Mean Platelet Volume 9.0 FL (7.0-11.0) Neutrophils (%) (Auto) 92.5 % (16.0-70.0) Lymphocytes (%) (Auto) 2.4 % (9.0-44.0) Monocytes (%) (Auto) 4.8 % (0.0-8.0) Eosinophils (%) (Auto) 0.0 % (0.0-4.0) Basophils (%) (Auto) 0.3 % (0.0-2.0) Neutrophils # (Auto) 24.1 TH/MM3 (1.8-7.7) Lymphocytes # (Auto) 0.6 TH/MM3 (1.0-4.8) Monocytes # (Auto) 1.3 TH/MM3 (0-0.9) Eosinophils # (Auto) 0.0 TH/MM3 (0-0.4) Basophils # (Auto) 0.1 TH/MM3 (0-0.2) CBC Comment AUTO DIFF Differential Total Cells Counted 100 Neutrophils % (Manual) 87 % (16-70) Lymphocytes % 4 % (9-44) Monocytes % 6 % (0-8) Neutrophils # (Manual) 23.5 TH/MM3 (1.8-7.7) Metamyelocytes 1 % (0-1) Myelocytes 1 % (0-0) Promyelocytes 1 % (0-0) Differential Comment FINAL DIFF MANUAL Toxic Granulation 1+ (NORMAL) Toxic Vacuolation PRESENT (NONE SEEN) Platelet Estimate NORMAL (NORMAL) Platelet Morphology Comment NORMAL (NORMAL) Red Cell Morphology Comment NORMAL (NORMAL) Blood Urea Nitrogen 166 MG/DL (7-18) 127 MG/DL (7-18) 157 MG/DL (7-18) Creatinine 9.45 MG/DL (0.60-1.30) 8.02 MG/DL (0.60-1.30) 9.45 MG/DL (0.60-1.30) Random Glucose 288 MG/DL (74-106) 252 MG/DL (74-106) 307 MG/DL (74-106) Calcium Level 9.1 MG/DL (8.5-10.1) 9.0 MG/DL (8.5-10.1) 8.7 MG/DL (8.5-10.1) Sodium Level 141 MEQ/L (136-145) 138 MEQ/L (136-145) 138 MEQ/L (136-145) Potassium Level 6.8 MEQ/L (3.5-5.1) 6.1 MEQ/L (3.5-5.1) 6.8 MEQ/L (3.5-5.1) Chloride Level 100 MEQ/L (98-107) 100 MEQ/L (98-107) 97 MEQ/L (98-107) Carbon Dioxide Level 24.7 MEQ/L (21.0-32.0) 24.1 MEQ/L (21.0-32.0) 21.5 MEQ/L (21.0-32.0) Anion Gap 16 MEQ/L (5-15) 14 MEQ/L (5-15) 20 MEQ/L (5-15) Estimat Glomerular Filtration Rate 6 ML/MIN (>89) 7 ML/MIN (>89) 6 ML/MIN (>89) Ammonia LESS THAN 10 MCMOL/L Blood Gas Puncture Site FEM Blood Gas Patient Temperature 98.6 Blood Gas HCO3 21 mmol/L (22-26) Blood Gas Base Excess -2.0 mmol/L (-2-2) Blood Gas Oxygen Saturation 96 % (90-100) Arterial Blood pH 7.47 (7.380-7.420) Arterial Blood Partial Pressure CO2 30 mmHg (38-42) Arterial Blood Partial Pressure O2 108 mmHg (61-120) Arterial Blood Oxygen Content 19.8 Vol % (12.0-20.0) Arterial Blood Carboxyhemoglobin 0.7 % (0-4) Arterial Blood Methemoglobin 1.5 % (0-2) Blood Gas Hemoglobin 14.6 G/DL (12.0-16.0) Oxygen Delivery Device VENTILATOR Blood Gas Ventilator Setting PRVC/AC Blood Gas Inspired Oxygen 35 % Total Protein 6.6 GM/DL (6.4-8.2) Albumin 2.4 GM/DL (3.4-5.0) Phosphorus Level 10.8 MG/DL (2.5-4.9) Magnesium Level 3.5 MG/DL (1.5-2.5) Alkaline Phosphatase 130 U/L (45-117) Aspartate Amino Transf (AST/SGOT) 138 U/L (15-37) Alanine Aminotransferase (ALT/SGPT) 40 U/L (12-78) Total Bilirubin 0.4 MG/DL (0.2-1.0) Direct Bilirubin 0.1 MG/DL (0.0-0.2) Test 06/13/17 13:34 06/14/17 02:15 White Blood Count 25.3 TH/MM3 (4.0-11.0) 21.3 TH/MM3 (4.0-11.0) Red Blood Count 4.49 MIL/MM3 (4.50-5.90) 4.67 MIL/MM3 (4.50-5.90) Hemoglobin 13.5 GM/DL (13.0-17.0) 14.1 GM/DL (13.0-17.0) Hematocrit 40.6 % (39.0-51.0) 42.3 % (39.0-51.0) Mean Corpuscular Volume 90.4 FL (80.0-100.0) 90.6 FL (80.0-100.0) Mean Corpuscular Hemoglobin 29.9 PG (27.0-34.0) 30.2 PG (27.0-34.0) Mean Corpuscular Hemoglobin Concent 33.1 % (32.0-36.0) 33.4 % (32.0-36.0) Red Cell Distribution Width 14.2 % (11.6-17.2) 14.5 % (11.6-17.2) Platelet Count 232 TH/MM3 (150-450) 211 TH/MM3 (150-450) Mean Platelet Volume 9.3 FL (7.0-11.0) 9.2 FL (7.0-11.0) Neutrophils (%) (Auto) 85.7 % (16.0-70.0) 96.4 % (16.0-70.0) Lymphocytes (%) (Auto) 3.6 % (9.0-44.0) 1.3 % (9.0-44.0) Monocytes (%) (Auto) 10.3 % (0.0-8.0) 2.1 % (0.0-8.0) Eosinophils (%) (Auto) 0.1 % (0.0-4.0) 0.0 % (0.0-4.0) Basophils (%) (Auto) 0.3 % (0.0-2.0) 0.2 % (0.0-2.0) Neutrophils # (Auto) 21.7 TH/MM3 (1.8-7.7) 20.5 TH/MM3 (1.8-7.7) Lymphocytes # (Auto) 0.9 TH/MM3 (1.0-4.8) 0.3 TH/MM3 (1.0-4.8) Monocytes # (Auto) 2.6 TH/MM3 (0-0.9) 0.4 TH/MM3 (0-0.9) Eosinophils # (Auto) 0.0 TH/MM3 (0-0.4) 0.0 TH/MM3 (0-0.4) Basophils # (Auto) 0.1 TH/MM3 (0-0.2) 0.0 TH/MM3 (0-0.2) CBC Comment AUTO DIFF AUTO DIFF Differential Total Cells Counted 100 Neutrophils % (Manual) 83 % (16-70) Band Neutrophils % 1 % (0-6) Lymphocytes % 4 % (9-44) Monocytes % 10 % (0-8) Neutrophils # (Manual) 21.8 TH/MM3 (1.8-7.7) Metamyelocytes 1 % (0-1) Promyelocytes 1 % (0-0) Differential Comment FINAL DIFF MANUAL AUTO DIFF CONFIRMED Toxic Granulation 1+ (NORMAL) Toxic Vacuolation PRESENT (NONE SEEN) Platelet Estimate NORMAL (NORMAL) Platelet Morphology Comment NORMAL (NORMAL) Spherocytes 1+ (NORMAL) Ovalocytes 1+ (NORMAL) Potassium Level 6.6 MEQ/L (3.5-5.1) Phosphorus Level 12.1 MG/DL (2.5-4.9) Magnesium Level 3.2 MG/DL (1.5-2.5) Total Bilirubin 0.4 MG/DL (0.2-1.0) Direct Bilirubin 0.1 MG/DL (0.0-0.2) Indirect Bilirubin 0.3 MG/DL (0.0-0.8) Aspartate Amino Transf (AST/SGOT) 180 U/L (15-37) Alanine Aminotransferase (ALT/SGPT) 51 U/L (12-78) Alkaline Phosphatase 141 U/L (45-117) Total Protein 6.5 GM/DL (6.4-8.2) Albumin 2.1 GM/DL (3.4-5.0) . Result Diagram: 06/14/1721406/14/175 Microbiology Microbiology Date/Time Source Procedure Growth Status 06/10/17 20:45 Blood Peripheral Aerobic Blood Culture - Preliminary NO GROWTH IN 4 DAYS Resulted 06/10/17 20:45 Blood Peripheral Anaerobic Blood Culture - Preliminary NO GROWTH IN 4 DAYS Resulted 06/10/17 19:30 Sputum Endotracheal Gram Stain - Final Complete 06/10/17 19:30 Sputum Endotracheal Sputum Culture - Final MODERATE GROWTH NORMAL RESPIRATORY KIM Complete 06/10/17 20:45 Urine Catheterized Urine Urine Culture - Final NO GROWTH IN 48 HOURS. Complete . Imaging Last Impressions Chest X-Ray 06/14/17 0600 Signed Impressions: Service Date/Time: Wednesday, June 14, 2017 05:08 - CONCLUSION: No significant change. Persistent left lower lobe atelectasis versus consolidation. Kurtis Casillas MD Brain Flow Nuclear Medicine 06/13/17 1000 Signed Impressions: Service Date/Time: June 10:06 - CONCLUSION: There is activity discernible in the sagittal sinus. Therefore, this scan does not meet the nuclear imaging criteria for brain . Terrell Dozier MD Abdomen/Pelvis CT 06/10/17 0000 Signed Impressions: Service Date/Time: Saturday, June 10, 2017 13:58 - CONCLUSION: 1. Left lower lobe consolidation. Small bilateral pleural effusions. 2. No focal abnormalities seen in the liver on this noncontrast study. 3. Large left inguinal hernia containing portions of the sigmoid colon. No dilated loops of small or large bowel. Terrell Dozier MD Renal Ultrasound 06/05/17 0000 Signed Impressions: Service Date/Time: Monday, June 05, 2017 11:50 - CONCLUSION: No hydronephrosis Jakob Carter MD Head CT 06/04/17 1555 Signed Impressions: Service Date/Time: Sunday, June 04, 2017 16:42 - CONCLUSION: Normal examination. Ludin Woods MD . Assessment and Plan Disease Oriented Problem List: (1) Encephalopathy Comment: Severe. No brain stem reflexes. Minimal brain flow. . (2) Septic shock (3) Cardiorespiratory arrest (4) Respiratory failure Comment: pneumonia (5) Acute kidney injury Comment: Requiring hemodialysis. . Symptom Scale: (1) Dyspnea 0-10 Scale: Unable to quantify Comment: Managed on the ventilator. . Pertinent Non-Medical Issues Psychosocial:Lives with . On disablility. No children Spiritual:Congregation Legal: Per , she had confirmed with his sister, pt has no advance directives. Ethical issues impacting care:Patient is incapacitated and has no reasonable probability of recovering capacity. . Important Contacts Edith Silva [phone] . Prognosis Patient has a history of COPD, chronic pain that was found by to be unresponsive. EVAC found patient to be in asystole, where CPR was initiated and patient intubated. Now with severe anoxic encephalopathy. Is not breathing over vent. There is loss of brain stem reflexes. Brain flow study showing minimal flow. Chances of survival are bleak. Essentially no chance of meaningful recovery. . Code Status: No Code Plan == Code Status : NO CODE == Decision making: Patient is incapacitated to make his own health care decisions. There is no reasonable probability that he will regain capacity to do so. No advance directive. Pt's -- Edith Silva -- is proxy healthcare decision maker. == Symptoms * Pain: Uncertain if patient is able to experience pain at this time given extent of anoxic brain injury. Not receiving opiates. No further recommendations at this time. * Dyspnea- currently managed with mechanical ventilation. Uncertain if patient is able to experience subjective shortness of breath given extent of anoxic brain injury. No further recommendations at this time. == Goals of medical treatment: Family has opted to proceed with withdrawal of life support today. == Family provided anticipatory guidance regarding withdrawal of life support and questions answered. == Appropriate "Exhibits" signed and witnessed. == I personally wrote withdrawl orders == Project Scheduler services offered and accepted. Provided laborer egg producing farm with case details. == Case discussed with Cardiac Catheterization Technologist == Case and orders discussed with bedside nurse. . Time Spent Total Floor Time (mins): 80 (Total floor time included chart review; patient exam; above referenced family meeting; discussion of case with Dr. Arreaga and bedside nurse; order writing; other documentation.) Face to Face Time (mins): 35 >50% Counseling/Coord of Care: Yes Attestation To help prompt me to consider important information that might be impacting today's encounter and assessment, information from prior notes written by myself or my colleagues may have been "brought forward" into today's note. My signature on this note, however, is an attestation that I personally performed the exam, history, and/or decision-making noted today, and, unless otherwise indicated, the interactions with patient, family, and staff as well as the review of records all occurred today. I also attest that the listed assessment and stated plan reflect my best clinical judgment today based on the combination of historical information, prior notes, and today's exam/ interactions. When time spent is documented, it refers only to time spent today by the signer, or if indicated, combined time spent today by collaborating physician/nurse practitioner. . Jesse Devlin MD Jun 14, 2017 20:47
== END 2017-06-14 13:49 | disposition expired | DRG 853 ==
LOC: NEPE 15:45 → NEDA 17:52 → NEDH 17:52 → HIMN 19:25
PROVIDERS: ADMIT Emergency Medicine; ATTEND Emergency Medicine
PROC: 0B9D8ZX Drainage of Right Middle Lung Lobe, Via Natural or Artificial Opening Endoscopic, Diagnostic (ICD-10-PCS; principal; 2017-06-04)
PROC: 03HY32Z Insertion of Monitoring Device into Upper Artery, Percutaneous Approach (ICD-10-PCS; 2017-06-04)
PROC: 5A1955Z Respiratory Ventilation, Greater than 96 Consecutive Hours (ICD-10-PCS; 2017-06-04)
PROC: 02HV33Z Insertion of Infusion Device into Superior Vena Cava, Percutaneous Approach (ICD-10-PCS; 2017-06-04)
PROC: 06HY33Z Insertion of Infusion Device into Lower Vein, Percutaneous Approach (ICD-10-PCS; 2017-06-04)
PROC: 5A1D70Z Performance of Urinary Filtration, Intermittent, Less than 6 Hours Per Day (ICD-10-PCS; 2017-06-07)
PROC: 02HV33Z Insertion of Infusion Device into Superior Vena Cava, Percutaneous Approach (ICD-10-PCS; 2017-06-07)
DX: A41.9 Sepsis, unspecified organism (principal); I21.A1 Myocardial infarction type 2; N17.0 Acute kidney failure with tubular necrosis; R65.21 Severe sepsis with septic shock; G93.1 Anoxic brain damage, not elsewhere classified; J96.01 Acute respiratory failure with hypoxia; J96.02 Acute respiratory failure with hypercapnia; J69.0 Pneumonitis due to inhalation of food and vomit; E72.20 Disorder of urea cycle metabolism, unspecified; J10.01 Influenza due to other identified influenza virus with the same other identified influenza virus pneumonia; E87.2 Acidosis; J44.1 Chronic obstructive pulmonary disease with (acute) exacerbation; K52.1 Toxic gastroenteritis and colitis; R34 Anuria and oliguria; Z51.5 Encounter for palliative care; Z86.74 Personal history of sudden cardiac arrest; Z99.81 Dependence on supplemental oxygen; I10 Essential (primary) hypertension; E11.42 Type 2 diabetes mellitus with diabetic polyneuropathy; R40.2432 Glasgow coma scale score 3-8, at arrival to emergency department; H57.02 Anisocoria; F32.9 Major depressive disorder, single episode, unspecified; H91.90 Unspecified hearing loss, unspecified ear; Z96.641 Presence of right artificial hip joint; Z96.612 Presence of left artificial shoulder joint; F17.290 Nicotine dependence, other tobacco product, uncomplicated; K75.89 Other specified inflammatory liver diseases; B37.2 Candidiasis of skin and nail; Z66 Do not resuscitate; G89.21 Chronic pain due to trauma; E87.5 Hyperkalemia; G47.33 Obstructive sleep apnea (adult) (pediatric); M19.90 Unspecified osteoarthritis, unspecified site; T36.95XA Adverse effect of unspecified systemic antibiotic, initial encounter; Z87.820 Personal history of traumatic brain injury
CPT/HCPCS: 31624; 36556; 36600; 43753; 51702; 70450; 71045; 74176; 76775; 76937; 78606; 80048; 80053; 80074; 80076; 80202; 80307; 81001; 82140; 82248; 82550; 82552; 82570; 82805; 82948; 83605; 83735; 84100; 84132; 84155; 84300; 84443; 84484; 85007; 85025; 85027; 85610; 86850; 86900; 86901; 87040; 87070; 87077; 87086; 87184; 87185; 87205; 87493; 87641; 87804; 90935; 92950; 93005; 93306; 94002; 94003; 94640; 94664; 95819; 96365; 96368; 96374; 96375; A9539; J0360; J0456; J0696; J1265; J1580; J1644; J1720; J1815; J1940; J1980; J2060; J2250; J2270; J2543; J2765; J2930; J3010; J3370; J7030; J7050; J7120; J7608; J7613; P9047